=== PATIENT | female | born 1995 | race Hispanic/Latino ===

== ENCOUNTER 2018-11-28 20:13 | Emergency (ER) | payer BC, SELFPAY ==
[2018-11-28] MEDS ORDERED: NA CHLORIDE 0.9% 1,000 ML ONE (21:11)
[2018-11-28 21:26] LABS: Absolute Lymphocytes (CBC) 2.6 K/uL (0.7-4.9); Absolute Monocytes 0.4 K/uL (0.1-1.3); Absolute Neutrophil 3.4 K/uL (1.8-8.0); Basophils % 0.4 % (0-1.3); Eosinophils % 0.8 % (0-4.4); Hematocrit 42.7 % (36.0-45.0); Lymphocytes % 40.4 % (15.3-44.8); MPV 9.7 fL (7.6-11.3); Monocytes % 6.1 % (3.3-12.3); RBC Red Blood Cell Count 4.74 M/uL (3.86-4.86)
[2018-11-28 21:38] LABS: ALT/SGPT 23 U/L (12-78); AST/SGOT 20 U/L (15-37); Albumin 4.8 g/dL (3.4-5.0); Alkaline Phosphatase 76 U/L (45-117); BUN Blood Urea Nitrogen 11 mg/dL (7-18); Bicarbonate 29 mmol/L (21-32); Bilirubin Direct 0.1 mg/dL (0-0.2); Bilirubin Total 0.4 mg/dL (0.2-1.0); Glucose Level 94 mg/dL (74-106); Lipase 110 U/L (73-393); Potassium 3.7 mmol/L (3.5-5.1); Protein, Total 8.7 g/dL (6.4-8.2); Sodium Level 139 mmol/L (136-145)
[2018-11-28 22:51] LABS: Urine Blood 3+ (NEG); Urine Glucose NEGATIVE (NEG); Urine Protein NEGATIVE (NEG); Urine Specific Gravity 1.015 (1.005-1.030)
--- NOTE | 2018-11-28 23:57 | EDPHYS ---
Physician Documentation [facility] Name: Raghavendra Dominguez Age: 23 yrs Sex: Female : 1995 Arrival Date: 11/28/2018 Time: 20:20 Bed 13 Private MD: ED Physician Yovanny Talley HPI: 11/28 20:58 This 23 yrs old Female presents to ER via Ambulatory with complaints of pkl Abdominal Pain. 20:58 The patient presents with abdominal pain in the left upper quadrant, in the left lower pkl quadrant. Onset: The symptoms/episode began/occurred yesterday. The symptoms do not radiate. Associated signs and symptoms: none. 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 - Social history:: Smoking status: Patient/guardian denies using tobacco. - Ebola Screening: : No symptoms or risks identified at this time. ROS: 20:58 Eyes: Negative for injury, pain, redness, and discharge, ENT: Negative for injury, pkl pain, and discharge, Neck: Negative for injury, pain, and swelling, Cardiovascular: Negative for chest pain, palpitations, and edema, Respiratory: Negative for shortness of breath, cough, wheezing, and pleuritic chest pain. 20:58 Abdomen/GI: Positive for abdominal pain, of the left upper quadrant and left lower quadrant. 20:58 Back: Negative for acute changes. 20:58 : Negative for urinary symptoms. 20:58 MS/extremity: Negative for acute changes. 20:58 Skin: Negative for rash. 20:58 Neuro: Negative for altered mental status. Exam: 20:58 Head/Face: Normocephalic, atraumatic. Eyes: Pupils equal round and reactive to light, pkl extra-ocular motions intact. Lids and lashes normal. Conjunctiva and sclera are non-icteric and not injected. Cornea within normal limits. Periorbital areas with no swelling, redness, or edema. ENT: Nares patent. No nasal discharge, no septal abnormalities noted. Tympanic membranes are normal and external auditory canals are clear. Oropharynx with no redness, swelling, or masses, exudates, or evidence of obstruction, uvula midline. Mucous membranes moist. Neck: Trachea midline, no thyromegaly or masses palpated, and no cervical lymphadenopathy. Supple, full range of motion without nuchal rigidity, or vertebral point tenderness. No Meningismus. Chest/axilla: Normal chest wall appearance and motion. Nontender with no deformity. No lesions are appreciated. Cardiovascular: Regular rate and rhythm with a normal S1 and S2. No gallops, murmurs, or rubs. Normal PMI, no JVD. No pulse deficits. Respiratory: Lungs have equal breath sounds bilaterally, clear to auscultation and percussion. No rales, rhonchi or wheezes noted. No increased work of breathing, no retractions or nasal flaring. 20:58 Abdomen/GI: Bowel sounds: normal, Palpation: soft, mild abdominal tenderness, in the left upper quadrant and left lower quadrant. 20:58 Back: Exam negative for acute changes. 20:58 : Exam negative for acute changes. 20:58 Musculoskeletal/extremity: Exam is negative for acute changes. 20:58 Skin: Exam negative for rash. 20:58 Neuro: Orientation: is normal, Mentation: is normal, Cranial nerves: grossly normal, Motor: Vital Signs: 20:40 BP 119 / 77; Pulse 83; Resp 16; Temp 98.1; Pulse Ox 100% on R/A; Weight 49.9 kg; Height aa1 5 ft. 6 in. (167.64 cm); Pain 5/10; 22:00 BP 115 / 76; Pulse 79; Resp 18; Pulse Ox 99% on R/A; rr5 23:15 BP 114 / 74; Pulse 77; Resp 17 S; Temp 98.4(O); Pulse Ox 100% on R/A; jd3 0507 00:20 BP 105 / 82; Pulse 75; Resp 17; Temp 98.4; Pulse Ox 100% on R/A; rr5 05 20:40 Body Mass Index 17.75 (49.90 kg, 167.64 cm) aa1 MDM: 11/28 20:46 Patient medically screened. pkl 23:56 Data reviewed: vital signs, nurses notes, lab test result(s), radiologic studies, CT pkl scan. 11/28 20:56 Order name: Basic Metabolic Panel; Complete Time: 22:08 pkl 11/28 20:56 Order name: CBC with Diff; Complete Time: 22:08 pkl 11/28 20:56 Order name: Creatinine for Radiology; Complete Time: 22:08 pkl 11/28 20:56 Order name: Hepatic Function; Complete Time: 22:08 pkl 11/28 20:56 Order name: Lipase; Complete Time: 22:08 pkl 11/28 21:48 Order name: Urine Dipstick--Ancillary (enter results); Complete Time: 23:54 ar5 11/28 20:56 Order name: IV Saline Lock; Complete Time: 21:17 pkl 11/28 20:56 Order name: Labs collected and sent; Complete Time: 21:17 pkl 11/28 21:48 Order name: Urine --Ancillary (enter results); Complete Time: 23:54 ar5 11/28 22:09 Order name: CT Abd/Pelvis - W/Contrast pkl Administered Medications: 21:20 Drug: NS 0.9% 1000 ml Route: IV; Rate: 1000 ml; Site: right forearm; rr5 23:00 Follow up: Response: No adverse reaction; IV Status: Completed infusion; IV Intake: rr5 1000ml Disposition: 11/28/18 23:56 Discharged to Home. Impression: Abdominal pain. - Condition is Stable. - Prescriptions for Ultram 50 mg Oral Tablet - take 1 tablet by ORAL route every 8 hours As needed; 20 tablet. - Medication Reconciliation Form, Thank You Letter, Antibiotic Education, Prescription Opioid Use, Work release form form. - Follow up: Private Physician; When: 2 - 3 days; Reason: Re-evaluation by your physician. - Problem is new. - Symptoms have improved. Signatures: Dispatcher [employer] Adrienne Russell RN RN aa1 Yovanny Talley MD MD pkl Jason Urias RN RN rr5 Corrections: (The following items were deleted from the chart) 11/29 00:25 11/28 23:56 11/28/2018 23:56 Discharged to Home. Impression: Abdominal pain. Condition rr5 is Stable. Forms are Medication Reconciliation Form, Thank You Letter, Antibiotic Education, Prescription Opioid Use. Follow up: Private Physician; When: 2 - 3 days; Reason: Re-evaluation by your physician. Problem is new. Symptoms have improved. pkl
--- NOTE | 2018-11-28 23:57 | ER ---
Nurse's Notes [facility] Name: Raghavendra Dominguez Age: 23 yrs Sex: Female : 1995 Arrival Date: 11/28/2018 Time: 20:20 Bed 13 Private MD: Diagnosis: Abdominal pain Presentation: 11/28 20:38 Presenting complaint: Patient states: she started her period yesterday and was having aa1 cramps that were worse than usual but today she began to have a sharp pain in her LUQ. Denies N/V/D. Transition of care: patient was not received from another setting of care. Onset of symptoms was November 27, 2018. Risk Assessment: Do you want to hurt yourself or someone else? Patient reports no desire to harm self or others. Initial Sepsis Screen: Does the patient meet any 2 criteria? No. Patient's initial sepsis screen is negative. Does the patient have a suspected source of infection? No. Patient's initial sepsis screen is negative. Care prior to arrival: None. 20:38 Method Of Arrival: Ambulatory aa1 20:38 Acuity: KIM 3 aa1 Triage Assessment: 20:40 General: Appears in no apparent distress. comfortable, Behavior is calm, cooperative, aa1 appropriate for age. 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 - Social history:: Smoking status: Patient/guardian denies using tobacco. - Ebola Screening: : No symptoms or risks identified at this time. Screenin:30 Abuse screen: Denies threats or abuse. Denies injuries from another. Nutritional rr5 screening: No deficits noted. Tuberculosis screening: No symptoms or risk factors identified. Fall Risk IV access (20 points). Total Barclay Fall Scale indicates No Risk (0-24 pts). Assessment: 20:50 General: Appears in no apparent distress. uncomfortable, Behavior is calm, cooperative, rr5 appropriate for age. 20:50 Pain: Complains of pain in left upper quadrant Pain does not radiate. Pain currently is rr5 5 out of 10 on a pain scale. Quality of pain is described as aching, Pain began gradually, Is intermittent. Neuro: Level of Consciousness is awake, alert, obeys commands, Oriented to person, place, time, situation, Appropriate for age. Cardiovascular: Capillary refill < 3 seconds Patient's skin is warm and dry. Respiratory: Airway is patent Respiratory effort is even, unlabored, Respiratory pattern is regular, symmetrical. GI: Abdomen is round Bowel sounds present X 4 quads. Abd is soft and non tender X 4 quads. Reports upper abdominal pain. : No signs and/or symptoms were reported regarding the genitourinary system. EENT: No signs and/or symptoms were reported regarding the EENT system. Derm: Skin is intact, Skin temperature is warm. Musculoskeletal: Capillary refill < 3 seconds, Range of motion: intact in all extremities. 21:30 Reassessment: Patient appears in no apparent distress at this time. No changes from rr5 previously documented assessment. 22:20 Reassessment: Patient appears in no apparent distress at this time. Patient is alert, rr5 oriented x 3, equal unlabored respirations, skin warm/dry/pink. awaiting for result. no complaints made. 23:30 Reassessment: Patient appears in no apparent distress at this time. Patient is alert, rr5 oriented x 3, equal unlabored respirations, skin warm/dry/pink. reexamined by ED provider, for discharge. 11/29 00:20 Reassessment: Patient appears in no apparent distress at this time. Patient is alert, rr5 oriented x 3, equal unlabored respirations, skin warm/dry/pink. discharge instruction given and explained without complaints made. Vital Signs: 11/28 20:40 BP 119 / 77; Pulse 83; Resp 16; Temp 98.1; Pulse Ox 100% on R/A; Weight 49.9 kg; Height aa1 5 ft. 6 in. (167.64 cm); Pain 5/10; 22:00 BP 115 / 76; Pulse 79; Resp 18; Pulse Ox 99% on R/A; rr5 23:15 BP 114 / 74; Pulse 77; Resp 17 S; Temp 98.4(O); Pulse Ox 100% on R/A; jd3 11/29 00:20 BP 105 / 82; Pulse 75; Resp 17; Temp 98.4; Pulse Ox 100% on R/A; rr5 11/28 20:40 Body Mass Index 17.75 (49.90 kg, 167.64 cm) aa1 ED Course: 11/28 20:20 Patient arrived in ED. mr 20:39 Triage completed. aa1 20:40 Arm band placed on right wrist. Patient placed in an exam room, on a stretcher. aa1 20:46 Yovanny Talley MD is Attending Physician. pkl 20:51 Jason Urias, PHIL is Primary Nurse. rr5 21:00 Patient has correct armband on for positive identification. Bed in low position. Call rr5 light in reach. Side rails up X2. 21:16 Inserted saline lock: 22 gauge in right antecubital area, using aseptic technique. ag4 Blood collected. 22:34 CT completed. Patient tolerated procedure well. Patient moved to CT. Patient moved back ia from CT. 22:45 CT Abd/Pelvis - W/Contrast In Process Unspecified. EDMS 11/29 00:20 No provider procedures requiring assistance completed. IV discontinued, intact, rr5 bleeding controlled, No redness/swelling at site. Pressure dressing applied. Administered Medications: 11/28 21:20 Drug: NS 0.9% 1000 ml Route: IV; Rate: 1000 ml; Site: right forearm; rr5 23:00 Follow up: Response: No adverse reaction; IV Status: Completed infusion; IV Intake: rr5 1000ml Intake: 23:00 IV: 1000ml; Total: 1000ml. rr5 Outcome: 23:56 Discharge ordered by . fatuma 11/29 00:20 Discharged to home ambulatory, with family. rr5 Condition: stable Discharge instructions given to patient, Instructed on discharge instructions, follow up and referral plans. medication usage, Demonstrated understanding of instructions, follow-up care, medications, Prescriptions given X 1. 00:25 Patient left the ED. rr5 Signatures: Dispatcher [employer] EDND Adrienne Redd RN RN aa1 Yovanny Talley MD MD pkl Rivera, Makayla mr Stark, Aldo Martin RN RN jJason Schuster RN RN rr5 Jere Joshua ag4 Corrections: (The following items were deleted from the chart) 11/28 23:22 23:15 BP 114 / 74; Pulse 77bpm; Resp 17bpm; Spontaneous; Pulse Ox 100% RA; jd3 jd3
--- NOTE | 2018-11-29 11:23 | RAD REPORT ---
EXAM DESCRIPTION: CT - Abdomen Pelvis W Contrast - 11/29/2018 2:20 am COMPARISON: None CLINICAL HISTORY: Left upper quadrant pain TECHNIQUE: Multiple helical axial images were obtained through the abdomen and pelvis using intraven ous contrast (90 mL Isovue 300). Coronal and sagittal reformatted images were obtained. All CT scans at this facility use dose modulation, iterative reconstruction, and/or weight-based dosi ng when appropriate to reduce radiation dose to as low as reasonably achievable. FINDINGS: Lung bases: Appear unremarkable. Liver: Homogenous attenuation is noted. Gallbladder/biliary: Appears unremarkable Pancreas: Unremarkable. No evidence of ductal enlargement. Spleen: Appears unremarkable. No splenomegaly. Adrenals: Unremarkable. Kidneys and ureters: No evidence of hydronephrosis. Normal enhancement. Bladder: Unremarkable. Pelvic organs: Unremarkable. Bowel: No evidence of bowel obstruction. No bowel wall thickening. Appendix appears unremarkable. Vasculature: Unremarkable. Peritoneum: No free air. There is a small amount nonspecific free fluid in the pelvis. Lymph nodes: Unremarkable. Soft tissues: Unremarkable. Bones: Unremarkable. IMPRESSION: No evidence for an acute process within the abdomen or pelvis. Electronically signed by: Genaro Ng MD 11/28/2018 11:00 PM CDT Due to temporary technical issues with the PACS/Fluency reporting system, reports are being signed by the in house radiologist as a courtesy to ensure prompt reporting. The interpreting radiologist is f ully responsible for the content of the report.
== END 2018-11-29 00:25 | disposition home or self-care (01) ==
LOC: ER 20:13
DX: R10.9 Unspecified abdominal pain (principal)
CPT/HCPCS: 36415; 74177; 80048; 80076; 81003; 81025; 83690; 85025; 96360; 96361; 99284; J7030; Q9967

== ENCOUNTER 2021-06-21 02:04 | Observation (INO) | payer BC, SELFPAY ==
[2021-06-21] MEDS ORDERED: MORPHINE 2 MG/ML SYR ONE (03:24)
[2021-06-21] MEDS ORDERED: FAMOTIDINE 20 MG/2 ML VIAL IV ONE (03:24)
[2021-06-21] MEDS ORDERED: NA CHLORIDE 0.9% 1,000 ML ONE ×2 (03:24→08:11)
[2021-06-21] MEDS ORDERED: ONDANSETRON 4 MG/2 ML VIAL ONE ×2 (03:24→10:47)
[2021-06-21 03:55] LABS: Absolute Lymphocytes (CBC) 1.1 K/uL (0.7-4.9); Basophils % 0.1 % (0-1.3); Hematocrit 41.9 % (36.0-45.0); Lymphocytes % 6.9 % (15.3-44.8); MPV 8.9 fL (7.6-11.3); RBC Red Blood Cell Count 4.75 M/uL (3.86-4.86)
[2021-06-21 04:10] LABS: ALT/SGPT 24 U/L (12-78); AST/SGOT 14 U/L (15-37); Albumin 4.2 g/dL (3.4-5.0); Alkaline Phosphatase 56 U/L (45-117); BUN Blood Urea Nitrogen 15 mg/dL (7-18); Bicarbonate 26 mmol/L (21-32); Bilirubin Direct < 0.1 mg/dL (0-0.2); Bilirubin Total 0.4 mg/dL (0.2-1.0); Glucose Level 116 mg/dL (74-106); Lipase 71 U/L (73-393); Protein, Total 8.2 g/dL (6.4-8.2); Sodium Level 139 mmol/L (136-145)
[2021-06-21 04:28] LABS: Urine Blood Negative (Negative); Urine Glucose Negative (Negative); Urine Protein Negative (Negative); Urine Specific Gravity >=1.030 (1.005-1.030); Urine pH 5.5 (5.0-7.0)
[2021-06-21 06:13] LABS: Urine Specific Gravity/Preg >1.030 (1.005-1.030)
--- NOTE | 2021-06-21 07:37 | ER ---
Nurse's Notes [facility] Name: Raghavendra Dominguez Age: 26 yrs Sex: Female : 1995 Arrival Date: 06/21/2021 Time: 02:07 Bed 18 Private MD: Diagnosis: Abdominal pain, Generalized;Vomiting;Elevated white blood cell count;Acute appendicitis with localized peritonitis Presentation: 06/21 02:44 Chief complaint: Patient states: she started having abdominal pain with vomiting since bb approx 2100 last night no radiation and intermittent pain. Coronavirus screen: vomiting. Ebola Screen: No symptoms or risks identified at this time. Initial Sepsis Screen: Does the patient meet any 2 criteria? No. Patient's initial sepsis screen is negative. Does the patient have a suspected source of infection? No. Patient's initial sepsis screen is negative. Risk Assessment: Do you want to hurt yourself or someone else? Patient reports no desire to harm self or others. Onset of symptoms was June 20, 2021. 02:44 Method Of Arrival: Ambulatory bb 02:44 Acuity: KIM 3 bb Triage Assessment: 04:25 General: Appears in no apparent distress. comfortable, Reports abdominal pain is cc4 better; denies nausea \T\ present time.. Behavior is calm, cooperative, Up \T\ ambulatory to restroom with urine specimen obtained with urine negative \T\ dipstick done.. GI: Reports decreasing abdominal pain; denies nausea \T\ present time. 04:25 Pain: Pain currently is 3 out of 10 on a pain scale. Quality of pain is described as cc4 crampy, Is intermittent, Alleviated by medications. 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 - Social history:: Smoking status: Patient denies any tobacco usage or history of. Patient/guardian denies using alcohol, street drugs. Screenin:25 Abuse screen: Denies threats or abuse. Nutritional screening: No deficits noted. cc4 Tuberculosis screening: No symptoms or risk factors identified. Fall Risk None identified. Assessment: 04:25 GI: Bowel sounds present X 4 quads. Abd is soft and non tender X 4 quads. cc4 04:40 Reassessment: Patient appears in no apparent distress at this time. To CT via cc4 wheelchair. 04:55 Reassessment: Patient appears in no apparent distress at this time. Returned from CT cc4 via wheelchair;. 07:15 Reassessment: Assumed care of patient, patient currently awake. AAO X 3, sitting up in sl2 bed - shows no signs of acute distress or discomfort - Patient verbalized mild pain, now 2 of 10, denies needing pain medication at this time. Vital signs stable. Family present at bedside. Will continue to re-assess and monitor. 07:15 Pain:. Neuro: No deficits noted. 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 Full function Gait is steady, Speech is normal, Facial symmetry appears normal. Cardiovascular: No deficits noted. Capillary refill < 3 seconds Rhythm is regular. Respiratory: No deficits noted. 07:39 Reassessment: Dr Velásquez present at bedside for patient re-assessment, update on 2 diagnostic findings and disposition. Vital Signs: 02:44 BP 132 / 92; Pulse 100; Resp 16 S; Temp 98.1(O); Pulse Ox 100% on R/A; Weight 56.25 kg bb (R); Height 5 ft. 6 in. (167.64 cm) (R); Pain 6/10; 07:15 BP 128 / 76; Pulse 83; Resp 18; Temp 98.6; Pulse Ox 100% on R/A; sl2 07:45 BP 124 / 74; Pulse 88; Resp 18; Temp 98.8(O); Pulse Ox 100% on R/A; sl2 08:00 BP 113 / 69; Pulse 102; Resp 18; Pulse Ox 100% ; sl2 02:44 Body Mass Index 20.01 (56.25 kg, 167.64 cm) bb ED Course: 02:07 Patient arrived in ED. bp1 02:46 Triage completed. bb 02:46 Arm band placed on. bb 02:54 Tuan Villeda MD is Attending Physician. mh7 03:09 David Sanchez, RN is Primary Nurse. mr2 03:38 Basic Metabolic Panel Sent. cc4 03:38 CBC with Diff Sent. cc4 03:38 Hepatic Function Sent. cc4 03:38 Lipase Sent. cc4 03:39 Inserted saline lock: 20 gauge in right antecubital area, using aseptic technique. oe Blood collected. 04:20 CT Abd/Pelvis - IV Contrast Only Sent. cc4 04:25 Patient has correct armband on for positive identification. Bed in low position. Call cc4 light in reach. Side rails up X 1. Pulse ox on. NIBP on. 04:25 No provider procedures requiring assistance completed. cc4 05:05 CT Abd/Pelvis - IV Contrast Only In Process Unspecified. EDMS 07:10 Attending Physician role handed off by Tuan Villeda MD karan 07:10 Leo Velásquez MD is Attending Physician. karan 07:35 Dao Maradiaga MD is Hospitalizing Provider. karan 09:08 Patient admitted, IV remains in place. sl2 Administered Medications: 03:35 Drug: NS 0.9% 1000 ml Route: IV; Rate: 1000 ml; Site: right antecubital; cc4 07:25 Follow up: Response: No adverse reaction; IV Status: Completed infusion; IV Intake: sl2 1000ml 03:35 Drug: morphine 2 mg Route: IVP; Site: right antecubital; cc4 07:25 Follow up: Response: No adverse reaction 2 03:37 Drug: Zofran (Ondansetron) 4 mg Route: IVP; Site: right antecubital; cc4 07:24 Follow up: Response: No adverse reaction 2 03:39 Drug: Pepcid (famotidine) 20 mg Route: IVP; Site: right antecubital; cc4 07:24 Follow up: Response: No adverse reaction 2 07:50 Drug: NS 0.9% 1000 ml Route: IV; Rate: 125 ml/hr; Site: right forearm; sl2 08:43 Follow up: Response: No adverse reaction; IV Status: Infusion continued 2 07:55 Drug: Zosyn (piperacillin-tazobactam) 3.375 grams Route: IVPB; Infused Over: 60 mins; 2 Site: right forearm; 08:43 Follow up: Response: No adverse reaction; IV Status: Infusion continued sl2 Intake: 07:25 IV: 1000ml; Total: 1000ml. sl2 Outcome: 07:36 Decision to Hospitalize by Provider. karan 09:07 Admitted to OR accompanied by nurse, via wheelchair. sl2 09:07 Condition: stable 09:07 Discharge instructions given to patient, Instructed on the need for admit, Demonstrated understanding of Need for surgery and inpatient admission 11:07 Patient left the ED. em1 Signatures: Dispatcher [employer] EDMS Leo Velásquez MD MD cha Ballard, Brenda, RN RN Kermit Ugalde em1 Joby Montoya Brittany bp1 Holmes, Maurice, MD MD mh7 Nia Glasgow, RN RN cc4 David Sanchez RN RN mr2 Keiko Salinas RN RN sl2 Corrections: (The following items were deleted from the chart) 08:08 07:45 BP 124 / 74; Pulse 67bpm; Resp 18bpm; Pulse Ox 100% RA; Temp 98.8F Oral; sl2 sl2 08:08 07:15 BP 128 / 76; Pulse 79bpm; Resp 18bpm; Pulse Ox 100% RA; Temp 98.6F; sl2 sl2
--- NOTE | 2021-06-21 07:37 | EDPHYS ---
Physician Documentation [facility] Name: Raghavendra Dominguez Age: 26 yrs Sex: Female : 1995 Arrival Date: 06/21/2021 Time: 02:07 Bed 18 Private MD: ED Physician Leo Velásquez HPI: 06/21 03:06 This 26 yrs old Female presents to ER via Ambulatory with complaints of mh7 Abdominal Pain, Vomiting. 03:06 The patient presents with abdominal pain in the lower abdomen. Onset: The mh7 symptoms/episode began/occurred last night, at 21:00. The symptoms do not radiate. Associated signs and symptoms: Pertinent positives: nausea and vomiting, Pertinent negatives: anorexia, blood in stools, chest pain, diarrhea, dysuria, fever, headache, hematuria, palpitations, shortness of breath, vaginal discharge, vomiting blood. The symptoms are described as intermittent, vague, waxing/waning. Modifying factors: The symptoms are alleviated by nothing, the symptoms are aggravated by nothing. Severity of pain: At its worst the pain was moderate last night, in the emergency department the pain has improved moderately. HANGER OFF: 02:46 LMP 05/26/2021 bb Historical: - Allergies: 02:46 No Known Allergies; bb - Home Meds: 02:46 None [Active]; bb - PMHx: 02:46 None; bb - PSHx: 02:46 None; bb - Immunization history:: Adult Immunizations up to date, Client reports receiving the 2nd dose of the Covid vaccine. - Social history:: Smoking status: Patient denies any tobacco usage or history of. Patient/guardian denies using alcohol, street drugs. ROS: 03:06 Constitutional: Negative for fever, chills, and weight loss, Eyes: Negative for injury, mh7 pain, redness, and discharge, ENT: Negative for injury, pain, and discharge, Neck: Negative for injury, pain, and swelling, Cardiovascular: Negative for chest pain, palpitations, and edema, Respiratory: Negative for shortness of breath, cough, wheezing, and pleuritic chest pain, Back: Negative for injury and pain, : Negative for injury, bleeding, discharge, and swelling, MS/Extremity: Negative for injury and deformity, Skin: Negative for injury, rash, and discoloration, Neuro: Negative for headache, weakness, numbness, tingling, and seizure, Psych: Negative for depression, anxiety, suicide ideation, homicidal ideation, and hallucinations, Allergy/Immunology: Negative for hives, rash, and allergies, Endocrine: Negative for neck swelling, polydipsia, polyuria, polyphagia, and marked weight changes, Hematologic/Lymphatic: Negative for swollen nodes, abnormal bleeding, and unusual bruising. Exam: 03:06 Constitutional: This is a well developed, well nourished patient who is awake, alert, mh7 and in no acute distress. Head/Face: Normocephalic, atraumatic. Eyes: Pupils equal round and reactive to light, extra-ocular motions intact. Lids and lashes normal. Conjunctiva and sclera are non-icteric and not injected. Cornea within normal limits. Periorbital areas with no swelling, redness, or edema. Neck: Trachea midline, no thyromegaly or masses palpated, and no cervical lymphadenopathy. Supple, full range of motion without nuchal rigidity, or vertebral point tenderness. No Meningismus. Chest/axilla: Normal chest wall appearance and motion. Nontender with no deformity. No lesions are appreciated. Cardiovascular: Regular rate and rhythm with a normal S1 and S2. No gallops, murmurs, or rubs. Normal PMI, no JVD. No pulse deficits. Respiratory: Lungs have equal breath sounds bilaterally, clear to auscultation and percussion. No rales, rhonchi or wheezes noted. No increased work of breathing, no retractions or nasal flaring. Back: No spinal tenderness. No costovertebral tenderness. Full range of motion. Skin: Warm, dry with normal turgor. Normal color with no rashes, no lesions, and no evidence of cellulitis. MS/ Extremity: Pulses equal, no cyanosis. Neurovascular intact. Full, normal range of motion. Neuro: Awake and alert, GCS 15, oriented to person, place, time, and situation. Cranial nerves II-XII grossly intact. Motor strength 5/5 in all extremities. Sensory grossly intact. Cerebellar exam normal. Normal gait. Psych: Awake, alert, with orientation to person, place and time. Behavior, mood, and affect are within normal limits. Vital Signs: 02:44 BP 132 / 92; Pulse 100; Resp 16 S; Temp 98.1(O); Pulse Ox 100% on R/A; Weight 56.25 kg bb (R); Height 5 ft. 6 in. (167.64 cm) (R); Pain 6/10; 07:15 BP 128 / 76; Pulse 83; Resp 18; Temp 98.6; Pulse Ox 100% on R/A; sl2 07:45 BP 124 / 74; Pulse 88; Resp 18; Temp 98.8(O); Pulse Ox 100% on R/A; sl2 08:00 BP 113 / 69; Pulse 102; Resp 18; Pulse Ox 100% ; sl2 02:44 Body Mass Index 20.01 (56.25 kg, 167.64 cm) MDM: 07:10 Patient medically screened. [facility] 06/21 03:06 Order name: Basic Metabolic Panel; Complete Time: 04:12 [facility] 06/21 03:06 Order name: CBC with Diff; Complete Time: 04:07 [facility] 06/21 03:06 Order name: Hepatic Function; Complete Time: 04:12 [facility] 06/21 03:06 Order name: Lipase; Complete Time: 04:12 [facility] 06/21 04:28 Order name: Urine Dipstick-Ancillary [facility] 06/21 06:08 Order name: Urine --Ancillary (enter results); Complete Time: 06:22 06/21 04:07 Order name: CT Abd/Pelvis - IV Contrast Only; Complete Time: 19:19 ej 06/21 07:40 Order name: SARS-COV-2 RT PCR (Document "Date of Onset" if Symptomatic); Complete Time: iw 19:19 06/21 03:06 Order name: IV Saline Lock; Complete Time: 03:38 06/21 03:06 Order name: Labs collected and sent; Complete Time: 03:38 [facility] 06/21 03:06 Order name: Urine Dipstick-Ancillary (obtain specimen); Complete Time: 04:28 [facility] 06/21 03:06 Order name: Urine Test (obtain specimen); Complete Time: 04:28 Administered Medications: 03:35 Drug: NS 0.9% 1000 ml Route: IV; Rate: 1000 ml; Site: right antecubital; cc4 07:25 Follow up: Response: No adverse reaction; IV Status: Completed infusion; IV Intake: sl2 1000ml 03:35 Drug: morphine 2 mg Route: IVP; Site: right antecubital; cc4 07:25 Follow up: Response: No adverse reaction sl2 03:37 Drug: Zofran (Ondansetron) 4 mg Route: IVP; Site: right antecubital; cc4 07:24 Follow up: Response: No adverse reaction sl2 03:39 Drug: Pepcid (famotidine) 20 mg Route: IVP; Site: right antecubital; cc4 07:24 Follow up: Response: No adverse reaction sl2 07:50 Drug: NS 0.9% 1000 ml Route: IV; Rate: 125 ml/hr; Site: right forearm; sl2 08:43 Follow up: Response: No adverse reaction; IV Status: Infusion continued sl2 07:55 Drug: Zosyn (piperacillin-tazobactam) 3.375 grams Route: IVPB; Infused Over: 60 mins; sl2 Site: right forearm; 08:43 Follow up: Response: No adverse reaction; IV Status: Infusion continued sl2 Disposition Summary: 06/21/21 07:36 Hospitalization Ordered Hospitalization Status: Observation karan Provider: Dao Maradiaga cha Location: Telemetry/MedSur (observation) karan Condition: Stable karan Problem: new karan Symptoms: have improved karan Bed/Room Type: Standard karan Room Assignment: karan Diagnosis - Abdominal pain, Generalized karan - Vomiting karan - Elevated white blood cell count karan - Acute appendicitis with localized peritonitis karan Forms: - Medication Reconciliation Form karan - SBAR form karan Signatures: Dispatcher [employer] Leo Lala MD MD cha Ballard, Brenda, RN RN bb Holmes, Maurice, MD MD mh7 Johnson, Evan, PA PA ej Cooper, Christie, RN RN cc4 Keiko Salinas RN RN sl2
--- NOTE | 2021-06-21 08:05 | RAD REPORT ---
EXAM DESCRIPTION: CTAbdomen Pelvis W Contrast - 06/21/2021 5:04 am CLINICAL HISTORY: Abd pain;Nausea / vomiting COMPARISON: Abdomen Pelvis W Contrast dated 11/28/2018 TECHNIQUE: CT of the abdomen and pelvis was performed. All CT scans are performed using dose optimization technique as appropriate and may include automated exposure control or mA/KV adjustment according to patient size. FINDINGS: Lower chest: No acute abnormality. Liver: No acute abnormality or suspicious lesions. Biliary: No biliary ductal dilatation. Stomach: No significant focal abnormality. Duodenum: No significant focal abnormality. Pancreas: No significant abnormality. Spleen: No significant abnormality. Adrenal: No suspicious lesions. Kidney/ureter: No hydronephrosis. No renal calculi. Retroperitoneum: No retroperitoneal adenopathy. Vascular: No aneurysm. Bowel: Appendix demonstrating mild periappendiceal stranding increased distention. Appendicoliths are present. Peritoneum: No ascites or free air. Bladder: Grossly unremarkable. Reproductive: Corpus luteal cyst in the left adnexa. Free fluid is present. Bones: No acute fracture. Other: n/a IMPRESSION: Findings are suspicious for mild or early acute nonperforated appendicitis. Free fluid in the pelvis may be related to inflammatory changes associated with the appendix or physi ologic. No abscess.
[2021-06-21] MEDS ORDERED: BUPIVACAINE 0.5% PF 10 ML VIAL ONE (08:10)
[2021-06-21] MEDS ORDERED: NA CHLORIDE 0.9% 100 ML ONE (08:11)
[2021-06-21] MEDS ORDERED: PIPERACIL/TAZO 3.375 GM VIAL IV ONE (08:11)
[2021-06-21] MEDS ORDERED: propofoL 200 MG/20 ML VIAL IV ONE (10:19)
[2021-06-21] MEDS ORDERED: FENTANYL CITR 100 MCG/2 ML ONE ×2 (10:20→11:01)
[2021-06-21] MEDS ORDERED: LIDOCAINE 1% MPF 5 ML VIAL ONE (10:20)
[2021-06-21] MEDS ORDERED: ROCURONIUM 50 MG/5 ML VIAL IV ONE (10:21)
[2021-06-21] MEDS ORDERED: KETOROLAC 30 MG/ML INJ ONE (10:46)
[2021-06-21] MEDS ORDERED: dexAMETHasone 10 MG/ML VIAL ONE (10:47)
[2021-06-21] MEDS ORDERED: NEOSTIGMINE 1 MG/ML -5 ML ONE (11:05)
[2021-06-21] MEDS ORDERED: GLYCOPYRROLATE 0.2 MG/ML SYR ONE (11:05)
[2021-06-21] MEDS ORDERED: Mastisol Adhesive Liq ONE (11:27)
[2021-06-21] MEDS ORDERED: HYDROMORPHONE HCL 1 MG/ML INJ IV PRN (11:28)
[2021-06-21] MEDS ORDERED: ONDANSETRON 4 MG/2 ML VIAL IV PRN (11:28)
[2021-06-21] MEDS ORDERED: HYDROCODONE/APAP 7.5/325 MG TAB PO PRN (11:28)
--- NOTE | 2021-06-21 11:28 | P.OP ---
Svp: Simon SULLIVAN Preoperative diagnosis: Acute Appendicitis Postoperative diagnosis: same Primary procedure: Lap Appy Anesthesia: General Estimated blood loss: min Specimen: Appy Findings: as above Complications: None Transferred to: Recovery Room Condition: Good
[2021-06-21] MEDS ORDERED: CEFOXITIN SODIUM 1 GM/VIAL IVPB SCH (12:00)
--- NOTE | 2021-06-21 12:09 | OP ---
Date of Procedure: 06/21/2021 Surgeon: Dao Maradiaga MD Corrosion Control Engineer: Simon Bass, surgical product sales consultant certified. Preoperative Diagnosis: Acute appendicitis. Postoperative Diagnosis: Acute appendicitis. Procedure: Laparoscopic appendectomy. Estimated Blood Loss: Minimal. Specimen: Appendix. Finding: As above. Anesthesia: General. Complications: None. Disposition: The patient tolerated the procedure in stable condition and taken to Recovery in good g eneral condition. Procedure In Detail: The patient was brought to the OR and placed in supine position. General anest hesia begun. The patient was prepped and draped in the usual sterile fashion. Marcaine 0.5% was inf iltrated locally. A 15-blade was used to make a 1 cm supraumbilical midline incision. Subcutaneous tissue divided. Fascia identified and divided. A #1 Vicryl stay suture was placed. Peritoneal cavi ty was entered with blunt dissection. A 12 mm trocar was placed into the peritoneal cavity under dir ect vision. Pneumoperitoneum was established. Then, two 5 mm trocars were placed, 1 in the suprapub ic region and 1 in the left lower quadrant. Laparoscopy revealed acute appendicitis with induration and injection of blood vessel as well as inflammation. Base of the appendix and mesoappendix clearly identified. Endo-SUKUMAR stapling device used to staple both structures and then the appendix retrieved through the umbilicus via an EndoCatch bag. Right lower quadrant and pelvic region irrigated. Effl uent clear. No evidence of bleeding or bile leakage. Bowel injury appreciated. Subsequently, all t rocars were removed under direct vision. Stay sutures were tied to each other across the fascial def ect. Subcutaneous wounds were irrigated. Bleeding controlled with cautery. A 3-0 chromic used to a pproximate the subcutaneous tissue and close the skin. Sterile dressing applied. The patient was aw akened and taken to Recovery in good general condition. /MODL Voice ID: [id number] Report ID: [id number]
--- NOTE | 2021-06-21 12:33 | PREOPHP ---
Date of Admission: 06/21/2021 Reason For Admission: Abdominal pain. History Of Present Illness: The patient is a 26-year-old female with one-day history of diffuse abdo steffany pain localizing to the right lower quadrant associated with nausea, occasional vomiting, and mi nimal anorexia. No diarrhea or constipation. No blood in her stool. No dysuria or hematuria. No s ore throat, runny nose, cough, headaches, or dizziness. No chest pain. No fever or chills. Review of Systems: Otherwise unremarkable. Past Medical History: Negative. Past Surgical History: Negative. Allergies: NONE. Social History: The patient denies smoking or drinking. Family History: Noncontributory. Physical Examination: Vital Signs: Stable. She is afebrile. She is awake, alert, and oriented x3. Head and Neck: Cranial nerves 2 through 12 are grossly within normal limits. No neck masses. No JV D. Throat clear. Neck is supple. Chest: Clear. Heart: S1 and S2. Abdomen: Soft. Positive bowel sounds. Positive right lower quadrant tenderness with minimal reboun d. No rigidity or guarding. Extremities: Adequately perfused. Nontender. Neurologic: Nonfocal. Laboratory Data: White count is 15,000 with a left shift. CT of the abdomen and pelvis reviewed. Assessment: The patient has early acute non-perforated appendicitis. Plan: Admit n.p.o., IV fluid, IV antibiotic, to the OR for lap appy possible open. The patient unde rstands the risks, benefits, and alternatives and agrees to procedure. JOHANN/ERASMO Voice ID: [id number]
[2021-06-21] MEDS: Ringers Lactate 1,000 ML IV SCH (13:23)
[2021-06-21] MEDS: CEFOXITIN 1 GM in NA CHLORIDE 0.9% 50 ML IVPB SCH (16:57)
[2021-06-22] MEDS: CEFOXITIN 1 GM in NA CHLORIDE 0.9% 50 ML IVPB SCH (00:16)
[2021-06-22] MEDS: Ringers Lactate 1,000 ML IV SCH (00:18)
[2021-06-22 05:06] LABS: Absolute Lymphocytes (CBC) 1.3 K/uL (0.7-4.9); Basophils % 0.3 % (0-1.3); Hematocrit 37.1 % (36.0-45.0); MPV 9.4 fL (7.6-11.3); RBC Red Blood Cell Count 4.13 M/uL (3.86-4.86)
[2021-06-22 05:07] VITALS: O2SAT 99
[2021-06-22 08:13] VITALS: BP 108/57; TEMP 97.9
--- NOTE | 2021-06-22 10:10 | DS ---
Date of Discharge: 06/22/2021 Admitting Diagnosis: Acute appendicitis. Discharge Diagnosis: Acute appendicitis. Procedure Performed: Laparoscopic appendectomy. Hospital Course: The patient is a 26-year-old female, who was admitted with leukocytosis and acute a ppendicitis, underwent the aforementioned procedure. Postoperatively, she was tolerating diet, ambul ating, pain controlled on oral pain medicine, afebrile and her leukocytosis was improving, almost nor malized. Therefore, the patient will be discharged to home. Disposition: Home. Condition: Stable. Discharge Instructions: Resume home medications and diet. Activity as tolerated. No heavy lifting. Remove outer dressing in a.m. shower. Keep Steri-Strips on at all times. Follow up in my office i n 1 week. Call for appointment. Tylenol No. 3, one tablet p.o. q.4 p.r.n. pain, Cipro 500 mg p.o. q .12. /MODL Voice ID: [id number] Report ID: [id number]
== END 2021-06-22 10:00 | disposition home or self-care (01) ==
LOC: ER 02:04 → ERHOLD 07:38 → 2ND 12:45
PROVIDERS: ADMIT Surgery; ATTEND Surgery
PROC: 0DTJ4ZZ Resection of Appendix, Percutaneous Endoscopic Approach (ICD-10-PCS; principal; 2021-06-21 10:00)
DX: K35.80 Unspecified acute appendicitis (principal); Z20.822 Contact with and (suspected) exposure to COVID-19
CPT/HCPCS: 96365; 96361; 85025 ×2; 80048; 36415 ×2; 81025; 80076; 88304; 81003; 83690; 74177; 94010; 96375; 99285; 44970; U0003; Q9967; J2704; J2543; J3010 ×2; J1100; J2270; J2710; J7120 ×2; J7030 ×2; J0694 ×3; J2405 ×2; G0378 ×3

== ENCOUNTER 2023-06-17 21:02 | Emergency (ER) | payer BC, OTHER ==
--- OUTSIDE RECORDS SUMMARY | 2023-06-17 21:09 | XMS REPORT | Continuity of Care Document ---
:1995 Author Organization [facility] t Address [address] [facility]. [address] [place] [address] Care Team Providers Name Role Phone Alena Burrows Primary Care Physician [phone] [email or web address] Attending Clinician Unavailable ALENA GIBSON Attending Clinician Unavailable EVELIA POOLE Attending Clinician Unavailable Alena Burrows Attending Clinician [phone] UNKNOWN, ATTENDING Attending Clinician Unavailable FILIPPO AL Attending Clinician Unavailable Filippo Nino Attending Clinician Unknown, Attending Attending Clinician Unavailable VICENTA AMADOR Attending Clinician Unavailable Vicenta Amador MD Attending Clinician [phone] Tanisha Navarro MD Attending Clinician [phone] Usman Shultz MD Attending Clinician Jeannette Granado MD Attending Clinician 1, [facility] Attending Clinician Unavailable Doctor Unassigned, [place] Attending Clinician Unavailable Ultrasound, [facility] Attending Clinician Unavailable Bobo Orr MD Attending Clinician BOBO ORR Attending Clinician Unavailable BOBO ORR Attending Clinician Unavailable NOMAN MARC Attending Clinician Unavailable Lab, [facility] Attending Clinician Unavailable Noman Marc MD Attending Clinician [phone] 1, [facility] Room Attending Clinician Unavailable Donna Lyon Attending Clinician Lab, [facility] Attending Clinician Unavailable [email or web address] Admitting Clinician Unavailable TANISHA NAVARRO Admitting Clinician Unavailable Payers Payer Name Policy Type Policy Number Effective Date Expiration Date Lola PEREZ [id number] FROM [facility] [id number] 2021 00:00:00 Problems Condition Condition Condition Status Onset Resolution Last Treating Co mments Source Name Details Category Date Date Treatment Clinician Date Other Other Disease Active 2021-07 Univers general general -11 [place] of counseling [place] and advice and advice 00 Ne dical for [facility] contracept contracept dominique dominique management management Urinary Urinary Disease Active 2021-07 Univers incontinen incontinen 11 it y of ce ce 00:00: [facility] 39 weeks 39 weeks Disease Active Unive rs gestation gestation 04-23 ity of of of 00:00: [place] [facility] Full-term Full-term Disease Active Uni vers premature premature 04-23 ity of rupture of rupture [place] 00:[place] membranes membranes 00 [facility] with onset with onset Br anch of labor of labor within 24 within 24 hours of hours of rupture rupture Thrombocyt Thrombocyt Disease Active U nivers openia openia 9 it[place] of affecting affecting 00:[place] [facility] Low-lying Low-lying Disease Active Overview: Univers placenta placenta 5-12 Formattin ity of 00:00: g of this 00 note Medical might be Branch different from the original. FU anatomy and placental location at 32 wk.- resolved Vaginal Vaginal Disease Active Univers bleeding bleeding 3-02 ity of in in 00:00: [place] 00 [facility] Routine Routine Disease Active Univers 2-02 [place] of follow[place]up [place] [facility] Supervisio Supervisio Disease Active U nivers n of n of 08-27 ity of high-risk high-risk 00:00[place] [facility] Allergies, Adverse Reactions, Alerts Allergy Allergy Status Severity Reaction(s) Onset Inactive Treating Comm ents Source Name Type Date Date Clinician NO KNOWN Drug Active Univers ALLERGIE Class ity of S [facility] Social History Social Habit Start Date Stop Date Quantity Comments Source ASSERTION 2021-08-07 University of 00:00:00 [facility] Sexual orientation Univer sity [facility] Exposure to 2022-05-26 2022-06-05 Not sure University SARS-CoV-2 (event) 00:00:00 09:03:00 [facility] History of Social 2022-06-05 2022-06-05 Univers ity of function 00:00:00 00:00:00 [facility] Alcohol intake 2021-12-17 2021-12-17 Current University of 00:00:00 00:00:00 non-drinker of [facility] alcohol [place] (finding) Tobacco use and 2021-08-27 2021-08-27 Smokeless Universit y of exposure 00:00:00 00:00:00 tobacco non-user [facility] Tobacco Comment 2013-03-08 2013-03-08 Denies smoking Unive rsity of 00:00:00 00:00:[address] [facility] Sex Assigned At [birth year] Universit y of 00:00:00 00:00:00 [facility] Smoking Status Start Date Stop Date Source Never smoked tobacco [facility] Medications Ordered Filled Start Stop Current Ordering Indication Dosage Frequency Signature Comments Components Source Medication Medication Date Date Medication? Clinician (SIG) Name Name ondansetron 2021-07 Yes [id number] 4mg Take 1 Univers 4 mg 0-28 tablet by ity of disintegrat 00:00: mouth [place] ing tablet 00 every 12 Medic al (twelve) Branch hours as needed for Nausea and Vomiting (N/V). ondansetron 2021-07 Yes [id number] 4mg Take 1 Univers 4 mg 0-28 tablet by ity of disintegrat 00:00: mouth [place] ing tablet 00 every 12 Medic al (twelve) Branch hours as needed for Nausea and Vomiting (N/V). ondansetron 2021-07 Yes [id number] 4mg Take 1 Univers 4 mg 0-28 tablet by ity of disintegrat 00:00: mouth [place] ing tablet 00 every 12 Medic al (twelve) Branch hours as needed for Nausea and Vomiting (N/V). ondansetron 2021-07 Yes [id number] 4mg Take 1 Univers 4 mg 0-28 tablet by ity of disintegrat 00:00: mouth [place] ing tablet 00 every 12 Medic al (twelve) Branch hours as needed for Nausea and Vomiting (N/V). cefdinir 2021-07- No [id number] 300mg Take 1 Univers 300 mg 0-28 - capsule by ity of capsule 00:00: 04:59 mouth [place] 00 :00 every 12 Medical (twelve) Branch hours for 7 days. phenazopyri 2021-07- No [id number] 200mg Take 2 Univers dine 0-28 - tablets by ity of (PYRIDIUM) 00:00: 04:59 mouth in [place] 100 mg 00 :00 the Medical tablet morning Branch and 2 tablets at noon and 2 tablets in the evening. Do all this for 3 days. magnesium 2021-07 Yes 30mL 30 mL, Univer s hydroxide 0-01 Oral, ity of (MILK OF 14:00: DAILY, [place] MAGNESIA) 00 First dose Medi marisa 400 mg/5 mL on Sat Branch suspension 04/25/22 at 30 mL 0900, Until Discontinu ed, Routine docusate Yes 200mg 200 mg, Unive rs (COLACE) 04-24 Oral, ity of capsule 200 14:00: DAILY[place] mg 00 First dose Medical (after Branch last modificati on) on 04/24/22 at 0900, Until Discontinu ed, Routine polyethylen Yes 17g 17 g, Unive rs e glycol 04-24 Oral, ity of 3350 powder 14:00: DAILY, [place] 17 g 00 First dose Medical on Fri Branch 04/24/22 at 0900, Until Discontinu ed, Routine simethicone Yes 160mg 160 mg, Un jessica (GAS RELIEF 04-24 Oral, ity of (SIMETHICON 06:00: PC+HS, [place] E)) 00 First dose Medical chewable (after Branch tablet 160 last mg modificati on) on Wed04/24/22 at 0100, Until Discontinu ed, Routine rho(D) 2021-0 Yes 300ug 300 mcg, Univer s immune 04-24 Intramuscu ity of globulin 04:04: lar, ONCE, [place] as (RHOGAM) 31 For 1 Medical syringe 300 dose, Branch mcg Conditiona l, Routine HYDROcodone 0 Yes 1{tbl} 1 tablet, Univers -acetaminop 04-24 Oral, ity of hen (NORCO 04:04: Q6HPRN, [place] 5) 5-325 mg 27 Starting Medi marisa tablet 1 on [facility] Branch tablet 04/23/22 at 2304, Until Discontinu ed, Routine, Pain (scale 7-10) ibuprofen 0 Yes 600mg 600 mg, Univ ers (IBU) 04-24 Oral, ity of tablet 600 04:04: Q6HPRN, [place] mg 27 Starting Medical on [place] Branch 04/23/22 at 2304, Until Discontinu ed, Routine, Pain (scale 4-6) acetaminoph 0 Yes 650mg 650 mg, Un jessica en 04-24 Oral, ity of (TYLENOL) 04:04: Q6HPRN, [place] tablet 650 27 Starting Medic al mg on [place] Branch 04/23/22 at 2304, Until Discontinu ed, Routine, Pain (scale 1-3) diphenhydrA 0 Yes 25mg 25 mg, Univ ers MINE 04-24 Oral, ity of (BENADRYL) 04:04: Q6HPRN, [place] tablet 25 27 Starting Medica l mg on [place] Branch 04/23/22 at 2304, Until Discontinu ed, Routine, Sleep, Itching ondansetron 0 Yes 4mg 4 mg, Slow Univers (ZOFRAN 04-24 IV Push, ity of (PF)) 04:04: Q8HPRN, [place] injection 4 27 Starting Medi marisa mg on [place] Branch 04/23/22 at 2304, Until Discontinu ed, Routine, Nausea and Vomiting (N/V) benzocaine- Yes Topical, Un jessica menthol 04-24 PRN, ity of (DERMOPLAST 04:04: Starting [place] ) 20-0.5 % 27 on [place]na Medical topical 04/23/22 at Branch spray 2304, Until Discontinu ed, Routine, Perineum discomfort docusate 2021- No 200mg 200 mg, Univ ers (COLACE) 04-24 Oral, ity of capsule 200 04:04: 05:50 QDAILYPRN, [place] mg 27 :18 Starting Medical on [place] Branch 04/23/22 at 2304, Until 04/24/22 at 0050, Routine, Constipati on ePHEDrine 2021- No Slow IV Univ ers 25 mg/5 mL 04-24 Push, ONCE it y of (5 mg/mL) 02:10: 02:13 INTRA [place] syringe 00 :44 PROCEDURE, Medica l Starting Branch on Rhianna 04/23/22 at 2110, Until [place] 04/23/22 at 2112, Routine, Intra-op PHENYLephri 2021- No Slow IV Un jessica ne 1000 04-24 Push, ONCE ity o f mcg/10 mL 02:10: 02:13 INTRA [place] in 0.9% 00 :35 PROCEDURE, Medica l NaCl Starting Branch syringe on Rhianna 04/23/22 at 2110, Until [place] 04/23/22 at 2113, Routine, Intra-op ePHEDrine 2021- No Slow IV Univ ers 25 mg/5 mL 04-24 Push, ONCE it y of (5 mg/mL) 02:10: 02:13 INTRA [place] syringe 00 :44 PROCEDURE, Medica l Starting Branch on [place] 04/23/22 at 2110, Until [place] 04/23/22 at 3, Routine, Intra-op PHENYLephri 2021- No Slow IV Un jessica ne 1000 04-24 Push, ONCE ity o f mcg/10 mL 02:10: 02:13 INTRA [place] in 0.9% 00 :35 PROCEDURE, Medica l NaCl Starting Branch syringe on [place] 04/23/22 at 2110, Until [place] 04/23/22 at 2112, Routine, Intra-op ePHEDrine 2021- No Slow IV Univ ers 25 mg/5 mL 04-24 Push, ONCE it y of (5 mg/mL) 02:10: 02:13 INTRA [place] syringe 00 :44 PROCEDURE, Medica l Starting Branch on Rh[place]na 04/23/22 at 2110, Until [place] 04/23/22 at 2112, Routine, Intra-op PHENYLephri 2021- No Slow IV Un jessica ne 1000 04-24 Push, ONCE ity o f mcg/10 mL 02:10: 02:13 INTRA [place] in 0.9% 00 :35 PROCEDURE, Medica l NaCl Starting Branch syringe on [place] 04/23/22 at 2110, Until [place] 04/23/22 at 2112, Routine, Intra-op cefOXitin 2021- No 2g 2 g, Univers (MEFOXIN) 2 04-24 Intravenou i ty of g in water 02:05: 02:21 s, ONCE, 1 [place] for 00 :00 dose, On Medical injection, [facility] Branch sterile 20 04/23/22 at mL SIVP 2114, syringe GAGAN
Re ason for Anti-Infec tive: Surgical Prophylaxi s
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
Duration of therapy: within 24 hours of surgery Yes [id number] 1{tbl} Take 1 Univers vitamin 9-30 tablet by ity of w/FA tablet 00:00: mouth in [place] 00 the Medical morning. Branch docusate Yes [id number] 200mg Take 2 U nivers 100 mg 9-30 capsules ity of capsule 00:00: by mouth 00 once daily Medical as needed Branch for Constipati on. ferrous Yes [id number] 325mg Take 1 Un jessica sulfate 325 9-30 tablet by ity of mg (65 mg 00:00: [place] iron) 00 the Medical tablet morning Branch and 1 tablet in the evening. ibuprofen Yes [id number] 600mg Take 1 Univers 600 mg 9-30 tablet by ity of tablet 00:00: mouth [place] 00 every 6 Medical (six) Branch hours as needed (Pain). Take with food or milk. 2021-0 Yes [id number] 1{tbl} Take 1 Univers vitamin 9-30 tablet by ity of w/FA tablet 00:00: mouth in [place] 00 the Medical morning. Branch docusate 2021-0 Yes [id number] 200mg Take 2 U nivers 100 mg 9-30 capsules ity of capsule 00:00: by mouth [place] 00 once daily Medical as needed Branch for Constipati on. ferrous 2021-0 Yes [id number] 325mg Take 1 Un jessica sulfate 325 9-30 tablet by ity of mg (65 mg 00:00: [place] iron) 00 the Medical tablet morning Branch and 1 tablet in the evening. ibuprofen 2021-0 Yes [id number] 600mg Take 1 Univers 600 mg 9-30 tablet by ity of tablet 00:00: mouth [place] 00 every 6 Medical (six) Branch hours as needed (Pain). Take with food or milk. 2021-0 Yes [id number] 1{tbl} Take 1 Univers vitamin 9-30 tablet by ity of w/FA tablet 00:00: mouth in [place] 00 the Medical morning. Branch docusate 2021-0 Yes [id number] 200mg Take 2 U nivers 100 mg 9-30 capsules ity of capsule 00:00: by mouth [place] 00 once daily Medical as needed Branch for Constipati on. ferrous 2021-0 Yes [id number] 325mg Take 1 Un jessica sulfate 325 9-30 tablet by ity of mg (65 mg 00:00: mouth [place] iron) 00 the Medical tablet morning Branch and 1 tablet in the evening. ibuprofen 2021-0 Yes [id number] 600mg Take 1 Univers 600 mg 9-30 tablet by ity of tablet 00:00: mouth [place] 00 every 6 Medical (six) Branch hours as needed (Pain). Take with food or milk. 2021-0 Yes [id number] 1{tbl} Take 1 Univers vitamin 9-30 tablet by ity of w/FA tablet 00:00: mouth in [place] 00 the Medical morning. Branch docusate 2021-0 Yes [id number] 200mg Take 2 U nivers 100 mg 9-30 capsules ity of capsule 00:00: by mouth [place] 00 once daily Medical as needed Branch for Constipati on. ferrous 2021-0 Yes [id number] 325mg Take 1 Un jess[place] sulfate 325 9-30 tablet by ity of mg (65 mg 00:00: mouth [place] iron) 00 the Medical tablet morning Branch and 1 tablet in the evening. ibuprofen 2021-0 Yes [id number] 600mg Take 1 Univers 600 mg 9-30 tablet by ity of tablet 00:00: mouth [place] 00 every 6 Medical (six) Branch hours as needed (Pain). Take with food or milk. 2021-0 Yes [id number] 1{tbl} Take 1 Univers vitamin 9-30 tablet by ity of w/FA tablet 00:00: mouth in [place] 00 the Medical morning. Branch docusate 2021-0 Yes [id number] 200mg Take 2 U nivers 100 mg 9-30 capsules ity of capsule 00:00: by mouth [place] 00 once daily Medical as needed Branch for Constipati on. ferrous 2021-0 Yes [id number] 325mg Take 1 Un jess[place] sulfate 325 9-30 tablet by ity of mg (65 mg 00:00: mouth [place] iron) 00 the Medical tablet morning Branch and 1 tablet in the evening. ibuprofen 2021-0 Yes [id number] 600mg Take 1 Univers 600 mg 9-30 tablet by ity of tablet 00:00: mouth [place] 00 every 6 Medical (six) Branch hours as needed (Pain). Take with food or milk. 2021-0 Yes [id number] 1{tbl} Take 1 Univers vitamin 9-30 tablet by ity of w/FA tablet 00:00: mouth in [place] 00 the Medical morning. Branch docusate 2021-0 Yes [id number] 200mg Take 2 U nivers 100 mg 9-30 capsules ity of capsule 00:00: by mouth [place] 00 once daily Medical as needed Branch for Constipati on. ferrous 2021-0 Yes [id number] 325mg Take 1 Un jess[place] sulfate 325 9-30 tablet by ity of mg (65 mg 00:00: mouth [place] iron) 00 the Medical tablet morning Branch and 1 tablet in the evening. ibuprofen 2021-0 Yes [id number] 600mg Take 1 Univers 600 mg 9-30 tablet by ity of tablet 00:00: mouth [place] 00 every 6 Medical (six) Branch hours as needed (Pain). Take with food or milk. 2021-0 Yes [id number] 1{tbl} Take 1 Univers vitamin 9-30 tablet by ity of w/FA tablet 00:00: mouth in [place] 00 the Medical morning. Branch docusate 2021-0 Yes [id number] 200mg Take 2 U nivers 100 mg 9-30 capsules ity of capsule 00:00: by mouth [place] 00 once daily Medical as needed Branch for Constipati on. ferrous 2021-0 Yes [id number] 325mg Take 1 Un jess[place] sulfate 325 9-30 tablet by ity of mg (65 mg 00:00: mouth [place] iron) 00 the Medical tablet morning Branch and 1 tablet in the evening. ibuprofen 2021-0 Yes [id number] 600mg Take 1 Univers 600 mg 9-30 tablet by ity of tablet 00:00: mouth [place] 00 every 6 Medical (six) Branch hours as needed (Pain). Take with food or milk. 2021-0 Yes [id number] 1{tbl} Take 1 Univers vitamin 9-30 tablet by ity of w/FA tablet 00:00: mouth in [place] 00 the Medical morning. Branch docusate 2021-0 Yes [id number] 200mg Take 2 U nivers 100 mg 9-30 capsules ity of capsule 00:00: by mouth [place] 00 once daily Medical as needed Branch for Constipati on. ferrous 2021-0 Yes [id number] 325mg Take 1 Un jess[place] sulfate 325 9-30 tablet by ity of mg (65 mg 00:00: mouth [place] iron) 00 the Medical tablet morning Branch and 1 tablet in the evening. ibuprofen 2021-0 Yes [id number] 600mg Take 1 Univers 600 mg 9-30 tablet by ity of tablet 00:00: mouth [place] 00 every 6 Medical (six) Branch hours as needed (Pain). Take with food or milk. 2021-0 Yes [id number] 1{tbl} Take 1 Univers vitamin 9-30 tablet by ity of w/FA tablet 00:00: mouth in [place] 00 the Medical morning. Branch docusate 2021-0 Yes [id number] 200mg Take 2 U nivers 100 mg 9-30 capsules ity of capsule 00:00: by mouth [place] 00 once daily Medical as needed Branch for Constipati on. ferrous 2021-0 Yes [id number] 325mg Take 1 Un [place]ess[place] sulfate 325 9-30 tablet by ity of mg (65 mg 00:00: mouth [place] iron) 00 the Medical tablet morning Branch and 1 tablet in the evening. ibuprofen 2021-0 Yes [id number] 600mg Take 1 Univers 600 mg 9-30 tablet by ity of tablet 00:00: mouth [place] 00 every 6 Medical (six) Branch hours as needed (Pain). Take with food or milk. 2021-0 Yes [id number] 1{tbl} Take 1 Univers vitamin 9-30 tablet by ity of w/FA tablet 00:00: mouth in [place] 00 the Medical morning. Branch docusate 2021-0 Yes [id number] 200mg Take 2 U nivers 100 mg 9-30 capsules ity of capsule 00:00: by mouth [place] 00 once daily Medical as needed Branch for Constipati on. ferrous 2021-0 Yes [id number] 325mg Take 1 Un [place]ess[place] sulfate 325 9-30 tablet by ity of mg (65 mg 00:00: mouth [place] iron) 00 the Medical tablet morning Branch and 1 tablet in the evening. ibuprofen 2021-0 Yes [id number] 600mg Take 1 Univers 600 mg 9-30 tablet by ity of tablet 00:00: mouth [place] 00 every 6 Medical (six) Branch hours as needed (Pain). Take with food or milk. 2021-0 Yes [id number] 1{tbl} Take 1 Univers vitamin 9-30 tablet by ity of w/FA tablet 00:00: mouth in [place] 00 the Medical morning. Branch docusate 2021-0 Yes [id number] 200mg Take 2 U nivers 100 mg 9-30 capsules ity of capsule 00:00: by mouth [place] 00 once daily Medical as needed Branch for Constipati on. ferrous 2021-0 Yes [id number] 325mg Take 1 Un [place]ess[place] sulfate 325 9-30 tablet by ity of mg (65 mg 00:00: mouth [place] iron) 00 the Medical tablet morning Branch and 1 tablet in the evening. ibuprofen 2021-0 Yes [id number] 600mg Take 1 Univers 600 mg 9-30 tablet by ity of tablet 00:00: mouth [place] 00 every 6 Medical (six) Branch hours as needed (Pain). Take with food or milk. 2021-0 Yes [id number] 1{tbl} Take 1 Univers vitamin 9-30 tablet by ity of w/FA tablet 00:00: mouth in [place] 00 the Medical morning. Branch docusate Yes [id number] 200mg Take 2 U nivers 100 mg 9-30 capsules ity of capsule 00:00: by mouth [place] 00 once daily Medical as needed Branch for Constipati on. ferrous Yes [id number] 325mg Take 1 Un [place]ess[place] sulfate 325 9-30 tablet by ity of mg (65 mg 00:00: mouth [place] iron) 00 the Medical tablet morning Branch and 1 tablet in the evening. ibuprofen Yes [id number] 600mg Take 1 Univers 600 mg 9-30 tablet by ity of tablet 00:00: mouth [place] 00 every 6 Medical (six) Branch hours as needed (Pain). Take with food or milk. lactated 2021- No 500mL at 999 Unive rs ringers IV 04-23 mL/hr, 500 it y of infusion 18:15: 17:25 mL, IV [place] 500 mL 00 :00 Infusion, Medical ONCE, 1 Branch dose, On [place] 04/23/22 at 1315, Routine ropivacaine 2021- No Epidural, Univers 0.2 % 04-23 CONTINUOUS ity of ([place]OPIN 18:01: [place] ([place] 00 :52 Starting Medical epidural on [place] Branch infusion 04/23/22 at 1301, Until Discontinu ed, Routine, Intra-op ropivacaine 2021- No Epidural, Univers 0.2 % 04-23 CONTINUOUS ity of ([place]OPIN 18:01: [place] ([place] 00 :52 Starting Medical epidural on [place] Branch infusion 04/23/22 at 1301, Until Discontinu ed, Routine, Intra-op ropivacaine 2021- No Epidural, Univers 0.2 % 04-23 CONTINUOUS ity of (N[place]OPIN 18:01: [place] ()) 00 :52 Starting Medical epidural on [place] Branch infusion 04/23/22 at 1301, Until Discontinu ed, Routine, Intra-op lidocaine-e 2021- No Intraderma Univers pinephrine 04-23 l, ONCE ity o f (XYLOCAINE 17:59: 02:01 INTRA [place] W/EPINEPHRI 00 :52 PROCEDURE, Me dical NE) 1.5 Starting Branch %-1:200,000 on [place] injection 04/23/22 at 1259, Until Discontinu ed, Routine, Intra-op lidocaine-e 2021- No Intraderma Univers pinephrine 04-23 l, ONCE ity o f (XYLOCAINE 17:59: 02:01 INTRA [place] W/EPINEPHRI 00 :52 PROCEDURE, Me dical NE) 1.5 Starting Branch %-1:200,000 on [place] injection 04/23/22 at 1259, Until Discontinu ed, Routine, Intra-op lidocaine-e 2021- No Intraderma Univers pinephrine 04-23 l, ONCE ity o f (XYLOCAINE 17:59: 02:01 INTRA [place] W/EPINEPHRI 00 :52 PROCEDURE, Ne dical NE) 1.5 Starting Branch %-1:200,000 on [place] injection 04/23/22 at 1259, Until Discontinu ed, Routine, Intra-op sodium 2021- No 30mL 30 mL, Univers citrate-cit 04-23 Oral, ity of jaspal acid 17:23: 17:44 PRE-PROCED [place] (BICITRA) 04 :00 URE ONCE, Medic al 500-334 1 dose, Branch mg/5 mL Starting solution 30 on Rhianna mL 04/23/22 at 1223, Until [place] 04/23/22 at 1244, Routine, Surgery/Pr ocedure oxytocin 2021- No 2mU/min at 2-40 Un jessica (PITOCIN) 04-23 mL/hr, IV ity of 30 units in 15:42: 04:04 Infusion, [place] NS 500 mL 49 :30 TITRATE, Medica l IV infusion Starting Bran ch on Rhianna 04/23/22 at 1042, Until [place] 04/23/22 at 2304, GAGAN proMETHazin 2021- No 25mg 25 mg, IV Univers e 04-23 Piggyback, ity of (PHENERGAN) 15:15: 16:00 at 200 [place] as 25 mg in NS 00 :00 mL/hr Medical 50 mL IV Administer Branc h piggyback over 15 (CNR) Minutes, ONCE, 1 dose, On [place] 04/23/22 at 1030, GAGAN butorphanol 2021- No 1mg 1 mg, Univ ers (STADOL) 04-23 Intravenou ity of injection 1 15:15: 15:46 s, ONCE, 1 [place] mg 00 :00 dose, On Medical [place] Branch 04/23/22 at 1030, GAGAN D5W-LR IV 2021- No 1000mL at 1-125 U nivers infusion 04-23 0930 mL/hr, IV ity o f 1,000 mL 14:15: 04:04 Infusion, [place] as 25 :30 TITRATE, Medical Starting Branch on Rhianna 04/23/22 at 0915, Until [place] 04/23/22 at 2304, Routine Yes [id number] 1{tbl} Take 1 U nivers multivitami 2-02 tablet by ity of n ( 00:00: mouth [place] VITAMIN) 00 daily. Medical tablet Branch Yes [id number] 1{tbl} Take 1 U nivers multivitami 2-02 tablet by ity of n ( 00:00: mouth [place] VITAMIN) 00 daily. Medical tablet Branch Yes [id number] 1{tbl} Take 1 U nivers multivitami 2-02 tablet by ity of n ( 00:00: mouth [place] VITAMIN) 00 daily. Medical tablet Branch Yes [id number] 1{tbl} Take 1 U nivers multivitami 2-02 tablet by ity of n ( 00:00: mouth [place] VITAMIN) 00 daily. Medical tablet Branch Yes [id number] 1{tbl} Take 1 U nivers multivitami 2-02 tablet by ity of n ( 00:00: mouth [place] VITAMIN) 00 daily. Medical tablet Branch Yes [id number] 1{tbl} Take 1 U nivers multivitami 2-02 tablet by ity of n ( 00:00: mouth [place] VITAMIN) 00 daily. Medical tablet Branch Yes [id number] 1{tbl} Take 1 U nivers multivitami 2-02 tablet by ity of n ( 00:00: mouth [place] VITAMIN) 00 daily. Medical tablet Branch 2021- No [id number] 1{tbl} Take 1 Univers multivitami 2-02 10- tablet by it y of n ( 00:00: 00:00 [place] VITAM[place]) 00 :00 daily. Medical tablet Branch 2021- No [id number] 1{tbl} Take 1 Univers multivitami 2-02 10- tablet by it y of n ( 00:00: 00:00 [place] VITAMIN) 00 :00 daily. Medical tablet Branch Immunizations Ordered Filled Date Status Comments Source Immunization Name Immunization Name [facility] 2022-02-05 Completed University of 00:00:00 [facility] TDAP 2022-02-05 Completed University of 00:00:00 [facility] TDAP 2022-02-05 Completed University of 00:00:00 [facility] TDAP 2022-02-05 Completed University of 00:00:00 [facility] TDAP 2022-02-05 Completed University of 00:00:00 [facility] TDAP 2022-02-05 Completed University of 00:00:00 [facility] TDAP 2022-02-05 Completed University of 00:00:00 [facility] TDAP 2022-02-05 Completed University of 00:00:00 [facility] TDAP 2022-02-05 Completed [facility] [facility] 2022-02-05 Completed [facility] 00[facility]00 [facility] TDAP 2022-02-05 Completed [facility] 00:[facility]00 [facility] TDAP 2022-02-05 Completed [facility] 00[facility]:00 [facility] TDAP 2022-02-05 Completed [facility] 00[facility]00:00 [facility] TDAP 2022-02-05 Completed [facility] 00:00:00 [facility] TDAP 2022-02-05 Completed [facility] 00[facility]00:00 [facility] TDAP 2022-02-05 Completed [facility] 00[facility]00:00 [facility] TDAP 2022-02-05 Completed [facility] 00[facility]00:00 [facility] TDAP 2022-02-05 Completed [facility] 00:00:00 [facility] TDAP 2022-02-05 Completed [facility] 00:00:00 [facility] SARS-COV-2 COVID-19 2021-02-19 Completed [facility] PFIZER VACCINE 00:00:00 [facility] SARS-COV-2 COVID-19 2021-02-19 Completed [facility] PFIZER VACCINE 00:00:00 [facility] SARS-COV-2 COVID-19 2021-02-19 Completed [facility] PFIZER VACCINE 00:00:00 [facility] SARS-COV-2 COVID-19 2021-02-19 Completed [facility] PFIZER VACCINE 00:00:00 [facility] SARS-COV-2 COVID-19 2021-02-19 Completed [facility] PFIZER VACCINE 00:00:00 [facility] SARS-COV-2 COVID-19 2021-02-19 Completed [facility] PFIZER VACCINE 00:00:00 [facility] SARS-COV-2 COVID-19 2021-02-19 Completed [facility] PFIZER VACCINE 00:00:00 [facility] SARS-COV-2 COVID-19 2021-02-19 Completed [facility] PFIZER VACCINE 00:00:00 [facility] SARS-COV-2 COVID-19 2021-02-19 Completed [facility] PFIZER VACCINE 00:00:00 [facility] SARS-COV-2 COVID-19 2021-02-19 Completed [facility] PFIZER VACCINE 00:00:00 [facility] SARS-COV-2 COVID-19 2021-02-19 Completed [facility] PFIZER VACCINE 00:00:00 [facility] SARS-COV-2 COVID-19 2021-02-19 Completed [facility] PFIZER VACCINE 00:00:00 [facility] SARS-COV-2 COVID-19 2021-02-19 Completed [facility] PFIZER VACCINE 00:00:00 [facility] SARS-COV-2 COVID-19 2021-02-19 Completed [facility] PFIZER VACCINE 00:00:00 [facility] SARS-COV-2 COVID-19 2021-02-19 Completed [facility] PFIZER VACCINE 00:00:00 [facility] SARS-COV-2 COVID-19 2021-02-19 Completed [facility] PFIZER VACCINE 00:00:00 [facility] SARS-COV-2 COVID-19 2021-02-19 Completed [facility] PFIZER VACCINE 00:00:00 [facility] SARS-COV-2 COVID-19 2021-02-19 Completed [facility] PFIZER VACCINE 00:00:00 [facility] SARS-COV-2 COVID-19 2021-02-19 Completed [facility] PFIZER VACCINE 00:00:00 [facility] SARS-COV-2 COVID-19 2021-01-29 Completed [facility] PFIZER VACCINE 00:00:00 [facility] SARS-COV-2 COVID-19 2021-01-29 Completed [facility] PFIZER VACCINE 00:00:00 [facility] SARS-COV-2 COVID-19 2021-01-29 Completed [facility] PFIZER VACCINE 00:00:00 [facility] SARS-COV-2 COVID-19 2021-01-29 Completed [facility] PFIZER VACCINE 00:00:00 [facility] SARS-COV-2 COVID-19 2021-01-29 Completed [facility] PFIZER VACCINE 00:00:00 [facility] SARS-COV-2 COVID-19 2021-01-29 Completed [facility] PFIZER VACCINE 00:00:00 [facility] SARS-COV-2 COVID-19 2021-01-29 Completed [facility] PFIZER VACCINE 00:00:00 [facility] SARS-COV-2 COVID-19 2021-01-29 Completed [facility] PFIZER VACCINE 00:00:00 [facility] SARS-COV-2 COVID-19 2021-01-29 Completed [facility] PFIZER VACCINE 00:00:00 [facility] SARS-COV-2 COVID-19 2021-01-29 Completed [facility] PFIZER VACCINE 00:00:00 [facility] SARS-COV-2 COVID-19 2021-01-29 Completed [facility] PFIZER VACCINE 00:00:00 [facility] SARS-COV-2 COVID-19 2021-01-29 Completed [facility] PFIZER VACCINE 00:00:00 [facility] SARS-COV-2 COVID-19 2021-01-29 Completed [facility] PFIZER VACCINE 00:00:00 [facility] SARS-COV-2 COVID-19 2021-01-29 Completed [facility] PFIZER VACCINE 00:00:00 [facility] SARS-COV-2 COVID-19 2021-01-29 Completed [facility] PFIZER VACCINE 00:00:00 [facility] SARS-COV-2 COVID-19 2021-01-29 Completed [facility] PFIZER VACCINE 00:00:00 [facility] SARS-COV-2 COVID-19 2021-01-29 Completed [facility] PFIZER VACCINE 00:00:00 [facility] SARS-COV-2 COVID-19 2021-01-29 Completed [facility] PFIZER VACCINE 00:00:00 [facility] SARS-COV-2 COVID-19 2021-01-29 Completed [facility] PFIZER VACCINE 00:00:00 [facility] Influenza Virus 2010-08-22 Completed [facility] Vaccine - Whole 00:00:00 [facility] Influenza Virus 2010-08-22 Completed [facility] of Vaccine - Whole 00:00:00 [facility] Influenza Virus 2010-08-22 Completed [facility] of Vaccine - Whole 00:00:00 [facility] Influenza Virus 2010-08-22 Completed [facility] of Vaccine - Whole 00:00:00 [facility] Influenza Virus 2010-08-22 Completed [facility] of Vaccine - Whole 00:00:00 [facility] H1n1 Vaccine 2009-06-25 Completed [facility] f 00:00:00 [facility] H1n1 Vaccine 2009-06-25 Completed [facility] f 00:00:00 [facility] H1n1 Vaccine 2009-06-25 Completed [facility] f 00:00:00 [facility] H1n1 Vaccine 2009-06-25 Completed [facility] f 00:00:00 [facility] H1n1 Vaccine 2009-06-25 Completed [facility] 00:00:00 [facility] H1n1 Vaccine 2009-06-25 Completed [facility] f 00:00:00 [facility] H1n1 Vaccine 2009-06-25 Completed [facility] 00:00:00 [facility] H1n1 Vaccine 2009-06-25 Completed [facility] 00:00:00 [facility] H1n1 Vaccine 2009-06-25 Completed [facility] 00:00:00 [facility] H1n1 Vaccine 2009-06-25 Completed [facility] 00:00:00 [facility] H1n1 Vaccine 2009-06-25 Completed [facility] 00:00:00 [facility] H1n1 Vaccine 2009-06-25 Completed [facility] 00:00:00 [facility] H1n1 Vaccine 2009-06-25 Completed [facility] 00:00:00 [facility] H1n1 Vaccine 2009-06-25 Completed [facility] 00:00:00 [facility] H1n1 Vaccine 2009-06-25 Completed [facility] 00:00:00 [facility] H1n1 Vaccine 2009-06-25 Completed [facility] f 00:00:00 [facility] H1n1 Vaccine 2009-06-25 Completed [facility] 00:00:00 [facility] H1n1 Vaccine 2009-06-25 Completed [facility] 00:00:00 [facility] H1n1 Vaccine 2009-06-25 Completed [facility] 00:00:00 [facility] Meningococcal 2009-01-31 Completed [facility] of Vaccine 00:00:00 [facility] TDAP 2009-01-31 Completed [facility] 00:00:00 [facility] Meningococcal 2009-01-31 Completed [facility] Vaccine 00:00:00 [facility] TDAP 2009-01-31 Completed [facility] 00:00:00 [facility] Meningococcal 2009-01-31 Completed [facility] of Vaccine 00:00:00 [facility] TDAP 2009-01-31 Completed [facility] 00:00:00 [facility] Meningococcal 2009-01-31 Completed [facility] Vaccine 00:00:00 [facility] TDAP 2009-01-31 Completed [facility] 00:00:00 [facility] Meningococcal 2009-01-31 Completed [facility] Vaccine 00:00:00 [facility] TDAP 2009-01-31 Completed [facility] 00:00:00 [facility] Meningococcal 2009-01-31 Completed [facility] Vaccine 00:00:00 [facility] TDAP 2009-01-31 Completed [facility] 00:00:00 [facility] Meningococcal 2009-01-31 Completed [facility] Vaccine 00:00:00 [facility] TDAP 2009-01-31 Completed [facility] 00:00:00 [facility] Meningococcal 2009-01-31 Completed [facility] Vaccine 00:00:00 [facility] TDAP 2009-01-31 Completed [facility] 00:00:00 [facility] Meningococcal 2009-01-31 Completed [facility] Vaccine 00:00:00 [facility] TDAP 2009-01-31 Completed [facility] 00:00:00 [facility] Meningococcal 2009-01-31 Completed [facility] Vaccine 00:00:00 [facility] TDAP 2009-01-31 Completed [facility] 00:00:00 [facility] Meningococcal 2009-01-31 Completed [facility] Vaccine 00:00:00 [facility] TDAP 2009-01-31 Completed [facility] 00:00:00 [facility] Meningococcal 2009-01-31 Completed [facility] Vaccine 00:00:00 [facility] TDAP 2009-01-31 Completed [facility] 00:00:00 [facility] Meningococcal 2009-01-31 Completed [facility] Vaccine 00:00:00 [facility] TDAP 2009-01-31 Completed [facility] 00:00:00 [facility] Meningococcal 2009-01-31 Completed [facility] of Vaccine 00:00:00 [facility] TDAP 2009-01-31 Completed [facility] 00:00:00 [facility] Meningococcal 2009-01-31 Completed [facility] Vaccine 00:00:00 [facility] TDAP 2009-01-31 Completed [facility] 00:00:00 [facility] Meningococcal 2009-01-31 Completed [facility] of Vaccine 00:00:00 [facility] TDAP 2009-01-31 Completed [facility] 00:00:00 [facility] Meningococcal 2009-01-31 Completed [facility] Vaccine 00:00:00 [facility] TDAP 2009-01-31 Completed [facility] 00:00:00 [facility] Meningococcal 2009-01-31 Completed [facility] Vaccine 00:00:00 [facility] TDAP 2009-01-31 Completed [facility] 00:00:00 [facility] Meningococcal 2009-01-31 Completed [facility] Vaccine 00:00:00 [facility] TDAP 2009-01-31 Completed [facility] 00:00:00 [facility] HPV 2008-08-07 Completed [facility] 00:00:00 [facility] HPV 2008-08-07 Completed [facility] 00:00:00 [facility] HPV 2008-08-07 Completed [facility] 00:00:00 [facility] HPV 2008-08-07 Completed [facility] 00:00:00 [facility] HPV 2008-08-07 Completed [facility] 00:00:00 [facility] HPV 2008-08-07 Completed [facility] 00:00:00 [facility] HPV 2008-08-07 Completed [facility] 00:00:00 [facility] HPV 2008-08-07 Completed [facility] 00:00:00 [facility] HPV 2008-08-07 Completed [facility] 00:00:00 [facility] HPV 2008-08-07 Completed [facility] 00:00:00 [facility] HPV 2008-08-07 Completed [facility] 00:00:00 [facility] HPV 2008-08-07 Completed [facility] 00:00:00 [facility] HPV 2008-08-07 Completed [facility] 00:00:00 [facility] HPV 2008-08-07 Completed [facility] 00:00:00 [facility] HPV 2008-08-07 Completed [facility] 00:00:00 [facility] HPV 2008-08-07 Completed [facility] 00:00:00 [facility] HPV 2008-08-07 Completed [facility] 00:00:00 [facility] HPV 2008-08-07 Completed [facility] 00:00:00 [facility] HPV 2008-08-07 Completed [facility] 00:00:00 [facility] HPV 2008-04-03 Completed [facility] 00:00:00 [facility] HPV 2008-04-03 Completed [facility] 00:00:00 [facility] HPV 2008-04-03 Completed [facility] 00:00:00 [facility] HPV 2008-04-03 Completed [facility] 00:00:00 [facility] HPV 2008-04-03 Completed [facility] 00:00:00 [facility] HPV 2008-04-03 Completed [facility] 00:00:00 [facility] HPV 2008-04-03 Completed [facility] 00:00:00 [facility] HPV 2008-04-03 Completed [facility] 00:00:00 [facility] HPV 2008-04-03 Completed [facility] 00:00:00 [facility] HPV 2008-04-03 Completed [facility] 00:00:00 [facility] HPV 2008-04-03 Completed [facility] 00:00:00 [facility] HPV 2008-04-03 Completed [facility] 00:00:00 [facility] HPV 2008-04-03 Completed [facility] 00:00:00 [facility] HPV 2008-04-03 Completed [facility] 00:00:00 [facility] HPV 2008-04-03 Completed [facility] 00:00:00 [facility] HPV 2008-04-03 Completed [facility] 00:00:00 [facility] HPV 2008-04-03 Completed [facility] 00:00:00 [facility] HPV 2008-04-03 Completed [facility] 00:00:00 [facility] HPV 2008-04-03 Completed [facility] 00:00:00 [facility] HPV 2008-01-31 Completed [facility] 00:00:00 [facility] HPV 2008-01-31 Completed [facility] 00:00:00 [facility] HPV 2008-01-31 Completed [facility] 00:00:00 [facility] HPV 2008-01-31 Completed [facility] 00:00:00 [facility] HPV 2008-01-31 Completed [facility] 00:00:00 [facility] HPV 2008-01-31 Completed [facility] 00:00:00 [facility] HPV 2008-01-31 Completed [facility] 00:00:00 [facility] HPV 2008-01-31 Completed [facility] 00:00:00 [facility] HPV 2008-01-31 Completed [facility] 00:00:00 [facility] HPV 2008-01-31 Completed [facility] 00:00:00 [facility] HPV 2008-01-31 Completed [facility] 00:00:00 [facility] HPV 2008-01-31 Completed [facility] 00:00:00 [facility] HPV 2008-01-31 Completed [facility] 00:00:00 [facility] HPV 2008-01-31 Completed [facility] 00:00:00 [facility] HPV 2008-01-31 Completed [facility] 00:00:00 [facility] HPV 2008-01-31 Completed [facility] 00:00:00 [facility] HPV 2008-01-31 Completed [facility] 00:00:00 [facility] HPV 2008-01-31 Completed [facility] 00:00:00 [facility] HPV 2008-01-31 Completed [facility] 00:00:00 [facility] HEPATITIS A 2006-08-30 Completed [facility] 00:00:00 [facility] Varicella 2006-08-30 Completed [facility] (varivax)(chicken 00:00:00 [facility] HEPATITIS A 2006-08-30 Completed [facility] 00:00:00 [facility] Varicella 2006-08-30 Completed [facility] (varivax)(chicken 00:00:00 [facility] HEPATITIS A 2006-08-30 Completed [facility] 00:00:00 [facility] Varicella 2006-08-30 Completed [facility] (varivax)(chicken 00:00:00 [facility] HEPATITIS A 2006-08-30 Completed [facility] 00:00:00 [facility] Varicella 2006-08-30 Completed [facility] (varivax)(chicken 00:00:00 [facility] HEPATITIS A 2006-08-30 Completed [facility] 00:00:00 [facility] Varicella 2006-08-30 Completed [facility] (varivax)(chicken 00:00:00 [facility] HEPATITIS A 2006-08-30 Completed [facility] 00:00:00 [facility] Varicella 2006-08-30 Completed [facility] (varivax)(chicken 00:00:00 [facility] HEPATITIS A 2006-08-30 Completed [facility] 00:00:00 [facility] Varicella 2006-08-30 Completed [facility] (varivax)(chicken 00:00:00 [facility] HEPATITIS A 2006-08-30 Completed [facility] 00:00:00 [facility] Varicella 2006-08-30 Completed [facility] (varivax)(chicken 00:00:00 [facility] HEPATITIS A 2006-08-30 Completed [facility] 00:00:00 [facility] Varicella 2006-08-30 Completed [facility] (varivax)(chicken 00:00:00 [facility] HEPATITIS A 2006-08-30 Completed [facility] 00:00:00 [facility] Varicella 2006-08-30 Completed [facility] (varivax)(chicken 00:00:00 [facility] HEPATITIS A 2006-08-30 Completed [facility] 00:00:00 [facility] Varicella 2006-08-30 Completed [facility] (varivax)(chicken 00:00:00 [facility] HEPATITIS A 2006-08-30 Completed [facility] 00:00:00 [facility] Varicella 2006-08-30 Completed [facility] (varivax)(chicken 00:00:00 [facility] HEPATITIS A 2006-08-30 Completed [facility] 00:00:00 [facility] Varicella 2006-08-30 Completed [facility] (varivax)(chicken 00:00:00 [facility] HEPATITIS A 2006-08-30 Completed [facility] 00:00:00 [facility] Varicella 2006-08-30 Completed [facility] (varivax)(chicken 00:00:00 [facility] HEPATITIS A 2006-08-30 Completed [facility] 00:00:00 [facility] Varicella 2006-08-30 Completed [facility] (varivax)(chicken 00:00:00 [facility] HEPATITIS A 2006-08-30 Completed [facility] 00:00:00 [facility] Varicella 2006-08-30 Completed [facility] (varivax)(chicken 00:00:00 [facility] HEPATITIS A 2006-08-30 Completed [facility] 00:00:00 [facility] Varicella 2006-08-30 Completed [facility] (varivax)(chicken 00:00:00 [facility] HEPATITIS A 2006-08-30 Completed [facility] 00:00:00 [facility] Varicella 2006-08-30 Completed [facility] (varivax)(chicken 00:00:00 [facility] HEPATITIS A 2006-08-30 Completed [facility] 00:00:00 [facility] Varicella 2006-08-30 Completed [facility] (varivax)(chicken 00:00:00 [facility] HEPATITIS A 2006-02-24 Completed [facility] 00:00:00 [facility] HEPATITIS A 2006-02-24 Completed [facility] 00:00:00 [facility] HEPATITIS A 2006-02-24 Completed [facility] 00:00:00 [facility] HEPATITIS A 2006-02-24 Completed [facility] 00:00:00 [facility] HEPATITIS A 2006-02-24 Completed [facility] 00:00:00 [facility] HEPATITIS A 2006-02-24 Completed [facility] 00:00:00 [facility] HEPATITIS A 2006-02-24 Completed [facility] 00:00:00 [facility] HEPATITIS A 2006-02-24 Completed [facility] 00:00:00 [facility] HEPATITIS A 2006-02-24 Completed [facility] 00:00:00 [facility] HEPATITIS A 2006-02-24 Completed [facility] 00:00:00 [facility] HEPATITIS A 2006-02-24 Completed [facility] 00:00:00 [facility] HEPATITIS A 2006-02-24 Completed [facility] 00:00:00 [facility] HEPATITIS A 2006-02-24 Completed [facility] 00:00:00 [facility] HEPATITIS A 2006-02-24 Completed [facility] 00:00:00 [facility] HEPATITIS A 2006-02-24 Completed [facility] 00:00:00 [facility] HEPATITIS A 2006-02-24 Completed [facility] 00:00:00 [facility] HEPATITIS A 2006-02-24 Completed [facility] 00:00:00 [facility] HEPATITIS A 2006-02-24 Completed [facility] 00:00:00 [facility] HEPATITIS A 2006-02-24 Completed [facility] 00:00:00 [facility] DTAP 2001-06-20 Completed [facility] 00:00:00 [facility] MMR 2001-06-20 Completed [facility] 00:00:00 [facility] Polio (IPV/OPV) 2001-06-20 Completed [facility] 00:00:00 [facility] DTAP 2001-06-20 Completed [facility] 00:00:00 [facility] MMR 2001-06-20 Completed [facility] 00:00:00 [facility] Polio (IPV/OPV) 2001-06-20 Completed [facility] 00:00:00 [facility] DTAP 2001-06-20 Completed [facility] 00:00:00 [facility] MMR 2001-06-20 Completed [facility] 00:00:00 [facility] Polio (IPV/OPV) 2001-06-20 Completed [facility] 00:00:00 [facility] DTAP 2001-06-20 Completed [facility] 00:00:00 [facility] MMR 2001-06-20 Completed [facility] 00:00:00 [facility] Polio (IPV/OPV) 2001-06-20 Completed [facility] 00:00:00 [facility] DTAP 2001-06-20 Completed [facility] 00:00:00 [facility] MMR 2001-06-20 Completed [facility] 00:00:00 [facility] Polio (IPV/OPV) 2001-06-20 Completed [facility] 00:00:00 [facility] DTAP 2001-06-20 Completed [facility] 00:00:00 [facility] MMR 2001-06-20 Completed [facility] 00:00:00 [facility] Polio (IPV/OPV) 2001-06-20 Completed [facility] 00:00:00 [facility] DTAP 2001-06-20 Completed [facility] 00:00:00 [facility] MMR 2001-06-20 Completed [facility] 00:00:00 [facility] Polio (IPV/OPV) 2001-06-20 Completed [facility] 00:00:00 [facility] DTAP 2001-06-20 Completed [facility] 00:00:00 [facility] MMR 2001-06-20 Completed [facility] 00:00:00 [facility] Polio (IPV/OPV) 2001-06-20 Completed [facility] 00:00:00 [facility] DTAP 2001-06-20 Completed [facility] 00:00:00 [facility] MMR 2001-06-20 Completed [facility] 00:00:00 [facility] Polio (IPV/OPV) 2001-06-20 Completed [facility] 00:00:00 [facility] DTAP 2001-06-20 Completed [facility] 00:00:00 [facility] MMR 2001-06-20 Completed [facility] 00:00:00 [facility] Polio (IPV/OPV) 2001-06-20 Completed [facility] 00:00:00 [facility] DTAP 2001-06-20 Completed [facility] 00:00:00 [facility] MMR 2001-06-20 Completed [facility] 00:00:00 [facility] Polio (IPV/OPV) 2001-06-20 Completed [facility] 00:00:00 [facility] DTAP 2001-06-20 Completed [facility] 00:00:00 [facility] MMR 2001-06-20 Completed [facility] 00:00:00 [facility] Polio (IPV/OPV) 2001-06-20 Completed [facility] 00:00:00 [facility] DTAP 2001-06-20 Completed [facility] 00:00:00 [facility] MMR 2001-06-20 Completed [facility] 00:00:00 [facility] Polio (IPV/OPV) 2001-06-20 Completed [facility]00 [facility] DTAP 2001-06-20 Completed [facility] 00:[facility]:00 [facility] MMR 2001-06-20 Completed [facility] 00:[facility]00 [facility] Polio (IPV/OPV) 2001-06-20 Completed [facility]00 [facility] DTAP 2001-06-20 Completed [facility] 00:00:00 [facility] MMR 2001-06-20 Completed [facility] 00:00:00 [facility] Polio (IPV/OPV) 2001-06-20 Completed [facility]00 [facility] DTAP 2001-06-20 Completed [facility] 00:00:00 [facility] MMR 2001-06-20 Completed [facility] 00:00:00 [facility] Polio (IPV/OPV) 2001-06-20 Completed [facility] 00:[facility]:00 [facility] DTAP 2001-06-20 Completed [facility] 00:00:00 [facility] MMR 2001-06-20 Completed [facility] 00:00:00 [facility] Polio (IPV/OPV) 2001-06-20 Completed [facility] 00:[facility]:00 [facility] DTAP 2001-06-20 Completed [facility] 00[facility]00:00 [facility] MMR 2001-06-20 Completed [facility] 00:00:00 [facility] Polio (IPV/OPV) 2001-06-20 Completed [facility] 00:[facility]:00 [facility] DTAP 2001-06-20 Completed [facility] 00[facility]00:00 [facility] MMR 2001-06-20 Completed [facility] 00:00:00 [facility] Polio (IPV/OPV) 2001-06-20 Completed [facility] 00:[facility]:00 [facility] DTAP 1999-01-01 Completed [facility] 00:00:00 [facility] Varicella 1999-01-01 Completed [facility] of (varivax)(chicken 00:00:00 [facility] pox) [facility] DTAP 1999-01-01 Completed [facility] 00:00:00 [facility] Varicella 1999-01-01 Completed [facility] (varivax)(chicken 00:00:00 [place] [facility] DTAP 1999-01-01 Completed [facility] 00:00:00 [facility] Varicella 1999-01-01 Completed [facility] (varivax)(chicken 00:00:00 [facility] edical pox) [facility] DTAP 1999-01-01 Completed [facility] 00:00:00 [facility] Varicella 1999-01-01 Completed [facility] (varivax)(chicken 00:00:00 [place] [facility] DTAP 1999-01-01 Completed [facility] 00:00:00 [facility] Varicella 1999-01-01 Completed [facility] (varivax)(chicken 00:00:00 [place] [facility] DTAP 1999-01-01 Completed [facility] 00:00:00 [facility] Varicella 1999-01-01 Completed [facility] (varivax)(chicken 00:00:00 [place] [facility] DTAP 1999-01-01 Completed [facility] 00:00:00 [facility] Varicella 1999-01-01 Completed [facility] (varivax)(chicken 00:00:00 [place] [facility] DTAP 1999-01-01 Completed [facility] 00:00:00 [facility] Varicella 1999-01-01 Completed [facility] (varivax)(chicken 00:00:00 [place] [facility]ox[facility] DTAP 1999-01-01 Completed [facility] 00:00:00 [facility] Varicella 1999-01-01 Completed [facility] (varivax)(chicken 00:00:00 [place] [facility] DTAP 1999-01-01 Completed [facility] 00:00:00 [facility] Varicella 1999-01-01 Completed [facility] (varivax)(chicken 00:00:00 [place] [facility] DTAP 1999-01-01 Completed [facility] 00:00:00 [facility] Varicella 1999-01-01 Completed [facility] (varivax)(chicken 00:00:00 [place] [facility] DTAP 1999-01-01 Completed [facility] 00:00:00 [facility] Varicella 1999-01-01 Completed [facility] (varivax)(chicken 00:00:00 [place] [facility] DTAP 1999-01-01 Completed [facility] 00:00:00 [facility] Varicella 1999-01-01 Completed [facility] (varivax)(chicken 00:00:00 [place] [facility] DTAP 1999-01-01 Completed [facility] 00:00:00 [facility] Varicella 1999-01-01 Completed [facility] (varivax)(chicken 00:00:00 [place] [facility] DTAP 1999-01-01 Completed [facility] 00:00:00 [facility] Varicella 1999-01-01 Completed [facility] (varivax)(chicken 00:00:00 [place] [facility] DTAP 1999-01-01 Completed [facility] 00:00:00 [facility] Varicella 1999-01-01 Completed [facility] (varivax)(chicken 00:00:00 [place] [facility] p[facility] DTAP 1999-01-01 Completed [facility] 00:00:00 [facility] Varicella 1999-01-01 Completed [facility] (varivax)(chicken 00:00:00 [place] [facility] pox[facility] DTAP 1999-01-01 Completed [facility] 00:00:00 [facility] Varicella 1999-01-01 Completed [facility] (varivax)(chicken 00:00:00 [place] [facility] p[facility] DTAP 1999-01-01 Completed [facility] 00:00:00 [facility] Varicella 1999-01-01 Completed [facility] (varivax)(chicken 00:00:00 [place] [facility] p[facility] MMR 1998 Completed [facility] 00:00:00 [facility] Polio (IPV/OPV) 1998 Completed [facility] 00:[facility]:00 [facility] HIB 4 Dose Schedule 1998 Completed [facility] 00:00:00 [facility] MMR 1998 Completed [facility] 00:00:00 [facility] Polio (IPV/OPV) 1998 Completed [facility] 00:00:00 [facility] HIB 4 Dose Schedule 1998 Completed [facility] 00:00:00 [facility] MMR 1998 Completed [facility] 00:00:00 [facility] Polio (IPV/OPV) 1998 Completed [facility] 00:00:00 [facility] HIB 4 Dose Schedule 1998 Completed [facility] 00:00:00 [facility] MMR 1998 Completed [facility] 00:00:00 [facility] Polio (IPV/OPV) 1998 Completed [facility] 00:00:00 [facility] HIB 4 Dose Schedule 1998 Completed [facility] 00:00:00 [facility] MMR 1998 Completed [facility] 00:00:00 [facility] Polio (IPV/OPV) 1998 Completed [facility] 00:00:00 [facility] HIB 4 Dose Schedule 1998 Completed [facility] 00:00:00 [facility] MMR 1998 Completed [facility] 00:00:00 [facility] Polio (IPV/OPV) 1998 Completed [facility] 00:00:00 [facility] HIB 4 Dose Schedule 1998 Completed [facility] 00:00:00 [facility] MMR 1998 Completed [facility] 00:00:00 [facility] Polio (IPV/OPV) 1998 Completed [facility] 00:00:00 [facility] HIB 4 Dose Schedule 1998 Completed [facility] 00:00:00 [facility] MMR 1998 Completed [facility] 00:00:00 [facility] Polio (IPV/OPV) 1998 Completed [facility] 00:00:00 [facility] HIB 4 Dose Schedule 1998 Completed [facility] 00:00:00 [facility] MMR 1998 Completed [facility] 00:00:00 [facility] Polio (IPV/OPV) 1998 Completed [facility] 00:00:00 [facility] HIB 4 Dose Schedule 1998 Completed [facility] 00:00:00 [facility] MMR 1998 Completed [facility] 00:00:00 [facility] Polio (IPV/OPV) 1998 Completed [facility] 00:00:00 [facility] HIB 4 Dose Schedule 1998 Completed [facility] 00:00:00 [facility] MMR 1998 Completed [facility] 00:00:00 [facility] Polio (IPV/OPV) 1998 Completed [facility] 00:00:00 [facility] HIB 4 Dose Schedule 1998 Completed [facility] 00:00:00 [facility] MMR 1998 Completed [facility] 00:00:00 [facility] Polio (IPV/OPV) 1998 Completed [facility] 00:00:00 [facility] HIB 4 Dose Schedule 1998 Completed [facility] 00:00:00 [facility] MMR 1998 Completed [facility] 00:00:00 [facility] Polio (IPV/OPV) 1998 Completed [facility] 00:00:00 [facility] HIB 4 Dose Schedule 1998 Completed [facility] 00:00:00 [facility] MMR 1998 Completed [facility] 00:00:00 [facility] Polio (IPV/OPV) 1998 Completed [facility] 00:00:00 [facility] HIB 4 Dose Schedule 1998 Completed [facility] 00:00:00 [facility] MMR 1998 Completed [facility] 00:00:00 [facility] Polio (IPV/OPV) 1998 Completed [facility] 00:00:00 [facility] HIB 4 Dose Schedule 1998 Completed [facility] 00:00:00 [facility] MMR 1998 Completed [facility] 00:00:00 [facility] Polio (IPV/OPV) 1998 Completed [facility] 00:00:00 [facility] HIB 4 Dose Schedule 1998 Completed [facility] 00:00:00 [facility] MMR 1998 Completed [facility] 00:00:00 [facility] Polio (IPV/OPV) 1998 Completed [facility] 00:00:00 [facility] HIB 4 Dose Schedule 1998 Completed [facility] 00:00:00 [facility] MMR 1998 Completed [facility] 00:00:00 [facility] Polio (IPV/OPV) 1998 Completed [facility] 00:00:00 [facility] HIB 4 Dose Schedule 1998 Completed [facility] 00:00:00 [facility] MMR 1998 Completed [facility] 00:00:00 [facility] Polio (IPV/OPV) 1998 Completed [facility] 00:00:00 [facility] HIB 4 Dose Schedule 1998 Completed [facility] 00:00:00 [facility] DTAP 1997 Completed [facility] 00:00:00 [facility] Hep B, Adol or Pedi 1997 Completed [facility]ive rsity of Dosage 00:00:00 [facility] HIB 4 Dose Schedule 1997 Completed [facility] 00:00:00 [facility] DTAP 1997 Completed [facility] 00:00:00 [facility] Hep B, Adol or Pedi 1997 Completed [facility]ive [facility]ity of Dosage 00:00:00 [facility] HIB 4 Dose Schedule 1997 Completed [facility] 00:00:00 [facility] DTAP 1997 Completed [facility] 00:00:00 [facility] Hep B, Adol or Pedi 1997 Completed [facility] of Dosage 00:00:00 [facility] HIB 4 Dose Schedule 1997 Completed [facility] 00:00:00 [facility] DTAP 1997 Completed [facility] 00:00:00 [facility] Hep B, Adol or Pedi 1997 Completed [facility] of Dosage 00:00:00 [facility] HIB 4 Dose Schedule 1997 Completed [facility] 00:00:00 [facility] DTAP 1997 Completed [facility] 00:00:00 [facility] Hep B, Adol or Pedi 1997 Completed [facility] of Dosage 00:00:00 [facility] HIB 4 Dose Schedule 1997 Completed [facility] 00:00:00 [facility] DTAP 1997 Completed [facility] 00:00:00 [facility] Hep B, Adol or Pedi 1997 Completed [facility] of Dosage 00:00:00 [facility] HIB 4 Dose Schedule 1997 Completed [facility] 00:00:00 [facility] DTAP 1997 Completed [facility] 00:00:00 [facility] Hep B, Adol or Pedi 1997 Completed [facility] of Dosage 00:00:00 [facility] HIB 4 Dose Schedule 1997 Completed [facility] 00:00:00 [facility] DTAP 1997 Completed [facility] 00:00:00 [facility] Hep B, Adol or Pedi 1997 Completed [facility] of Dosage 00:00:00 [facility] HIB 4 Dose Schedule 1997 Completed [facility] 00:00:00 [facility] DTAP 1997 Completed [facility] 00:00:00 [facility] Hep B, Adol or Pedi 1997 Completed [facility] of Dosage 00:00:00 [facility] HIB 4 Dose Schedule 1997 Completed [facility] 00:00:00 [facility] DTAP 1997 Completed [facility] 00:00:00 [facility] Hep B, Adol or Pedi 1997 Completed [facility] of Dosage 00:00:00 [facility] HIB 4 Dose Schedule 1997 Completed [facility] 00:00:00 [facility] DTAP 1997 Completed [facility] 00:00:00 [facility] Hep B, Adol or Pedi 1997 Completed [facility] of Dosage 00:00:00 [facility] HIB 4 Dose Schedule 1997 Completed [facility] 00:00:00 [facility] DTAP 1997 Completed [facility] 00:00:00 [facility] Hep B, Adol or Pedi 1997 Completed [facility] Dosage 00:00:00 [facility] HIB 4 Dose Schedule 1997 Completed [facility] 00:00:00 [facility] DTAP 1997 Completed [facility] 00:00:00 [facility] Hep B, Adol or Pedi 1997 Completed [facility] of Dosage 00:00:00 [facility] HIB 4 Dose Schedule 1997 Completed [facility] 00:00:00 [facility] DTAP 1997 Completed [facility] 00:00:00 [facility] Hep B, Adol or Pedi 1997 Completed [facility] of Dosage 00:00:00 [facility] HIB 4 Dose Schedule 1997 Completed [facility] 00:00:00 [facility] DTAP 1997 Completed [facility] 00:00:00 [facility] Hep B, Adol or Pedi 1997 Completed [facility] Dosage 00:00:00 [facility] HIB 4 Dose Schedule 1997 Completed [facility] 00:00:00 [facility] DTAP 1997 Completed [facility] 00:00:00 [facility] Hep B, Adol or Pedi 1997 Completed [facility] Dosage 00:00:00 [facility] HIB 4 Dose Schedule 1997 Completed [facility] 00:00:00 [facility] DTAP 1997 Completed [facility] 00:00:00 [facility] Hep B, Adol or Pedi 1997 Completed [facility] Dosage 00:00:00 [facility] HIB 4 Dose Schedule 1997 Completed [facility] 00:00:00 [facility] DTAP 1997 Completed [facility] 00:00:00 [facility] Hep B, Adol or Pedi 1997 Completed [facility] Dosage 00:00:00 [facility] HIB 4 Dose Schedule 1997 Completed [facility] 00:00:00 [facility] DTAP 1997 Completed [facility] 00:00:00 [facility] Hep B, Adol or Pedi 1997 Completed [facility] Dosage 00:00:00 [facility] HIB 4 Dose Schedule 1997 Completed [facility] 00:00:00 [facility] DTAP 1997 Completed [facility] 00:00:00 [facility] Polio (IPV/OPV) 1997 Completed [facility] 00:00:00 [facility] HIB 4 Dose Schedule 1997 Completed [facility] 00:00:00 [facility] DTAP 1997 Completed [facility] 00:00:00 [facility] Polio (IPV/OPV) 1997 Completed [facility] 00:00:00 [facility] HIB 4 Dose Schedule 1997 Completed [facility] 00:00:00 [facility] DTAP 1997 Completed [facility] 00:00:00 [facility] Polio (IPV/OPV) 1997 Completed [facility] 00:00:00 [facility] HIB 4 Dose Schedule 1997 Completed [facility] 00:00:00 [facility] DTAP 1997 Completed [facility] 00:00:00 [facility] Polio (IPV/OPV) 1997 Completed [facility] 00:00:00 [facility] HIB 4 Dose Schedule 1997 Completed [facility] 00:00:00 [facility] DTAP 1997 Completed [facility] 00:00:00 [facility] Polio (IPV/OPV) 1997 Completed [facility] 00:00:00 [facility] HIB 4 Dose Schedule 1997 Completed [facility] 00:00:00 [facility] DTAP 1997 Completed [facility] 00:00:00 [facility] Polio (IPV/OPV) 1997 Completed [facility] 00:00:00 [facility] HIB 4 Dose Schedule 1997 Completed [facility] 00:00:00 [facility] DTAP 1997 Completed [facility] 00:00:00 [facility] Polio (IPV/OPV) 1997 Completed [facility] 00:00:00 [facility] HIB 4 Dose Schedule 1997 Completed [facility] 00:00:00 [facility] DTAP 1997 Completed [facility] 00:00:00 [facility] Polio (IPV/OPV) 1997 Completed [facility] 00:00:00 [facility] HIB 4 Dose Schedule 1997 Completed [facility] 00:00:00 [facility] DTAP 1997 Completed [facility] 00:00:00 [facility] Polio (IPV/OPV) 1997 Completed [facility] 00:00:00 [facility] HIB 4 Dose Schedule 1997 Completed [facility] 00:00:00 [facility] DTAP 1997 Completed [facility] 00:00:00 [facility] Polio (IPV/OPV) 1997 Completed [facility] 00:00:00 [facility] HIB 4 Dose Schedule 1997 Completed [facility] 00:00:00 [facility] DTAP 1997 Completed [facility] 00:00:00 [facility] Polio (IPV/OPV) 1997 Completed [facility] 00:00:00 [facility] HIB 4 Dose Schedule 1997 Completed [facility] 00:00:00 [facility] DTAP 1997 Completed [facility] 00:00:00 [facility] Polio (IPV/OPV) 1997 Completed [facility] 00:00:00 [facility] HIB 4 Dose Schedule 1997 Completed [facility] 00:00:00 [facility] DTAP 1997 Completed [facility] 00:00:00 [facility] Polio (IPV/OPV) 1997 Completed [facility] 00:00:00 [facility] HIB 4 Dose Schedule 1997 Completed [facility] 00:00:00 [facility] DTAP 1997 Completed [facility] 00:00:00 [facility] Polio (IPV/OPV) 1997 Completed [facility] 00:00:00 [facility] HIB 4 Dose Schedule 1997 Completed [facility] 00:00:00 [facility] DTAP 1997 Completed [facility] 00:00:00 [facility] Polio (IPV/OPV) 1997 Completed [facility] 00:00:00 [facility] HIB 4 Dose Schedule 1997 Completed [facility] 00:00:00 [facility] DTAP 1997 Completed [facility] 00:00:00 [facility] Polio (IPV/OPV) 1997 Completed [facility] 00:00:00 [facility] HIB 4 Dose Schedule 1997 Completed [facility] 00:00:00 [facility] DTAP 1997 Completed [facility] 00:00:00 [facility] Polio (IPV/OPV) 1997 Completed [facility] 00:00:00 [facility] HIB 4 Dose Schedule 1997 Completed [facility] 00:00:00 [facility] DTAP 1997 Completed [facility] 00:00:00 [facility] Polio (IPV/OPV) 1997 Completed [facility] 00[facility]00:00 [facility] HIB 4 Dose Schedule 1997 Completed [facility] 00:00:00 [facility] DTAP 1997 Completed [facility] 00:00:00 [facility] Polio (IPV/OPV) 1997 Completed [facility] 00:00:00 [facility] HIB 4 Dose Schedule 1997 Completed [facility] 00:00:00 [facility] DTAP 1997 Completed [facility] 00:00:00 [facility] Hep B, Adol or Pedi 1997 Completed [facility] Dosage 00:00:00 [facility] Polio (IPV/OPV) 1997 Completed [facility] 00:00:00 [facility] HIB 4 Dose Schedule 1997 Completed [facility] 00:00:00 [facility] DTAP 1997 Completed [facility] 00:00:00 [facility] Hep B, Adol or Pedi 1997 Completed [facility] Dosage 00:00:00 [facility] Polio (IPV/OPV) 1997 Completed [facility] 00:00:00 [facility] HIB 4 Dose Schedule 1997 Completed [facility] 00:00:00 [facility] DTAP 1997 Completed [facility] 00:00:00 [facility] Hep B, Adol or Pedi 1997 Completed [facility] Dosage 00:00:00 [facility] Polio (IPV/OPV) 1997 Completed [facility] 00:00:00 [facility] HIB 4 Dose Schedule 1997 Completed [facility] 00:00:00 [facility] DTAP 1997 Completed [facility] 00:00:00 [facility] Hep B, Adol or Pedi 1997 Completed [facility] Dosage 00:00:00 [facility] Polio (IPV/OPV) 1997 Completed [facility] 00:00:00 [facility] HIB 4 Dose Schedule 1997 Completed [facility] 00:00:00 [facility] DTAP 1997 Completed [facility] 00:00:00 [facility] Hep B, Adol or Pedi 1997 Completed [facility] Dosage 00:00:00 [facility] Polio (IPV/OPV) 1997 Completed [facility] 00:00:00 [facility] HIB 4 Dose Schedule 1997 Completed [facility] 00:00:00 [facility] DTAP 1997 Completed [facility] 00:00:00 [facility] Hep B, Adol or Pedi 1997 Completed [facility] Dosage 00:00:00 [facility] Polio (IPV/OPV) 1997 Completed [facility] 00:00:00 [facility] HIB 4 Dose Schedule 1997 Completed [facility] 00:00:00 [facility] DTAP 1997 Completed [facility] 00:00:00 [facility] Hep B, Adol or Pedi 1997 Completed [facility] Dosage 00:00:00 [facility] Polio (IPV/OPV) 1997 Completed [facility] 00:00:00 [facility] HIB 4 Dose Schedule 1997 Completed [facility] 00:00:00 [facility] DTAP 1997 Completed [facility] 00:00:00 [facility] Hep B, Adol or Pedi 1997 Completed [facility] Dosage 00:00:00 [facility] Polio (IPV/OPV) 1997 Completed [facility] 00:00:00 [facility] HIB 4 Dose Schedule 1997 Completed [facility] 00:00:00 [facility] DTAP 1997 Completed [facility] 00:00:00 [facility] Hep B, Adol or Pedi 1997 Completed [facility] Dosage 00:00:00 [facility] Polio (IPV/OPV) 1997 Completed [facility] 00:00:00 [facility] HIB 4 Dose Schedule 1997 Completed [facility] 00:00:00 [facility] DTAP 1997 Completed [facility] 00:00:00 [facility] Hep B, Adol or Pedi 1997 Completed [facility] Dosage 00:00:00 [facility] Polio (IPV/OPV) 1997 Completed [facility] 00:00:00 [facility] HIB 4 Dose Schedule 1997 Completed [facility] 00:00:00 [facility] DTAP 1997 Completed [facility] 00:00:00 [facility] Hep B, Adol or Pedi 1997 Completed [facility] Dosage 00:00:00 [facility] Polio (IPV/OPV) 1997 Completed [facility] 00:00:00 [facility] HIB 4 Dose Schedule 1997 Completed [facility] 00:00:00 [facility] DTAP 1997 Completed [facility] 00:00:00 [facility] Hep B, Adol or Pedi 1997 Completed [facility] Dosage 00:00:00 [facility] Polio (IPV/OPV) 1997 Completed [facility] 00:00:00 [facility] HIB 4 Dose Schedule 1997 Completed [facility] 00:00:00 [facility] DTAP 1997 Completed [facility] 00:00:00 [facility] Hep B, Adol or Pedi 1997 Completed [facility] Dosage 00:00:00 [facility] Polio (IPV/OPV) 1997 Completed [facility] 00:00:00 [facility] HIB 4 Dose Schedule 1997 Completed [facility] 00:00:00 [facility] DTAP 1997 Completed [facility] 00:00:00 [facility] Hep B, Adol or Pedi 1997 Completed [facility] Dosage 00:00:00 [facility] Polio (IPV/OPV) 1997 Completed [facility] 00:00:00 [facility] HIB 4 Dose Schedule 1997 Completed Unive rsity of 00:00:00 [facility] DTAP 1997 Completed University of 00:00:00 [facility] Hep B, Adol or Pedi 1997 Completed Unive rsity of Dosage 00:00:00 [facility] Polio (IPV/OPV) 1997 Completed [facility]it [facility] of 00:00:00 [facility] HIB 4 Dose Schedule 1997 Completed Unive rsity of 00:00:00 [facility] DTAP 1997 Completed University of 00:00:00 [facility] Hep B, Adol or Pedi 1997 Completed Unive rsity of Dosage 00:00:00 [facility] Polio (IPV/OPV) 1997 Completed [facility]it [facility] 00:00:00 [facility] HIB 4 Dose Schedule 1997 Completed Unive rsity of 00:00:00 [facility] DTAP 1997 Completed University of 00:00:00 [facility] Hep B, Adol or Pedi 1997 Completed Unive rsity of Dosage 00:00:00 [facility] Polio (IPV/OPV) 1997 Completed [facility]it [facility] 00:00:00 [facility] HIB 4 Dose Schedule 1997 Completed Unive rsity of 00:00:00 [facility] DTAP 1997 Completed University of 00:00:00 [facility] Hep B, Adol or Pedi 1997 Completed Unive rsity of Dosage 00:00:00 [facility] Polio (IPV/OPV) 1997 Completed [facility]it [facility] 00:00:00 [facility] HIB 4 Dose Schedule 1997 Completed Unive rsity of 00:00:00 [facility] DTAP 1997 Completed University of 00:00:00 [facility] Hep B, Adol or Pedi 1997 Completed Unive rsity of Dosage 00:00:00 [facility] Polio (IPV/OPV) 1997 Completed [facility]it [facility] 00:00:00 [facility] HIB 4 Dose Schedule 1997 Completed Unive rsity of 00:00:00 [facility] Hep B, Adol or Pedi 1997 Completed Unive rsity of Dosage 00:00:00 [facility] Hep B, Adol or Pedi 1997 Completed Unive rsity of Dosage 00:00:00 [facility] Hep B, Adol or Pedi 1997 Completed Unive rsity of Dosage 00:00:00 [facility] Hep B, Adol or Pedi 1997 Completed Unive rsity of Dosage 00:00:00 [facility] Hep B, Adol or Pedi 1997 Completed Unive rsity of Dosage 00:00:00 [facility] Hep B, Adol or Pedi 1997 Completed Unive rsity of Dosage 00:00:00 [facility] Hep B, Adol or Pedi 1997 Completed Unive rsity of Dosage 00:00:00 [facility] Hep B, Adol or Pedi 1997 Completed Unive rsity of Dosage 00:00:00 [facility] Hep B, Adol or Pedi 1997 Completed Unive rsity of Dosage 00:00:00 [facility] Hep B, Adol or Pedi 1997 Completed Unive rsity of Dosage 00:00:00 [facility] Hep B, Adol or Pedi 1997 Completed Unive rsity of Dosage 00:00:00 [facility] Hep B, Adol or Pedi 1997 Completed Unive rsity of Dosage 00:00:00 [facility] Hep B, Adol or Pedi 1997 Completed Unive rsity of Dosage 00:00:00 [facility] Hep B, Adol or Pedi 1997 Completed Unive rsity of Dosage 00:00:00 [facility] Hep B, Adol or Pedi 1997 Completed Unive rsity of Dosage 00:00:00 [facility] Hep B, Adol or Pedi 1997 Completed Unive rsity of Dosage 00:00:00 [facility] Hep B, Adol or Pedi 1997 Completed Unive rsity of Dosage 00:00:00 [facility] Hep B, Adol or Pedi 1997 Completed Unive rsity of Dosage 00:00:00 [facility] Hep B, Adol or Pedi 1997 Completed Unive rsity of Dosage 00:00:00 [facility] HPV Unknown Completed [facility] HPV Unknown Completed [facility] H1n1 Vaccine Unknown Completed [place] [facility] Meningococcal Unknown Completed [facility] MMR Unknown Completed [facility] MMR Unknown Completed [facility] Polio (IPV/OPV) Unknown Completed [facility] Polio (IPV/OPV) Unknown Completed [facility] Polio (IPV/OPV) Unknown Completed [facility] Polio (IPV/OPV) Unknown Completed [facility] TDAP Unknown Completed [facility] Varicella Unknown Completed [facility] (varivax[facility] [place] [facility] HIB 4 Dose Schedule Unknown Completed Unive rsity [facility] HIB 4 Dose Schedule Unknown [facility] D[facility] Unknown [facility] 4 Dose Schedule Unknown Completed [facility] Varicella Unknown Completed [facility] (varivax[facility] [place] [facility] [place] SARS-COV-2 COVID-19 Unknown Completed Unive rsity of PFIZER VACCINE [facility] SARS-COV-2 COVID-19 Unknown Completed Unive rsity of PFIZER VACCINE [facility] DTAP Unknown Completed [facility] DTAP Unknown Completed [facility] DTAP Unknown Completed [facility] DTAP Unknown Completed [facility] DTAP Unknown Completed [facility] HEPATITIS A Unknown Completed [facility] HEPATITIS A Unknown Completed [facility] Hep B, Adol or Pedi Unknown Completed Unive rsity of Dosage [facility] Hep B, Adol or Pedi Unknown Completed Unive rsity [facility] Dosage [facility] Hep B, Adol or Pedi Unknown Completed Unive rsity of Dosage [facility] HPV Unknown Completed [facility] Vital Signs Vital Name Observation Time Observation Value Comments Source Systolic blood 2022-06-05 15:36:00 108 mm[Hg] Univer sity of [facility] Diastolic blood 2022-06-05 15:36:00 72 mm[Hg] Unive rsity of [facility] Heart rate 2022-06-05 15:36:00 85 /min [facility] Body temperature 2022-06-05 15:36:[address] [facility] Respiratory rate 2022-06-05 15:36:00 18 /min [facility] Body height 2022-06-05 15:36:00 167.6 cm [facility] Body weight 2022-06-05 15:36:00 59.96 kg [facility] BMI 2022-06-05 15:36:00 21.34 kg/m2 [facility] Systolic blood 2022-05-22 22:36:00 130 mm[Hg] Univer sity of [facility] Diastolic blood 2022-05-22 22:36:00 79 mm[Hg] Unive rsity of [facility] Heart rate 2022-05-22 22:36:00 101 /min [facility] Body temperature 2022-05-22 22:36:00 37.11 Shoshana Univ ersity of [facility] Respiratory rate 2022-05-22 22:36:00 16 /min Univ ersity of [facility] Body height 2022-05-22 22:36:00 167.6 cm [facility] Body weight 2022-05-22 22:36:00 61.326 kg [facility] BMI 2022-05-22 22:36:00 21.82 kg/m2 [facility] Oxygen saturation in 2022-05-22 22:36:00 98 /min University of Arterial blood by [facility] Pulse oximetry Branch Systolic blood 2022-05-15 14:07:00 114 mm[Hg] Univer sity of pressure [facility] Diastolic blood 2022-05-15 14:07:00 68 mm[Hg] Unive rsity of pressure [facility] Heart rate 2022-05-15 14:07:00 72 /min [facility] Body temperature 2022-05-15 14:07:00 36.39 Shoshana Univ [facility] Respiratory rate 2022-05-15 14:07:00 20 /min Univ ersity of [facility] Body height 2022-05-15 14:07:00 167.6 cm [facility] Body weight 2022-05-15 14:07:00 62.687 kg [facility] BMI 2022-05-15 14:07:00 22.31 kg/m2 [facility] Systolic blood 2022-04-25 21:46:00 107 mm[Hg] Univer sity of pressure [facility] Diastolic blood 2022-04-25 21:46:00 77 mm[Hg] Unive rsity of pressure [facility] Heart rate 2022-04-25 21:46:00 103 /min [facility] Body temperature 2022-04-25 21:46:00 36.67 Shoshana Univ [facility] Respiratory rate 2022-04-25 21:46:00 18 /min Univ ers[facility] of [facility] Oxygen saturation in 2022-04-25 21:46:00 98 /min University of Arterial blood by [facility] Pulse oxim[facility] Branch Body weight 2022-04-23 13:00:00 73 kg [facility] BMI 2022-04-23 13:00:00 25.98 kg/m2 [facility] Body height 2022-04-23 12:50:00 167.6 cm [facility] Systolic blood 2022-04-20 13:58:00 135 mm[Hg] Univer sity of pressure [facility] Diastolic blood 2022-04-20 13:58:00 88 mm[Hg] Unive rsity of pressure [facility] Heart rate 2022-04-20 13:58:00 103 /min [facility] Body temperature 2022-04-20 13:58:00 36.67 Shoshana Univ [facility] Respiratory rate 2022-04-20 13:58:00 18 /min Univ ers[facility] Body height 2022-04-20 13:58:00 167.6 cm [facility] Body weight 2022-04-20 13:58:00 73.029 kg [facility] BMI 2022-04-20 13:58:00 25.99 kg/m2 [facility] Systolic blood 2022-04-15 14:45:00 135 mm[Hg] Univer sity of pressure [facility] Diastolic blood 2022-04-15 14:45:00 81 mm[Hg] Unive rsity of pressure [facility] Heart rate 2022-04-15 14:45:00 99 /min [facility] Body temperature 2022-04-15 14:45:00 37 Shoshana [facility] Respiratory rate 2022-04-15 14:45:00 18 /min Univ [facility] Body height 2022-04-15 14:45:00 167.6 cm [facility] Body weight 2022-04-15 14:45:00 73.573 kg [facility] BMI 2022-04-15 14:45:00 26.18 kg/m2 [facility] Oxygen saturation in 2022-04-15 14:45:00 99 /min University of Arterial blood by [facility] Pulse oximetry Branch Systolic blood 2022-04-09 13:33:00 113 mm[Hg] [facility] of pressure [facility] Diastolic blood 2022-04-09 13:33:00 73 mm[Hg] [facility] Heart rate 2022-04-09 13:33:00 89 /min [facility] Body temperature 2022-04-09 13:33:[address] [facility] Respiratory rate 2022-04-09 13:33:00 18 /min [facility] Body height 2022-04-09 13:33:00 165.1 cm [facility] Body weight 2022-04-09 13:33:00 71.867 kg [facility] BMI 2022-04-09 13:33:00 26.37 kg/m2 [facility] Procedures Procedure Date / Time Performing Clinician Source Performed POCT URINALYSIS W/O 2022-06-05 15:57:00 Alena Gibson [facility] SPECIFIC GRAVITY [facility] POCT SARS-COV-2 2022-05-22 23:00:[address] [facility] ANTIGEN (BINAX NOW) Medical Bran ch POCT MOLECULAR FLU 2022-05-22 22:56:00 Unknown, Attending [facility] POCT MOLECULAR STREP 2022-05-22 22:53:00 Unknown, Attending [facility] POCT URINALYSIS 2022-05-22 22:49:00 Kenna Cobb [facility] CBC WITH DIFF 2022-04-24 09:55:00 Solange Harris [facility] CBC WITH DIFF 2022-04-24 02:12:00 Maral Loomis [facility] VENOUS CORD GAS 2022-04-24 00:26:00 Tanisha Navarro [facility] CENTRAL NEURAXIAL 2022-04-23 18:02:48 Usman Shultz [facility] CBC WITH DIFF 2022-04-23 14:36:00 Hedy Orantes [place] [facility] HEPATITIS B SURFACE 2022-04-23 14:24:[address] [facility] ANTIGEN [facility] HIV 1/2 AG-AB WITH 2022-04-23 14:24:00 Hedy Orantes [facility] REFLEX [facility] GALV ONLY - SYPHILIS 2022-04-23 14:24:[address] [facility] IGG/IGM [facility] HB ABO GROUPING 2022-04-23 14:23:00 Tanisha Navarro [facility] RHO (D) IMMUNE 2022-04-23 14:23:[address] [facility] POCT URINALYSIS 2022-04-20 14:00:00 Alena Gibson [facility] POCT URINALYSIS 2022-04-15 14:54:00 Alena Gibson [facility] POCT URINALYSIS 2022-04-09 13:35:00 Alena Gibson [facility] Encounters Start End Encounter Admission Attending Care Care Encounter Source Date/Time Date/Time Type Type Clinicians Facility Department ID 2023-06-13 2023-06-13 Outpatient GC_GCBZW_Ka PRIV PRIV [id number] [facility] 00:00:00 00:00:00 diyala_S [id number] Medic al 2023-06-07 2023-06-07 Outpatient R ARTHUR [facility] [id number] Univers 09:15:00 09:15:00 ALENA john o f [facility] 2023-05-27 2023-05-27 Outpatient GC_GCBZW_Ka PRIV PRIV [id number] [facility] 00:00:00 00:00:00 diyala_S [id number] Medic al 2023-05-13 2023-05-13 Outpatient GC_GCBZW_Ka PRIV PRIV [id number] [facility] 00:00:00 00:00:00 diyala_S [id number] Medic al 2023-05-12 2023-05-12 Outpatient GC_GCBZW_Ka PRIV PRIV [id number] [facility] 00:00:00 00:00:00 diyala_S [id number] Medic al 2023-05-11 2023-05-11 Outpatient GC_GCBZW_Ka PRIV PRIV [id number] [facility] 00:00:00 00:00:00 diyala_S [id number] Medic al 2023-04-14 2023-04-14 Outpatient GC_GCBZW_Ka PRIV PRIV [id number] [facility] 00:00:00 00:00:00 diyala_S [id number] Medic al 2023-03-30 2023-03-30 Outpatient GC_GCBZW_Ka PRIV PRIV [id number] [facility] 00:00:00 00:00:00 diyala_S [id number] Medic al 2023-03-17 2023-03-17 Outpatient GC_GCBZW_Ka PRIV PRIV [id number] [facility] 00:00:00 00:00:00 diyala_S [id number] Medic al 2023-03-08 2023-03-08 Outpatient GC_GCBZW_Ka PRIV PRIV [id number] [facility] 00:00:00 00:00:00 diyala_S [id number] Medic al 2023-03-01 2023-03-01 Outpatient GC_GCBZW_Ka PRIV PRIV [id number] [facility] 00:00:00 00:00:00 diyala_S [id number] Medic al 2023-02-15 2023-02-15 Outpatient GC_GCBZW_Ka PRIV PRIV [id number] [facility] 00:00:00 00:00:00 diyala_S [id number] Medic al 2022 2022 Outpatient R ZULEMA, [facility] [id number] Univers 08:30:00 08:30:[address] [facility] 2022-06-05 2022-06-05 Outpatient R ARTHUR, [facility] [id number] Univers 09:15:00 10:24:[address] [facility] 2022-06-05 2022-06-05 Office Akinmichael, [facility] [[email or web address]] [id number] Univers 09:15:00 10:24:47 Visit Alena C JUNIOR ACCOUNTANT 350.1.13.10 ity of REGIONAL 4.2.7.2.686 [place] MATERNAL [phone] [facility] & CHILD [address] [place] [address] 2022-05-22 2022-05-22 Outpatient R UNKNOWN, [facility] [id number] Univers 19:00:00 19:00:00 ATTENDING ity [facility] 2022-05-22 2022-05-22 Outpatient R SERVANDO [facility] [id number] Univers 17:20:00 18:40:47 FILIPPO ity [facility] 2022-05-22 2022-05-22 Urgent Filippo Al [facility] 1.2.840.1 [id number] Univers 17:20:00 17:40:00 Care Unknown, Attending HEALTH 350.1.13.10 ity [facility] 4.2.7.2.686 [place] JOSE E?BLEA [phone] [address] MEDICAL OFFICE BUILDING 2022-05-22 2022-05-22 Telephone [facility] [id number] [id number] Univers 00:00:00 00:00:00 Alena C JUNIOR ACCOUNTANT 350.1.13.10 ity of [facility] 4.2.7.2.686 [place] MATERNAL [id number] [facility] & CHILD [address] [place] [address] 2022-05-15 2022-05-15 [facility] [id number] Univers 09:00:00 09:29:29 ALENA ity o f [facility] 2022-05-15 2022-05-15 Routine [facility] [id number] Univers 09:00:00 09:29:29 Alena C JUNIOR ACCOUNTANT 350.1.13.10 ity of Visit [facility] 4.2.7.2.686 [place] MATERNAL [phone] [facility] & CHILD [address] [place] [address] 2022-04-29 2022-04-29 Telephone [facility] [id number] [id number] Univers 00:00:00 00:00:00 Alena C JUNIOR ACCOUNTANT 350.1.13.10 ity of REGIONAL 4.2.7.2.686 [place] MATERNAL [phone] [facility] ical & CHILD [address] [place] [address] 2022-04-23 2022-04-25 Inpatient P YORDAN [facility] [[email or web address] TRIPP [id number] Univers 07:34:00 19:33:00 SOBIA it y of VICENTA Davila [facility] 2022-04-23 2022-04-25 [facility] Vicenta Amador PETER 1 .2.840.114 [id number] Univers 07:34:00 19:33:00 Encounter Cuca Navarrokeireuben KAI 350.1 .13.10 ity of [facility] 4.2.7.2.686 [place] [phone] [facility] 134 Branch 2022-04-23 2022-04-23 Anesthesia Usman Shultz 1.2.840.114 [id number] Univers 12:46:00 21:12:00 Event Jeannette Granado KAI 350.1.13.10 ity of [facility] 4.2.7.2.686 [place] [id number] [facility] 132 Branch 2022-04-20 2022-04-20 Outpatient R AKINSIPE, [facility] [id number] Univers 08:45:00 09:28:43 ALE[address]ohn o f [facility] 2022-04-20 2022-04-20 Routine [facility], [facility] [[email or web address]] 1.2.013.028 [id number] Univers 08:45:00 09:28:43 Alena C JUNIOR ACCOUNTANT 350.1.13.10 ity of Visit REGIONAL 4.2.7.2.686 [place] MATERNAL [phone] [facility] ical & CHILD [address] [place] [address] 2022-04-15 2022-04-15 Outpatient R AKINSIPE, [facility] [id number] Univers 09:45:00 10:21:34 [address] o f [facility] 2022-04-15 2022-04-15 Routine Akinsipe, [facility] [[email or web address]] [id number] [id number] Univers 09:45:00 10:21:34 Alena C JUNIOR ACCOUNTANT 350.1.13.10 ity of Visit REGIONAL 4.2.7.2.686 [place] MATERNAL [id number] [facility] & CHILD [address] [place] [address] 2022-04-09 2022-04-09 Routine Akinsipe, [facility] [[email or web address]] [id number] [id number] Univers 08:30:00 08:45:00 Alena C JUNIOR ACCOUNTANT 350.1.13.10 ity of Visit REGIONAL 4.2.7.2.686 [place] MATERNAL [id number] [facility] & [address] 2022-04-09 2022-04-09 Outpatient R AKINSIPE, [facility] [id number] Univers 08:30:00 08:30:00 ALENA ity o [facility] 2022-04-09 2022-04-09 Outpatient R AKINSIPE, [facility] [id number] Univers 08:30:00 08:30:00 ALENA ity o [facility] 2022-04-03 2022-04-03 Telephone Akinsipe, [facility] [[email or web address]] 1.2.840.114 [id number] Univers 00:00:00 00:00:00 Alena C JUNIOR ACCOUNTANT 350.1.13.10 ity of REGIONAL 4.2.7.2.686 [place] MATERNAL [phone] [facility] & [address] 2022-04-02 2022-04-02 Outpatient P [facility] [id number] Univers 09:15:00 09:15:[address] [facility] 2022-04-02 2022-04-02 Outpatient R AKINSIPE, [facility] [id number] Univers 08:15:00 08:57:41 ALENA ity o [facility] 2022-04-02 2022-04-02 Routine Akinsipe, [facility] [[email or web address]] [id number] [id number] Univers 08:15:00 08:57:41 Alena C JUNIOR ACCOUNTANT 350.1.13.10 ity of Visit REGIONAL 4.2.7.2.686 [place] MATERNAL [phone] Med ical & [address] 2022-04-02 2022-04-02 Outpatient R AKINSIPE, [facility] [id number] Univers 08:15:00 08:57:41 [address] ity o f [facility] 2022-04-02 2022-04-02 Outpatient R AKINSIPE, [facility] [id number] Univers 08:15:00 08:15:00 ALENA ity o f [facility] 2022-03-24 2022-03-24 Abstract Akinsipe, [facility] [[email or web address]] 1.2.840.114 [id number] Univers 00:00:00 00:00:00 Alena C JUNIOR ACCOUNTANT 350.1.13.10 ity of REGIONAL 4.2.7.2.686 [place] MATERNAL [phone] [facility] & [address] 2022-03-23 2022-03-23 Merchandising Director [facility] [[email or web address]] 1.2. [id number] [id number] Univers 11:15:00 12:02:08 Visit Vicenta Amador JUNIOR ACCOUNTANT 350.1. 13.10 ity of REGIONAL 4.2.7.2.686 [place] MATERNAL [id number] [facility] & [address] 2022-03-23 2022-03-23 Outpatient P [facility] [id number] Univers 11:15:00 11:15:[address] [facility] 2022-03-23 2022-03-23 Outpatient P FARR [facility] [id number] Univers 11:15:00 11:15:00 SOBIA it y of S, YADAV [facility] 2022-03-19 2022-03-19 Outpatient R AKINSIPE, [facility] [id number] Univers 10:45:00 11:43:06 ALENA ity o f [facility] 2022-03-19 2022-03-19 Routine Akinsipe, [facility] [[email or web address]] [id number] [id number] Univers 10:45:00 11:43:06 Alena C JUNIOR ACCOUNTANT 350.1.13.10 ity of Visit REGIONAL 4.2.7.2.686 [place] MATERNAL [phone] [facility] & CHILD [address] [place] [address] 2022-03-05 2022-03-05 Routine Akinsipe, [facility] [[email or web address]] 1.2.223.518 [id number] Univers 10:45:00 11:00:00 Alena C JUNIOR ACCOUNTANT 350.1.13.10 ity of Visit [facility] 4.2.7.2.686 [place] MATERNAL [id number] [address] 2022-03-05 2022-03-05 Outpatient R AKINSIPE, [facility] [id number] Univers 10:45:00 10:45:00 ALENA ity o [facility] 2022-03-05 2022-03-05 Outpatient R AKINSIPE, [facility] [id number] Univers 10:45:00 10:45:00 ALENA ity o [facility] 2022-03-05 2022-03-05 Outpatient P [facility] [id number] Univers 09:00:00 09:00:[address] [facility] 2022-02-27 2022-02-27 Orders Doctor PETER 1.2.840.114 [id number] Univers 00:00:00 00:00:00 Only Unassigned, KAI 350.1.13.10 ity of [place] [facility] 4.2.7.2.686 [place] [id number] [address] 2022-02-19 2022-02-19 Outpatient R AKINSIPE, [facility] [id number] Univers 09:45:00 10:53:59 ALENA ity o [facility] 2022-02-19 2022-02-19 Routine Akinsipe, [facility] [[email or web address]] 1.2.170.252 [id number] Univers 09:45:00 10:53:59 Alena C JUNIOR ACCOUNTANT 350.1.13.10 ity of Visit [facility] 4.2.7.2.686 [place] MATERNAL [id number] [facility] & CHILD [address] [place] [address] 2022-02-19 2022-02-19 Outpatient R AKINSIPE, [facility] [id number] Univers 09:45:00 09:45:00 ALENA ity o f [facility] 2022-02-05 2022-02-05 Outpatient R AKINSIPE, [facility] [id number] Univers 10:30:00 11:51:33 [address]y o f [facility] 2022-02-05 2022-02-05 Outpatient R AKINSIPE, [facility] [id number] Univers 10:30:00 11:51:33 ALENA ity o [facility] 2022-02-05 2022-02-05 Routine Akinsipe, [facility] [[email or web address]] 1.2.479.664 [id number] Univers 10:30:00 11:51:33 Alena C JUNIOR ACCOUNTANT 350.1.13.10 ity of Visit REGIONAL 4.2.7.2.686 [place] as MATERNAL [phone] [facility] & CHILD [address] [place] [address] 2022-02-05 2022-02-05 Outpatient R AKINSIPE, [facility] [id number] Univers 10:30:00 10:30:00 ALENA ity o [facility] 2022-01-16 2022-01-16 [facility] 1.2.840.114 [id number] Univers 00:00:00 00:00:00 Alena C JUNIOR ACCOUNTANT 350.1.13.10 ity of REGIONAL 4.2.7.2.686 [place] as MATERNAL [phone] [facility] & [address] 2022-01-15 2022-01-15 Patient Akinsipe, [facility] [[email or web address]] 1.2.349.101 [id number] Univers 00:00:00 00:00:00 Secure Msg Alena C JUNIOR ACCOUNTANT 350.1.13.10 ity of REGIONAL 4.2.7.2.686 [place] as MATERNAL [id number] [facility] & CHILD [address] [place] [address] 2022-01-14 2022-01-14 Outpatient R AKINSIPE, [facility] [id number] Univers 09:30:00 10:21:42 ALENA ity o [facility] 2022-01-14 2022-01-14 Routine Akinsipe, [facility] [[email or web address]] 1.2.435.464 [id number] Univers 09:30:00 10:21:42 Alena C JUNIOR ACCOUNTANT 350.1.13.10 ity of Visit REGIONAL 4.2.7.2.686 [place] as MATERNAL [id number] [facility] ical & CHILD [address] [place] [address] 2021-12-19 2021-12-19 Telephone [facility] 1.2.840.114 [id number] Univers 00:00:00 00:00:00 Alena C JUNIOR ACCOUNTANT 350.1.13.10 ity of REGIONAL 4.2.7.2.686 [place] as MATERNAL [id number] [facility] & CHILD [address] [place] [address] 2021-12-17 2021-12-17 [facility] [id number] Univers 09:15:00 09:52:06 ALENA ity o f [facility] 2021-12-17 2021-12-17 Routine [facility] 1.2.635.999 [id number] Univers 09:15:00 09:52:06 Alena C JUNIOR ACCOUNTANT 350.1.13.10 ity of Visit REGIONAL 4.2.7.2.686 [place] as MATERNAL [id number] [facility] & CHILD [address] [place] [address] 2021-12-04 2021-12-04 Merchandising Director Ultrasound, [facility] 1.2 .840.114 [id number] Univers 10:00:00 11:00:00 Visit Bobo Orr JUNIOR ACCOUNTANT 350.1.13.10 ity of REGIONAL 4.2.7.2.686 [place] as MATERNAL [id number] [facility] ical & CHILD [address] [place] [address] 2021-12-04 2021-12-04 Outpatient P BOBO ORR [facility] [id number] Univers 10:00:00 10:00:00 BOBO ORR itterrell [facility] 2021-12-04 2021-12-04 Abstract [facility] 1.2.840.114 [id number] Univers 00:00:00 00:00:00 Alena C JUNIOR ACCOUNTANT 350.1.13.10 ity of REGIONAL 4.2.7.2.686 [place] MATERNAL [phone] [facility] ical & CHILD [address] [place] [address] 2021-11-19 2021-11-19 Outpatient R ARTHUR, [facility] [id number] Univers 09:30:00 10:05:47 ALENA ity o f [facility] 2021-11-19 2021-11-19 Routine Akinpe, [facility] [[email or web address]] [id number] Univers 09:30:00 10:05:47 Alena C JUNIOR ACCOUNTANT 350.1.13.10 ity of Visit REGIONAL 4.2.7.2.686 [place] MATERNAL [phone] [facility] & CHILD [address] [place] [address] 2021-10-22 2021-10-22 Outpatient R ARTHUR, [facility] [id number] Univers 10:45:00 11:09:58 ALENAKEVIN john o f [facility] 2021-10-22 2021-10-22 [facility]ine [facility] [[email or web address]] 1.2.550.564 [id number] Univers 10:45:00 11:09:58 Alena C JUNIOR ACCOUNTANT 350.1.13.10 ity of Visit REGIONAL 4.2.7.2.686 [place] MATERNAL [phone] [facility] & CHILD [address] [place] [address] 2021-10-20 2021-10-20 Outpatient R MONICO, [facility] [id number] Univers 14:45:00 15:21:13 NOMAN ity [facility] 2021-10-20 2021-10-20 Merchandising Director Lab, [facility] UNIVERSIT 1.2.84 0.114 [id number] Univers 14:45:00 15:21:13 Visit Noman Marc Infolinksmelody [facility] HEALTH 350.1 .13.10 it[place] of [place] [id number] [address] 2021-10-20 2021-10-20 Merchandising Director 1, [facility] M[facility] Usg Room UNIVERSIT 1 .2.840.114 [id number] Univers 14:00:00 15:05:36 Visit RajeshNoman diazuvbogie Y HEALTH 350.1 .13.10 it[place] [id number] [facility] [address] 2021-10-20 2021-10-20 Outpatient P [facility] [id number] Univers 14:00:00 14:00:[address] [facility] 2021-10-20 2021-10-20 Case CALLIE JamaIT 1.2.946.886 [id number] Univers 00:00:00 00:00:00 Management Donna Y HEALTH 350.1.13.10 ity of CL[place] [id number] [facility] [address] 2021-10-20 2021-10-20 Abstract Arthur [facility] [[email or web address]] 1.2.840.114 [id number] Univers 00:00:00 00:00:00 Alena Jorge JUNIOR ACCOUNTANT 350.1.13.10 ity of REGIONAL 4.2.7.2.686 [place] as MATERNAL [phone] Med ical & CHILD [address] [place] [address] 2021-09-26 2021-09-26 Merchandising Director Lab, [facility] 1.2.840. 114 [id number] Univers 10:30:00 14:28:20 Visit Alena Gibson JUNIOR ACCOUNTANT 350.1.13. 10 ity of REGIONAL 4.2.7.2.686 [place] as MATERNAL [phone] Med ical & CHILD [address] [place] [address] 2021-09-26 2021-09-26 Outpatient R ARTHUR [facility] [id number] Univers 10:30:00 10:30:00 ALENA [address] o [address] [facility] 2021-09-25 2021-09-25 Outpatient R [facility] [id number] Univers 15:00:00 15:00:[address] [facility] 2021-09-25 2021-09-25 Outpatient R ARTHUR [facility] [id number] Univers 13:00:00 13:00:00 ALENA john o f [facility] 2021-09-24 2021-09-24 Routine Arthur [facility] [[email or web address]] 1.2.252.511 [id number] Univers 10:30:00 11:27:19 Alena C JUNIOR ACCOUNTANT 350.1.13.10 ity of Visit REGIONAL 4.2.7.2.686 [place] as MATERNAL [id number] [facility] & [address] 2021-09-24 2021-09-24 Outpatient R AKINSIPE, [facility] [id number] Univers 10:30:00 11:27:19 ALENA dolany o [facility] 2021-09-24 2021-09-24 Outpatient R AKINSIPE, [facility] [id number] Univers 10:30:00 10:30:00 ALENA dolany o [facility] 2021-09-24 2021-09-24 Outpatient R AKINSIPE, [facility] [id number] Univers 10:30:00 10:30:00 ALENA john o [facility] 2021-09-17 2021-09-17 [facility] 1.2.840.114 [id number] Univers 00:00:00 00:00:00 Alena C JUNIOR ACCOUNTANT 350.1.13.10 ity of REGIONAL 4.2.7.2.686 [place] as MATERNAL [id number] [address] 2021-09-01 2021-09-01 [facility] 1.2.840.114 [id number] Univers 00:00:00 00:00:00 Alena C JUNIOR ACCOUNTANT 350.1.13.10 ity of REGIONAL 4.2.7.2.686 [place] as MATERNAL [id number] [facility] & [address] 2021-08-27 2021-08-27 Outpatient R AKINSIPE, [facility] [id number] Univers 13:30:00 14:40:54 ALENA john o [facility] 2021-08-27 2021-08-27 Outpatient R AKINSIPE, [facility] [id number] Univers 13:30:00 14:40:54 ALENA dolany o [facility] 2021-08-27 2021-08-27 Initial [facility] 1.2.801.454 [id number] [facility] 13:30:00 14:40:54 Alena Jorge JUNIOR ACCOUNTANT 350.1.13.10 ity of Visit [facility] 4.2.7.2.686 [place] as MATERNAL [phone] Med ical & CHILD [address] [place] [address] 2021-08-27 2021-08-27 Outpatient R ARTHUR, [facility] [id number] Univers 13:00:00 13:00:00 ALENA ity o f [facility] 2021-08-27 2021-08-27 Orders Doctor PETER 1.2.840.114 [id number] Univers 00:00:00 00:00:00 Only Unassigned, KAI 350.1.13.10 ity of [place] [facility] 4.2.7.2.686 [place] as [id number] [address] Results Test Description Test Time Test Comments Results Result Comments Source POCT URINALYSIS W/O SPECIFIC GRAVITY 2022-06-05 15:57:00 Test Item Value Reference Range Interpretation Comme nts POCT PH U (test code = 3254) 6 mg/dl 5-8 POCT U LEUK EST (test code = 3263) 1+ Negative - Negative POCT U NIT (test code = 3262) Neg Negative - Negative POCT U PROT (test code = 3259) Trace Negative - Negative POCT U GLU (test code = 3256) Neg Negative - Negative POCT U KETONE (test code = 3258) None Negative - Negative POCT U BLD (test code = 3257) Trace Negative - Negative [facility] SPECIFIC [id number] 15:57:00 Test Item Value Reference Range Interpretation Comments POCT PH U (test code = 3254) 6 mg/dl 5-8 POCT U LEUK EST (test code = 1+ Negative - Negative 3263) POCT U NIT (test code = 3262) Neg Negative - Negative POCT U PROT (test code = 3259) Trace Negative - Negative POCT U GLU (test code = 3256) Neg Negative - Negative POCT U KETONE (test code = 3258) None Negative - Negative POCT U BLD (test code = 3257) Trace Negative - Negative [facility] SPECIFIC [id number] 15:57:00 Test Item Value Reference Range Interpretation Comments POCT PH U (test code = 3254) 6 mg/dl 5-8 POCT U LEUK EST (test code = 1+ Negative - Negative 3263) POCT U NIT (test code = 3262) Neg Negative - Negative POCT U PROT (test code = 3259) Trace Negative - Negative POCT U GLU (test code = 3256) Neg Negative - Negative POCT U KETONE (test code = 3258) None Negative - Negative POCT U BLD (test code = 3257) Trace Negative - Negative [facility] SARS-COV-2 ANTIGEN (BINAX NOW)2022-05-22 23:15:00 Test Item Value Reference Range Interpretation Comments POCT SARS-COV-2 ANTIGEN (test Not Detected Not Detected code = 26198-8) On board controls acceptable Yes with C Line (test code = 3574) Lab Interpretation (test code = Normal 45928-8) [facility] MOLECULAR [id number] 23:07:40 Test Item Value Reference Range Interpretation Comments POCT Molecular FluA (test code = Negative Negative 15159-3) POCT Molecular FluB (test code = Negative Negative 74474-3) Lab Interpretation (test code = Normal 04557-0) [facility] MOLECULAR [id number] 23:00:43 Test Item Value Reference Range Interpretation Comments POCT Molecular Strep (test code = Negative Negative 92701-2) Lab Interpretation (test code = Normal 12727-3) [facility] URINALYSIS W SPECIFIC [id number] 22:55:00 Test Item Value Reference Range Interpretation Comments POCT U SP GRAV azo stained 1.005-1.025 (test code = 3255) POCT PH U (test azo stained 5-8 code = 3254) POCT U LEUK EST azo stained Negative - Negative (test code = 3263) POCT U NIT (test azo stained Negative - Negative code = 3262) POCT U PROT (test azo stained Negative - Negative code = 3259) POCT U GLU (test azo stained Negative - Negative code = 3256) POCT U KETONE azo stained Negative - Negative (test code = 3258) POCT U UROBILI azo stained 0.2-1 (test code = 3260) POCT U BILI (test azo stained Negative - Negative code = 3261) POCT U BLD (test azo stained Negative - Negative code = 3257) POCT U COLOR (test azo stained code = 3266) POCT U APPEAR azo stained (test code = 3267) GERRY (test code = accurate development and GERRY) interpretation of all internal controls [facility] (D) IMMUNE [id number] 04:05:46 Test Item Value Reference Range Interpretation Comments RHIG CANDIDATE? No- see comment Patient i s not a (test code = candidate for R hIg- 5055) Patient is Rh Positive.Perfor med at [facility] [[email or web address]] Laboratory Services - [facility] Blood [address] [place] [address]Lkph Free: [phone] A No. [id number] [facility] WITH [id number] 02:21:31 Test Item Value Reference Range Interpretation Comments WBC (test code = See_Comment H [Automated 7690-2) message] The system which generated this result transmit baldemar reference range : 4.30 - 11.10 10*3/?L. The reference range was not used to interpret this result as normal/abnormal . RBC (test code = See_Comment L [Automated 079-8) message] The system which generated this result transmit baldemar reference range : 3.93 - 5.25 10*6/?L. The reference range was not used to interpret this result as normal/abnormal . HGB (test code = 9.5 g/dL 11.6-15 L 718-7) HCT (test code = 29.3 % 35.7-45.2 L 4544-3) MCV (test code = 88.0 fL 80.6-95.5 787-2) MCH (test code = 28.5 pg 25.9-32.8 785-6) MCHC (test code = 32.4 g/dL 31.6-35.1 786-4) RDW-SD (test code = 44.4 fL 39-49.9 51329-1) RDW-CV (test code = 13.8 % 12-15.5 788-0) PLT (test code = See_Comment L [Automated 777-3) message] The system which generated this result transmit baldemar reference range : 166 - 358 10*3/ ?L. The reference range was not u sed to interpret th is result as normal/abnormal . MPV (test code = 11.2 fL 9.5-12.9 88998-2) NRBC/100 WBC (test See_Comment [Automat ed code = 1737149011) message] The system which generated this result transmit baldemar reference range : 0.0 - 10.0 /100 WBCs. The reference range was not used to interpret this result as normal/abnormal . NRBC x10^3 (test code See_Comment [Auto mated = 6017005552) message] The system which generated this result transmit baldemar reference range : 10*3/?L. The reference range was not used to interpret this result as normal/abnormal . GRAN MAT (NEUT) % 82.7 % (test code = 770-8) IMM GRAN % (test code 0.40 % = 5016351550) LYMPH % (test code = 8.8 % 736-9) MONO % (test code = 7.9 % 5905-5) EOS % (test code = 0.0 % 713-8) BASO % (test code = 0.2 % 706-2) GRAN MAT x10^3(ANC) 14.02 10*3/uL 1.88-7.09 H (test code = 6390654210) IMM GRAN x10^3 (test 0.07 10*3/uL 0-0.06 H code = 5914275863) LYMPH x10^3 (test code 1.49 10*3/uL 1.32-3.29 = 731-0) MONO x10^3 (test code 1.33 10*3/uL 0.33-0.92 H = 742-7) EOS x10^3 (test code = 0.03-0.39 L 711-2) BASO x10^3 (test code 0.03 10*3/uL 0.01-0.07 = 704-7) Lab Interpretation Abnormal (test code = 73008-9) [facility] BranchARTERIAL CORD [id number] 00:35:34 Test Item Value Reference Range Interpretation Comments BASE EXCESS, CORD mEq/L (test code = 2713635065) AC PH, CORD (BEAKER) 7.18-7.38 (test code = 7319386754) PC02, CORD (test code See_Comment [Auto mated message] The = 8727247025) system which g enerated this result transmit baldemar reference range : 32 - 66 mmHg. The refer ence range was not used to interpret this result as normal/abnormal . PO2, CORD (test code See_Comment [Autom ated message] The = 2362420959) system which g enerated this result transmit baldemar reference range : 10 - 30 mmHg. The refer ence range was not used to interpret this result as normal/abnormal . BICARBONATE, CORD See_Comment [Automate d message] The (test code = system which ge nerated this 5145169050) result transmit baldemar reference range : 17 - 27 mEq/L. The refe rence range was not used to interpret this result as normal/abnormal . [facility]ball[facility] CORD [id number] 00:34:53 Test Item Value Reference Range Interpretation Comments VENOUS BASE EXCESS, CORD mEq/L (test code = 6317479766) VENOUS PH, CORD (test 7.25-7.45 code = 9723755765) VENOUS PC02, CORD (test See_Comment H [Au tomated message] code = 1873665331) The syste m which generated this result transmitted ref erence range: 27 - 49 mmHg. The reference r blessing was not used to interpret this result as normal/abnor mal. VENOUS PO2, CORD (test See_Comment [Aut omated message] code = 5671809074) The syste m which generated this result transmitted ref erence range: 17 - 41 mmHg. The reference r blessing was not used to interpret this result as normal/abnor mal. VENOUS BICARBONATE, CORD See_Comment [A utomated message] (test code = 9579267890) The system which generated this result transmitted ref erence range: 12 - 29 mEq/L. The reference r blessing was not used to interpret this result as normal/abnor mal. Lab Interpretation (test Abnormal code = 96480-1) [facility]ballType and Screen - ONCE [id number] 15:06:12 Test Item Value Reference Range Interpretation Comments ABO & RH (test code B POSITIVE Performe d at [facility] [[email or web address]] = 20) Laboratory Serv [facility] Blood Bank3 [address] [facility] s [address]Kcjv Free: [phone] A No. [id number] IAT (test code = Negative Performed a t [facility] [[email or web address]] 1185) Laboratory [facility] Blood [facility] [address] [facility] [address]Ahoe Free: [phone] A No. [id number] [facility] URINALYSIS W SPECIFIC [id number] 14:00:00 Test Item Value Reference Range Interpretation Comments POCT U SP GRAV (test code = 3255) . 1.005-1.025 POCT PH U (test code = 3254) . 5-8 POCT U LEUK EST (test code = 3263) . Negative - Negative POCT U NIT (test code = 3262) . Negative - Negative POCT U PROT (test code = 3259) Trace Negative - Negative POCT U GLU (test code = 3256) Neg Negative - Negative POCT U KETONE (test code = 3258) . Negative - Negative POCT U UROBILI (test code = 3260) . 0.2-1 POCT U BILI (test code = 3261) . Negative - Negative POCT U BLD (test code = 3257) . Negative - Negative POCT U COLOR (test code = 3266) . POCT U APPEAR (test code = 3267) . [facility] URINALYSIS W SPECIFIC [id number] 14:55:00 Test Item Value Reference Range Interpretation Comments POCT U SP GRAV (test code = * 1.005-1.025 3255) POCT PH U (test code = 3254) * 5-8 POCT U LEUK EST (test code = * Negative - Negative 3263) POCT U NIT (test code = 3262) * Negative - Negative POCT U PROT (test code = 3259) negative Negative - Negative POCT U GLU (test code = 3256) negative Negative - Negative POCT U KETONE (test code = 3258) * Negative - Negative POCT U UROBILI (test code = * 0.2-1 3260) POCT U BILI (test code = 3261) * Negative - Negative POCT U BLD (test code = 3257) * Negative - Negative POCT U COLOR (test code = 3266) * POCT U APPEAR (test code = 3267) * Lab Interpretation (test code = Normal 25414-5) [facility] W SPECIFIC [id number] 13:35:00 Test Item Value Reference Range Interpretation Comments POCT U SP GRAV (test code = 3255) . 1.005-1.025 POCT PH U (test code = 3254) . 5-8 POCT U LEUK EST (test code = 3263) . Negative - Negative POCT U NIT (test code = 3262) . Negative - Negative POCT U PROT (test code = 3259) Trace Negative - Negative POCT U GLU (test code = 3256) Neg Negative - Negative POCT U KETONE (test code = 3258) . Negative - Negative POCT U UROBILI (test code = 3260) . 0.2-1 POCT U BILI (test code = 3261) . Negative - Negative POCT U BLD (test code = 3257) . Negative - Negative POCT U COLOR (test code = 3266) . POCT U APPEAR (test code = 3267) . [facility]
--- NOTE | 2023-06-17 23:00 | ER ---
Nurse's Notes [facility] Name: Raghavendra Torres Age: 28 yrs Sex: Female : 1995 Arrival Date: 06/17/2023 Time: 21:02 Bed 12 Private MD: Diagnosis: Acute sinusitis, unspecified Presentation: 06/17 21:17 Chief complaint: Patient states: cough,congestion with headache and left ear pain of pf1 5,onset 5 days. Patient stated has been exposed Flu B from her daughter. Patient stated took Tylenol 650 mg at 1700 and TheraFlu at 1500. Coronavirus screen: Vaccine status: Patient reports receiving the 2nd dose of the covid vaccine. Client denies travel out of the [place] in the last 14 days. Client presents with at least one sign or symptom that may indicate coronavirus-19. Ebola Screen: Patient negative for fever greater than or equal to 101.5 degrees Fahrenheit, and additional compatible Ebola Virus Disease symptoms. Initial Sepsis Screen: Does the patient meet any 2 criteria? No. Patient's initial sepsis screen is negative. Does the patient have a suspected source of infection? No. Patient's initial sepsis screen is negative. Risk Assessment: Do you want to hurt yourself or someone else? Patient reports no desire to harm self or others. 21:17 Method Of Arrival: Ambulatory pf1 21:17 Acuity: KIM 4 pf1 Triage Assessment: 21:30 General: see nurse assessment. pf1 Historical: - Allergies: 21:21 No Known Allergies; pf1 - PMHx: 21:21 None; pf1 - PSHx: 21:21 Appendectomy; pf1 - Immunization history:: Adult Immunizations up to date, Client reports receiving the 2nd dose of the Covid vaccine, Last tetanus immunization: < 5 years ago Flu vaccine is not up to date. - Social history:: Smoking status: Patient denies any tobacco usage or history of. Patient/guardian denies using alcohol, street drugs. Screenin:15 [facility] ED Fall Risk Assessment (Adult) History of falling in the last 3 months, pf1 including since admission No falls in past 3 months (0 pts) Confusion or Disorientation No (0 pts) Intoxicated or Sedated No (0 pts) Impaired Gait No (0 pts) Mobility Assist Device Used No (0 pt) Altered Elimination No (0 pt) Score/Fall Risk Level 0 - 2 = Low Risk Oriented to surroundings, Maintained a safe environment, Educated pt \T\ family on fall prevention, incl call for assistance when getting out of bed, Assessed \T\ reinforced patient's understanding of fall precautions, Provided non-skid footwear, Hourly rounding (assess needs \T\ fall precautionary measures) done, Used ambulatory aids as needed (educated on \T\ assisted with), Used gait belt as appropriate. Abuse screen: Denies threats or abuse. Nutritional screening: No deficits noted. Tuberculosis screening: No symptoms or risk factors identified. Assessment: 21:25 General: Appears in no apparent distress. comfortable, well groomed, well developed, pf1 Behavior is calm, cooperative, appropriate for age, quiet. 21:25 Pain: Complains of pain in headache, left ear pain and body aches Pain currently is 5 pf1 out of 10 on a pain scale. Neuro: Level of Consciousness is awake, alert, obeys commands, Oriented to person, place, time, situation, Reports headache. Cardiovascular: No deficits noted. Capillary refill < 3 seconds Patient's skin is warm and dry. Respiratory: Airway is patent Respiratory effort is even, unlabored, Respiratory pattern is regular, symmetrical, Parent/caregiver reports the patient having cough that is. GI: No deficits noted. No signs and/or symptoms were reported involving the gastrointestinal system. : No deficits noted. No signs and/or symptoms were reported regarding the genitourinary system. EENT: Reports nasal discharge pain in left ear. Derm: No deficits noted. No signs and/or symptoms reported regarding the dermatologic system. 22:30 Reassessment: Patient appears in no apparent distress at this time. Patient and/or pf1 family updated on plan of care and expected duration. Pain level reassessed. Patient is alert, oriented x 3, equal unlabored respirations, skin warm/dry/pink. Vital Signs: 21:17 BP 126 / 95; Pulse 90; Resp 18; Temp 97.9; Pulse Ox 100% on R/A; Weight 61.23 kg; pf1 Height 5 ft. 6 in. ; Pain 5/10; 22:23 BP 120 / 94; Pulse 86; Resp 16; Pulse Ox 100% on R/A; pf1 21:17 Body Mass Index 21.79 (61.23 kg, 167.64 cm) pf1 21:17 Pain Scale: Adult pf1 ED Course: 21:09 Patient arrived in ED. gm2 21:10 [facility] Orte[facility]C [facility]. kb 21:10 Lew Villa MD is Attending Physician. kb 21:21 Triage completed. pf1 21:30 Patient has correct armband on for positive identification. Bed in low position. Call pf1 light in reach. 21:30 Arm band placed on right wrist. pf1 22:01 COVID-19 SARS RT PCR Sent. pf1 22:01 Flu Sent. pf1 23:11 No provider procedures requiring assistance completed. Patient did not have IV access pf1 during this emergency room visit. 23:12 Provided Education on: OTC medication . pf1 Administered Medications: No medications were administered Medication: 23:12 VIS not applicable for this client. pf1 Outcome: 22:59 Discharge ordered by . kb 23:11 Discharged to home ambulatory, pf1 23:11 Condition: unchanged 23:11 Discharge instructions given to patient, Instructed on discharge instructions, follow up and referral plans. Demonstrated understanding of instructions, follow-up care, 23:12 Patient left the ED. pf1 Signatures: Rosanna Ortega FNP-C FNP-Nya Sharif RN RN pf1 Kandy Potter gm2
--- NOTE | 2023-06-17 23:00 | EDPHYS ---
Physician Documentation [facility] Name: Raghavendra Torres Age: 28 yrs Sex: Female : 1995 Arrival Date: 06/17/2023 Time: 21:02 Bed 12 Private MD: ED Physician Lew Villa HPI: 06/17 21:22 This 28 yrs old Female presents to ER via Ambulatory with complaints of Ear kb Pain, Flu Symptoms. 21:15 Patient is a 28-year-old female with no medical history who presents for headache, kb cough, congestion, ear pain for 2 days. Denies fever. States daughter had the flu last week.. Historical: - Allergies: 21:21 No Known Allergies; pf1 - PMHx: 21:21 None; pf1 - PSHx: 21:21 Appendectomy; pf1 - Immunization history:: Adult Immunizations up to date, Client reports receiving the 2nd dose of the Covid vaccine, Last tetanus immunization: < 5 years ago Flu vaccine is not up to date. - Social history:: Smoking status: Patient denies any tobacco usage or history of. Patient/guardian denies using alcohol, street drugs. ROS: 21:23 Constitutional: Negative for fever, chills, and weight loss, kb 21:23 ENT: Positive for ear pain, sinus congestion, 21:23 Respiratory: Positive for cough, 21:23 Neuro: Positive for headache, 21:23 All other systems are negative, Exam: 21:23 Constitutional: This is a well developed, well nourished patient who is awake, alert, kb and in no acute distress. Head/Face: Normocephalic, atraumatic. ENT: Moist Mucous membranes Cardiovascular: Regular rate Respiratory: Respirations even and unlabored. No increased work of breathing. Talking in full sentences Skin: Warm, dry with normal turgor. Normal color. MS/ Extremity: Pulses equal, no cyanosis. Neurovascular intact. Full, normal range of motion. Neuro: Awake and alert, GCS 15, oriented to person, place, time, and situation. Moves all extremities. Normal gait. 21:23 ENT: External ear(s): are unremarkable, Ear canal(s): are normal, TM's: are normal, Vital Signs: 21:17 BP 126 / 95; Pulse 90; Resp 18; Temp 97.9; Pulse Ox 100% on R/A; Weight 61.23 kg; pf1 Height 5 ft. 6 in. ; Pain 5/10; 22:23 BP 120 / 94; Pulse 86; Resp 16; Pulse Ox 100% on R/A; pf1 21:17 Body Mass Index 21.79 (61.23 kg, 167.64 cm) pf1 21:17 Pain Scale: Adult pf1 MDM: 21:10 Patient medically screened. kb 21:22 Differential diagnosis: Flu, COVID, sinusitis, allergic rhinitis. Data reviewed: vital kb signs, nurses notes. 22:58 I considered the following discharge prescriptions or medication management in the emergency department I discussed and recommended Over The Counter medications, Antibiotics: At this time antibiotics are not recommended. Counseling: I had a detailed discussion with the patient and/or guardian regarding the historical points, exam findings, and any diagnostic results supporting the discharge/admit diagnosis, lab results, the need for outpatient follow up, a family practitioner, to return to the emergency department if symptoms worsen or persist or if there are any questions or concerns that arise at home. 06/17 21:16 Order name: Flu; Complete Time: 22:59 kb 06/17 21:16 Order name: COVID-19 SARS RT PCR; Complete Time: 22:20 kb Administered Medications: No medications were administered Disposition: 06/18 02:28 Co-signature as Attending Physician, Lew Villa MD I reviewed the patient's care rn provided by the Advanced Practice Provider and agree with the diagnosis and treatment plan. Disposition Summary: 06/17/23 22:59 Discharge Ordered Notes: Location: Home Condition: Stable Diagnosis - Acute sinusitis, unspecified kb Followup: kb - With: Emergency Department - When: As needed - Reason: Worsening of condition Followup: kb - With: Private Physician - When: 2 - 3 days - Reason: Recheck today's complaints, Continuance of care, Re-evaluation by your physician Discharge Instructions: - Discharge Summary Sheet kb - Sinusitis, Adult, [id number] kb Forms: - Medication Reconciliation Form kb - Thank You Letter kb - Antibiotic Education kb - Prescription Opioid Use kb - Patient Portal Instructions kb - Leadership Thank You Letter kb Signatures: Dispatcher [employer] EDRosanna Lim, HEAT TREATER-C HEAT TREATER-Ckb VillaLew stoddard MD MD rn Finley, Pamala, RN RN pf1 Corrections: (The following items were deleted from the chart) 06/17 21:22 21:15 headache, cough, congestion, ear pain for 2 days. Denies fever. . kb kb
[2023-06-17 23:17] VITALS: TEMP 97.9; O2SAT 100
[2023-06-17 23:18] VITALS: BP 120/94
== END 2023-06-17 23:12 | disposition home or self-care (01) ==
LOC: ER 21:02
DX: J01.90 Acute sinusitis, unspecified (principal); R51.9 Headache, unspecified
CPT/HCPCS: 87635; 87804; 99283

== ENCOUNTER 2024-12-18 18:03 | Emergency (ER) | payer OTHER, SELFPAY ==
--- OUTSIDE RECORDS SUMMARY | 2024-12-18 18:09 | XMS REPORT | Continuity of Care Document ---
Author Name Unknown Address [address] [place] [address] [facility] [place] Address [address] [place] [address] Care Team Providers Care Instructional Design Technologist Name Role Phone Olivia Burrows Primary Care Physicia n [id number] Attending Clinician Unavailable AFSHIN BERRY Attending Clinician Unavailable [email or web address] Attending Clinician Unavaila OLIVIA Landers Attending Clinician Unavail able EVELIA POOLE Attending Clinician Unavailabl Olivia Ross Attending Clinician + UNKNOWN, ATTENDING Attending Clinician Unavailab FILIPPO Cooper Attending Clinician Unavailable Filippo Nino Attending Clinician [phone] Unknown, Attending Attending Clinician Unavailab VICENTA Doyle Attending Clinician Kandy Huang MD, Vicenta Attending Clinician + Ana Navarro MD Attending Clinician [phone] Carrington LARA, Usman Attending Clinician [phone] Jeannette Granado MD Attending Clinician [phone] 1, [facility] Us Room Attending Clinician Unavailab le Doctor Unassigned, [place] Attending Clinician U navailable Ultrasound, [facility] Attending Clinician UnavailBobo Shah MD Attending Clinician BOBO ORR Attending Clinician Unavailable BOBO ORR Attending Clinician Unavailable MAXINE MARC Attending Clinician Unav ailable Lab, [facility] Attending Clinician Unavailable Maxine Marc MD Attending Clinician + 1, [facility] Room Attending Clinician Unavailarben Jama 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 COPAY FOCUS 9 [id number] 2023 00:00:00 ESTHER PEREZ FROM [facility] [id number] [facility] [id number] 2021 00:00:00 Problems Condition Name Condition Details Condition Category Status Onset Date Resolution Date Last Treatment Date Treating Clinician Comments Source Other general counseling and advice for contracept dominique management Other general counseling and advice for contracept dominique management Disease Active 2021-07 00:00: 00 [facility] Urinary incontinen ce Urinary incontinen ce Disease Active 2021-07 00:00: 00 [facility] 39 weeks gestation of 39 weeks gestation of Disease Active 04-23 00:00: 00 [facility] Full-term premature rupture of membranes with onset of labor within 24 hours of rupture Full-term premature rupture of membranes with onset of labor within 24 hours of rupture Disease Active 04-23 00:00: 00 [facility] Thrombocyt openia affecting Thrombocyt openia affecting Disease Active 04-23 00:00: 00 [facility] Low-lying placenta Low-lying placenta Disease Active 12-04 00:00: 00 Overview: Formattin g of this note might be different from the original. FU anatomy and placental location at 32 wk.- resolved [facility] Vaginal bleeding in Vaginal bleeding in Disease Active 3- 00:00: 00 [facility] Routine follow-up Routine follow-up Disease Active 2- 00:00: 00 [facility] Supervisio n of high-risk Supervisio n of high-risk Disease Active 2- 00:00: 00 [facility] Allergies, Adverse Reactions, Alerts Allergy Name Allergy Type Status Severity Reaction(s) Onset Date Inactive Date Treating Clinician Comments Source NO KNOWN ALLERGIE S Drug Class Active [facility] Social History Social Habit Start Date Stop Date Quantity Comments Source Sexual orientation José scar Durham - External ASSERTION Not Tiff Durham - External Tobacco use and exposure 2024-06-01 00:00:00 2024-06-01 00:00:00 Smokeless tobacco non-user Tiff Durham - External Alcoholic beverage intake 2024-06-01 00:00:00 2024-06-01 00:00:00 Ex-drinker (finding) Tiff Durham - External History of Social function 2024-06-01 00:00:00 2024-06-01 00:00:00 Tiff Durham - External Sex 2023-06-15 18:32:47 2023-06-15 18:32:47 Female (finding) Tiff Durham - External Exposure to SARS-CoV-2 (event) 2022-05-26 00:00:00 2022-06-05 09:03:00 Not sure [facility] Alcohol intake 2021-12-17 00:00:00 2021-12-17 00:00:00 Current non-drinker of alcohol (finding) [facility] Tobacco Comment 2013-03-08 00:00:00 2013-03-08 00:00:00 Denies smoking exposure [facility] Sex assigned at 1995 00:00:00 1995 00:00:00 Tiff Seybold - External Smoking Status Start Date Stop Date Source Never smoked tobacco Tiff Durham - External Medications Ordered Medication Name Filled Medication Name Start Date Stop Date Current Medication? Ordering Clinician Indication Dosage Frequency Signature (SIG) Comments Components Source ondansetron 4 mg disintegrat ing tablet 2021-07 00:00: 00 Yes [id number] 4mg Take 1 tablet by mouth every 12 (twelve) hours as needed for Nausea and Vomiting (N/V). [facility] cefdinir 300 mg capsule 2021-07 00:00: 00 05-30 04:59 :00 No [id number] 300mg Take 1 capsule by mouth every 12 (twelve) hours for 7 days. [facility] phenazopyri dine (PYRIDIUM) 100 mg tablet 2021-07 00:00: 00 05-26 04:59 :00 No [id number] 200mg Take 2 tablets by mouth in the morning and 2 tablets at noon and 2 tablets in the evening. Do all this for 3 days. [facility] magnesium hydroxide (MILK OF MAGNESIA) 400 mg/5 mL suspension 30 mL 2021-07 14:00: 00 Yes 30mL 30 mL, Oral, DAILY, First dose on Wed04/25/22 at 0900, Until Discontinu ed, Routine [facility] docusate (COLACE) capsule 200 mg 04-24 14:00: 00 Yes 200mg 200 mg, Oral, DAILY, First dose (after last modificati on) on Wed04/24/22 at 0900, Until Discontinu ed, Routine [facility] polyethylen e glycol 3350 powder 17 g 04-24 14:00: 00 Yes 17g 17 g, Oral, DAILY, First dose on Wed04/24/22 at 0900, Until Discontinu ed, Routine [facility] simethicone (GAS RELIEF (SIMETHICON E)) chewable tablet 160 mg 04-24 06:00: 00 Yes 160mg 160 mg, Oral, PC+HS, First dose (after last modificati on) on Wed04/24/22 at 0100, Until Discontinu ed, Routine [facility] rho(D) immune globulin (RHOGAM) syringe 300 mcg 04-24 04:04: 31 Yes 300ug 300 mcg, Intramuscu lar, ONCE, For 1 dose, Conditiona l, Routine [facility] HYDROcodone -acetaminop hen (NORCO 5) 5-325 mg tablet 1 tablet 04-24 04:04: 27 Yes 1{tbl} 1 tablet, Oral, Q6HPRN, Starting on Wed04/23/22 at 2304, Until Discontinu ed, Routine, Pain (scale 7-10) [facility] ibuprofen (IBU) tablet 600 mg 04-24 04:04: 27 Yes 600mg 600 mg, Oral, Q6HPRN, Starting on Wed04/23/22 at 2304, Until Discontinu ed, Routine, Pain (scale 4-6) [facility] acetaminoph en (TYLENOL) tablet 650 mg 04-24 04:04: 27 Yes 650mg 650 mg, Oral, Q6HPRN, Starting on Wed04/23/22 at 2304, Until Discontinu ed, Routine, Pain (scale 1-3) [facility] diphenhydrA MINE (BENADRYL) tablet 25 mg 04-24 04:04: 27 Yes 25mg 25 mg, Oral, Q6HPRN, Starting on Wed04/23/22 at 2304, Until Discontinu ed, Routine, Sleep, Itching [facility] ondansetron (ZOFRAN (PF)) injection 4 mg 04-24 04:04: 27 Yes 4mg 4 mg, Slow IV Push, Q8HPRN, Starting on Wed04/23/22 at 2304, Until Discontinu ed, Routine, Nausea and Vomiting (N/V) [facility] benzocaine- menthol (DERMOPLAST ) 20-0.5 % topical spray 04-24 04:04: 27 Yes Topical, PRN, Starting on Wed04/23/22 at 2304, Until Discontinu ed, Routine, Perineum discomfort [facility] docusate (COLACE) capsule 200 mg 04-24 04:04: 27 04-24 05:50 :18 No 200mg 200 mg, Oral, QDAILYPRN, Starting on Wed04/23/22 at 2304, Until Wed04/24/22 at 0050, Routine, Constipati on [facility] ePHEDrine 25 mg/5 mL (5 mg/mL) syringe 04-24 02:10: 00 04-24 02:13 :44 No Slow IV Push, ONCE INTRA PROCEDURE, Starting on Wed04/23/22 at 2110, Until Wed04/23/22 at 2112, Routine, Intra-op [facility] PHENYLephri ne 1000 mcg/10 mL in 0.9% NaCl syringe 04-24 02:10: 00 04-24 02:13 :35 No Slow IV Push, ONCE INTRA PROCEDURE, Starting on Wed04/23/22 at 2110, Until Wed04/23/22 at 2112, Routine, Intra-op [facility] cefOXitin (MEFOXIN) 2 g in water for injection, sterile 20 mL SIVP syringe 04-24 02:05: 00 04-24 02:21 :00 No 2g 2 g, Intravenou s, ONCE, 1 dose, On Wed04/23/22 at 5, GAGAN
Re ason for Anti-Infec tive: Surgical Prophylaxi s
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
Duration of therapy: within 24 hours of surgery [facility] vitamin w/FA tablet 04-24 00:00: 00 Yes [id number] 1{tbl} Take 1 tablet by mouth in the morning. [facility] docusate 100 mg capsule 04-24 00:00: 00 Yes [id number] 200mg Take 2 capsules by mouth once daily as needed for Constipati on. [facility] ferrous sulfate 325 mg (65 mg iron) tablet 04-24 00:00: 00 Yes [id number] 325mg Take 1 tablet by mouth in the morning and 1 tablet in the evening. [facility] ibuprofen 600 mg tablet 04-24 00:00: 00 Yes [id number] 600mg Take 1 tablet by mouth every 6 (six) hours as needed (Pain). Take with food or milk. [facility] lactated ringers IV infusion 500 mL 04-23 18:15: 00 04-23 17:25 :00 No 500mL at 999 mL/hr, 500 mL, IV Infusion, ONCE, 1 dose, On Rhianna 04/23/22 at 1315, Routine [facility] ropivacaine 0.2 % (NAROPIN (PF)) epidural infusion 04-23 18:01: 00 04-24 02:01 :52 No Epidural, CONTINUOUS PRN, Starting on Rhianna 04/23/22 at 1301, Until Discontinu ed, Routine, Intra-op [facility] lidocaine-e pinephrine (XYLOCAINE W/EPINEPHRI NE) 1.5 %-1:200,000 injection 04-23 17:59: 00 04-24 02:01 :52 No Intraderma l, ONCE INTRA PROCEDURE, Starting on Rhianna 04/23/22 at 1259, Until Discontinu ed, Routine, Intra-op [facility] sodium citrate-cit jaspal acid (BICITRA) 500-334 mg/5 mL solution 30 mL 04-23 17:23: 04 04-23 17:44 :00 No 30mL 30 mL, Oral, PRE-PROCED URE ONCE, 1 dose, Starting on Rhianna 04/23/22 at 1223, Until Rhianna 04/23/22 at 1244, Routine, Surgery/Pr ocedure [facility] oxytocin (PITOCIN) 30 units in NS 500 mL IV infusion 04-23 15:42: 49 04-24 04:04 :30 No 2mU/min at 2-40 mL/hr, IV Infusion, TITRATE, Starting on Rhianna 04/23/22 at 1042, Until Rhianna 04/23/22 at 2304, GAGAN [facility] proMETHazin e (PHENERGAN) 25 mg in NS 50 mL IV piggyback (CNR) 04-23 15:15: 00 04-23 16:00 :00 No 25mg 25 mg, IV Piggyback, at 200 mL/hr Administer over 15 Minutes, ONCE, 1 dose, On Rhianna 04/23/22 at 1030, [facility] butorphanol (STADOL) injection 1 mg 04-23 15:15: 00 04-23 15:46 :00 No 1mg 1 mg, Intravenou s, ONCE, 1 dose, On Rhianna 04/23/22 at 1030, [facility] D5W-LR IV infusion 1,000 mL 04-23 14:15: 25 04-24 04:04 :30 No 1000mL at 1-125 mL/hr, IV Infusion, TITRATE, Starting on Rhianna 04/23/22 at 0915, Until Rhianna 04/23/22 at 2304, Routine [facility] multivitami n ( VITAMIN) tablet 08-27 00:00: 00 04-25 00:00 :00 No [id number] 1{tbl} Take 1 tablet by mouth daily. [facility] multivitami n ( VITAMIN) tablet 08-27 00:00: 00 04-25 00:00 :00 No [id number] 1{tbl} Take 1 tablet by mouth daily. [facility] Immunizations Ordered Immunization Name Filled Immunization Name Date Status Comments Source TDAP 2022-02-05 00:00:00 Completed [facility] TDAP 2022-02-05 00:00:00 Completed [facility] TDAP 2022-02-05 00:00:00 Completed [facility] TDAP 2022-02-05 00:00:00 Completed [facility] TDAP 2022-02-05 00:00:00 Completed [facility] TDAP 2022-02-05 00:00:00 Completed [facility] TDAP 2022-02-05 00:00:00 Completed [facility] TDAP 2022-02-05 00:00:00 Completed [facility] TDAP 2022-02-05 00:00:00 Completed [facility] TDAP 2022-02-05 00:00:00 Completed [facility] TDAP 2022-02-05 00:00:00 Completed [facility] SARS-COV-2 COVID-19 PFIZER VACCINE 2021-02-19 00:00:00 Completed [facility] SARS-COV-2 COVID-19 PFIZER VACCINE 2021-02-19 00:00:00 Completed [facility] SARS-COV-2 COVID-19 PFIZER VACCINE 2021-02-19 00:00:00 Completed [facility] SARS-COV-2 COVID-19 PFIZER VACCINE 2021-02-19 00:00:00 Completed [facility] SARS-COV-2 COVID-19 PFIZER VACCINE 2021-02-19 00:00:00 Completed [facility] SARS-COV-2 COVID-19 PFIZER VACCINE 2021-02-19 00:00:00 Completed [facility] SARS-COV-2 COVID-19 PFIZER VACCINE 2021-02-19 00:00:00 Completed [facility] SARS-COV-2 COVID-19 PFIZER VACCINE 2021-02-19 00:00:00 Completed [facility] SARS-COV-2 COVID-19 PFIZER VACCINE 2021-02-19 00:00:00 Completed [facility] SARS-COV-2 COVID-19 PFIZER VACCINE 2021-02-19 00:00:00 Completed [facility] SARS-COV-2 COVID-19 PFIZER VACCINE 2021-02-19 00:00:00 Completed [facility] SARS-COV-2 COVID-19 PFIZER VACCINE 2021-01-29 00:00:00 Completed [facility] SARS-COV-2 COVID-19 PFIZER VACCINE 2021-01-29 00:00:00 Completed [facility] SARS-COV-2 COVID-19 PFIZER VACCINE 2021-01-29 00:00:00 Completed [facility] SARS-COV-2 COVID-19 PFIZER VACCINE 2021-01-29 00:00:00 Completed [facility] SARS-COV-2 COVID-19 PFIZER VACCINE 2021-01-29 00:00:00 Completed [facility] SARS-COV-2 COVID-19 PFIZER VACCINE 2021-01-29 00:00:00 Completed [facility] SARS-COV-2 COVID-19 PFIZER VACCINE 2021-01-29 00:00:00 Completed [facility] SARS-COV-2 COVID-19 PFIZER VACCINE 2021-01-29 00:00:00 Completed [facility] SARS-COV-2 COVID-19 PFIZER VACCINE 2021-01-29 00:00:00 Completed [facility] SARS-COV-2 COVID-19 PFIZER VACCINE 2021-01-29 00:00:00 Completed [facility] SARS-COV-2 COVID-19 PFIZER VACCINE 2021-01-29 00:00:00 Completed [facility] Influenza Virus Vaccine - Whole 2010-08-22 00:00:00 Completed [facility] Influenza Virus Vaccine - Whole 2010-08-22 00:00:00 Completed [facility] H1n1 Vaccine 2009-06-25 00:00:00 Completed [facility] H1n1 Vaccine 2009-06-25 00:00:00 Completed [facility] H1n1 Vaccine 2009-06-25 00:00:00 Completed [facility] H1n1 Vaccine 2009-06-25 00:00:00 Completed [facility] H1n1 Vaccine 2009-06-25 00:00:00 Completed [facility] H1n1 Vaccine 2009-06-25 00:00:00 Completed [facility] H1n1 Vaccine 2009-06-25 00:00:00 Completed [facility] H1n1 Vaccine 2009-06-25 00:00:00 Completed [facility] H1n1 Vaccine 2009-06-25 00:00:00 Completed [facility] H1n1 Vaccine 2009-06-25 00:00:00 Completed [facility] H1n1 Vaccine 2009-06-25 00:00:00 Completed [facility] Meningococcal Vaccine 2009-01-31 00:00:00 Completed [facility] TDAP 2009-01-31 00:00:00 Completed [facility] Meningococcal Vaccine 2009-01-31 00:00:00 Completed [facility] TDAP 2009-01-31 00:00:00 Completed [facility] Meningococcal Vaccine 2009-01-31 00:00:00 Completed [facility] TDAP 2009-01-31 00:00:00 Completed [facility] Meningococcal Vaccine 2009-01-31 00:00:00 Completed [facility] TDAP 2009-01-31 00:00:00 Completed [facility] Meningococcal Vaccine 2009-01-31 00:00:00 Completed [facility] TDAP 2009-01-31 00:00:00 Completed [facility] Meningococcal Vaccine 2009-01-31 00:00:00 Completed [facility] TDAP 2009-01-31 00:00:00 Completed [facility] Meningococcal Vaccine 2009-01-31 00:00:00 Completed [facility] TDAP 2009-01-31 00:00:00 Completed [facility] Meningococcal Vaccine 2009-01-31 00:00:00 Completed [facility] TDAP 2009-01-31 00:00:00 Completed [facility] Meningococcal Vaccine 2009-01-31 00:00:00 Completed [facility] TDAP 2009-01-31 00:00:00 Completed [facility] Meningococcal Vaccine 2009-01-31 00:00:00 Completed [facility] TDAP 2009-01-31 00:00:00 Completed [facility] Meningococcal Vaccine 2009-01-31 00:00:00 Completed [facility] TDAP 2009-01-31 00:00:00 Completed [facility] HPV 2008-08-07 00:00:00 Completed [facility] HPV 2008-08-07 00:00:00 Completed [facility] HPV 2008-08-07 00:00:00 Completed [facility] HPV 2008-08-07 00:00:00 Completed [facility] HPV 2008-08-07 00:00:00 Completed [facility] HPV 2008-08-07 00:00:00 Completed [facility] HPV 2008-08-07 00:00:00 Completed [facility] HPV 2008-08-07 00:00:00 Completed [facility] HPV 2008-08-07 00:00:00 Completed [facility] HPV 2008-08-07 00:00:00 Completed [facility] HPV 2008-08-07 00:00:00 Completed [facility] HPV 2008-04-03 00:00:00 Completed [facility] HPV 2008-04-03 00:00:00 Completed [facility] HPV 2008-04-03 00:00:00 Completed [facility] HPV 2008-04-03 00:00:00 Completed [facility] HPV 2008-04-03 00:00:00 Completed [facility] HPV 2008-04-03 00:00:00 Completed [facility] HPV 2008-04-03 00:00:00 Completed [facility] HPV 2008-04-03 00:00:00 Completed [facility] HPV 2008-04-03 00:00:00 Completed [facility] HPV 2008-04-03 00:00:00 Completed [facility] HPV 2008-04-03 00:00:00 Completed [facility] HPV 2008-01-31 00:00:00 Completed [facility] HPV 2008-01-31 00:00:00 Completed [facility] HPV 2008-01-31 00:00:00 Completed [facility] HPV 2008-01-31 00:00:00 Completed [facility] HPV 2008-01-31 00:00:00 Completed [facility] HPV 2008-01-31 00:00:00 Completed [facility] HPV 2008-01-31 00:00:00 Completed [facility] HPV 2008-01-31 00:00:00 Completed [facility] HPV 2008-01-31 00:00:00 Completed [facility] HPV 2008-01-31 00:00:00 Completed [facility] HPV 2008-01-31 00:00:00 Completed [facility] HEPATITIS A 2006-08-30 00:00:00 Completed [facility] Varicella (varivax)(chicken pox) 2006-08-30 00:00:00 Completed [facility] HEPATITIS A 2006-08-30 00:00:00 Completed [facility] Varicella (varivax)(chicken pox) 2006-08-30 00:00:00 Completed [facility] HEPATITIS A 2006-08-30 00:00:00 Completed [facility] Varicella (varivax)(chicken pox) 2006-08-30 00:00:00 Completed [facility] HEPATITIS A 2006-08-30 00:00:00 Completed [facility] Varicella (varivax)(chicken pox) 2006-08-30 00:00:00 Completed [facility] HEPATITIS A 2006-08-30 00:00:00 Completed [facility] Varicella (varivax)(chicken pox) 2006-08-30 00:00:00 Completed [facility] HEPATITIS A 2006-08-30 00:00:00 Completed [facility] Varicella (varivax)(chicken pox) 2006-08-30 00:00:00 Completed [facility] HEPATITIS A 2006-08-30 00:00:00 Completed [facility] Varicella (varivax)(chicken pox) 2006-08-30 00:00:00 Completed [facility] HEPATITIS A 2006-08-30 00:00:00 Completed [facility] Varicella (varivax)(chicken pox) 2006-08-30 00:00:00 Completed [facility] HEPATITIS A 2006-08-30 00:00:00 Completed [facility] Varicella (varivax)(chicken pox) 2006-08-30 00:00:00 Completed [facility] HEPATITIS A 2006-08-30 00:00:00 Completed [facility] Varicella (varivax)(chicken pox) 2006-08-30 00:00:00 Completed [facility] HEPATITIS A 2006-08-30 00:00:00 Completed [facility] Varicella (varivax)(chicken pox) 2006-08-30 00:00:00 Completed [facility] HEPATITIS A 2006-02-24 00:00:00 Completed [facility] HEPATITIS A 2006-02-24 00:00:00 Completed [facility] HEPATITIS A 2006-02-24 00:00:00 Completed [facility] HEPATITIS A 2006-02-24 00:00:00 Completed [facility] HEPATITIS A 2006-02-24 00:00:00 Completed [facility] HEPATITIS A 2006-02-24 00:00:00 Completed [facility] HEPATITIS A 2006-02-24 00:00:00 Completed [facility] HEPATITIS A 2006-02-24 00:00:00 Completed [facility] HEPATITIS A 2006-02-24 00:00:00 Completed [facility] HEPATITIS A 2006-02-24 00:00:00 Completed [facility] HEPATITIS A 2006-02-24 00:00:00 Completed [facility] DTAP 2001-06-20 00:00:00 Completed [facility] MMR 2001-06-20 00:00:00 Completed [facility] Polio (IPV/OPV) 2001-06-20 00:00:00 Completed [facility] DTAP 2001-06-20 00:00:00 Completed [facility] MMR 2001-06-20 00:00:00 Completed [facility] Polio (IPV/OPV) 2001-06-20 00:00:00 Completed [facility] DTAP 2001-06-20 00:00:00 Completed [facility] MMR 2001-06-20 00:00:00 Completed [facility] Polio (IPV/OPV) 2001-06-20 00:00:00 Completed [facility] DTAP 2001-06-20 00:00:00 Completed [facility] MMR 2001-06-20 00:00:00 Completed [facility] Polio (IPV/OPV) 2001-06-20 00:00:00 Completed [facility] DTAP 2001-06-20 00:00:00 Completed [facility] MMR 2001-06-20 00:00:00 Completed [facility] Polio (IPV/OPV) 2001-06-20 00:00:00 Completed [facility] DTAP 2001-06-20 00:00:00 Completed [facility] MMR 2001-06-20 00:00:00 Completed [facility] Polio (IPV/OPV) 2001-06-20 00:00:00 Completed [facility] DTAP 2001-06-20 00:00:00 Completed [facility] MMR 2001-06-20 00:00:00 Completed [facility] [facility] Polio (IPV/OPV) 2001-06-20 00:00:00 Completed [facility] DTAP 2001-06-20 00:00:00 Completed [facility] MMR 2001-06-20 00:00:00 Completed [facility] Polio (IPV/OPV) 2001-06-20 00:00:00 Completed [facility] DTAP 2001-06-20 00:00:00 Completed [facility] MMR 2001-06-20 00:00:00 Completed [facility] Polio (IPV/OPV) 2001-06-20 00:00:00 Completed [facility] DTAP 2001-06-20 00:00:00 Completed [facility] MMR 2001-06-20 00:00:00 Completed [facility] Polio (IPV/OPV) 2001-06-20 00:00:00 Completed [facility] DTAP 2001-06-20 00:00:00 Completed [facility] MMR 2001-06-20 00:00:00 Completed [facility] Polio (IPV/OPV) 2001-06-20 00:00:00 Completed [facility] DTAP 1999-01-01 00:00:00 Completed [facility] Varicella (varivax)(chicken pox) 1999-01-01 00:00:00 Completed [facility] DTAP 1999-01-01 00:00:00 Completed [facility] Varicella (varivax)(chicken pox) 1999-01-01 00:00:00 Completed [facility] DTAP 1999-01-01 00:00:00 Completed [facility] Varicella (varivax)(chicken pox) 1999-01-01 00:00:00 Completed [facility] DTAP 1999-01-01 00:00:00 Completed [facility] Varicella (varivax)(chicken pox) 1999-01-01 00:00:00 Completed [facility] DTAP 1999-01-01 00:00:00 Completed [facility] Varicella (varivax)(chicken pox) 1999-01-01 00:00:00 Completed [facility] DTAP 1999-01-01 00:00:00 Completed [facility] Varicella (varivax)(chicken pox) 1999-01-01 00:00:00 Completed [facility] DTAP 1999-01-01 00:00:00 Completed [facility] Varicella (varivax)(chicken pox) 1999-01-01 00:00:00 Completed [facility] DTAP 1999-01-01 00:00:00 Completed [facility] Varicella (varivax)(chicken pox) 1999-01-01 00:00:00 Completed [facility] DTAP 1999-01-01 00:00:00 Completed [facility] Varicella (varivax)(chicken pox) 1999-01-01 00:00:00 Completed [facility] DTAP 1999-01-01 00:00:00 Completed [facility] Varicella (varivax)(chicken pox) 1999-01-01 00:00:00 Completed [facility] DTAP 1999-01-01 00:00:00 Completed [facility] Varicella (varivax)(chicken pox) 1999-01-01 00:00:00 Completed [facility] MMR 1998 00:00:00 Completed [facility] Polio (IPV/OPV) 1998 00:00:00 Completed [facility] HIB 4 Dose Schedule 1998 00:00:00 Completed [facility] MMR 1998 00:00:00 Completed [facility] Polio (IPV/OPV) 1998 00:00:00 Completed [facility] HIB 4 Dose Schedule 1998 00:00:00 Completed [facility] MMR 1998 00:00:00 Completed [facility] Polio (IPV/OPV) 1998 00:00:00 Completed [facility] HIB 4 Dose Schedule 1998 00:00:00 Completed [facility] MMR 1998 00:00:00 Completed [facility] Polio (IPV/OPV) 1998 00:00:00 Completed [facility] HIB 4 Dose Schedule 1998 00:00:00 Completed [facility] MMR 1998 00:00:00 Completed [facility] Polio (IPV/OPV) 1998 00:00:00 Completed [facility] HIB 4 Dose Schedule 1998 00:00:00 Completed [facility] MMR 1998 00:00:00 Completed [facility] Polio (IPV/OPV) 1998 00:00:00 Completed [facility] HIB 4 Dose Schedule 1998 00:00:00 Completed [facility] MMR 1998 00:00:00 Completed [facility] Polio (IPV/OPV) 1998 00:00:00 Completed [facility] HIB 4 Dose Schedule 1998 00:00:00 Completed [facility] MMR 1998 00:00:00 Completed [facility] Polio (IPV/OPV) 1998 00:00:00 Completed [facility] HIB 4 Dose Schedule 1998 00:00:00 Completed [facility] MMR 1998 00:00:00 Completed [facility] Polio (IPV/OPV) 1998 00:00:00 Completed [facility] HIB 4 Dose Schedule 1998 00:00:00 Completed [facility] MMR 1998 00:00:00 Completed [facility] Polio (IPV/OPV) 1998 00:00:00 Completed [facility] HIB 4 Dose Schedule 1998 00:00:00 Completed [facility] MMR 1998 00:00:00 Completed [facility] Polio (IPV/OPV) 1998 00:00:00 Completed [facility] HIB 4 Dose Schedule 1998 00:00:00 Completed [facility] DTAP 1997 00:00:00 Completed [facility] Hep B, Adol or Pedi Dosage 1997 00:00:00 Completed [facility] HIB 4 Dose Schedule 1997 00:00:00 Completed [facility] DTAP 1997 00:00:00 Completed [facility] Hep B, Adol or Pedi Dosage 1997 00:00:00 Completed [facility] HIB 4 Dose Schedule 1997 00:00:00 Completed [facility] DTAP 1997 00:00:00 Completed [facility] Hep B, Adol or Pedi Dosage 1997 00:00:00 Completed [facility] HIB 4 Dose Schedule 1997 00:00:00 Completed [facility] DTAP 1997 00:00:00 Completed [facility] Hep B, Adol or Pedi Dosage 1997 00:00:00 Completed [facility] HIB 4 Dose Schedule 1997 00:00:00 Completed [facility] DTAP 1997 00:00:00 Completed [facility] Hep B, Adol or Pedi Dosage 1997 00:00:00 Completed [facility] HIB 4 Dose Schedule 1997 00:00:00 Completed [facility] DTAP 1997 00:00:00 Completed [facility] Hep B, Adol or Pedi Dosage 1997 00:00:00 Completed [facility] HIB 4 Dose Schedule 1997 00:00:00 Completed [facility] DTAP 1997 00:00:00 Completed [facility] Hep B, Adol or Pedi Dosage 1997 00:00:00 Completed [facility] HIB 4 Dose Schedule 1997 00:00:00 Completed [facility] DTAP 1997 00:00:00 Completed [facility] Hep B, Adol or Pedi Dosage 1997 00:00:00 Completed [facility] HIB 4 Dose Schedule 1997 00:00:00 Completed [facility] DTAP 1997 00:00:00 Completed [facility] Hep B, Adol or Pedi Dosage 1997 00:00:00 Completed [facility] HIB 4 Dose Schedule 1997 00:00:00 Completed [facility] DTAP 1997 00:00:00 Completed [facility] Hep B, Adol or Pedi Dosage 1997 00:00:00 Completed [facility] HIB 4 Dose Schedule 1997 00:00:00 Completed [facility] DTAP 1997 00:00:00 Completed [facility] Hep B, Adol or Pedi Dosage 1997 00:00:00 Completed [facility] HIB 4 Dose Schedule 1997 00:00:00 Completed [facility] DTAP 1997 00:00:00 Completed [facility] Polio (IPV/OPV) 1997 00:00:00 Completed [facility] HIB 4 Dose Schedule 1997 00:00:00 Completed [facility] DTAP 1997 00:00:00 Completed [facility] Polio (IPV/OPV) 1997 00:00:00 Completed [facility] HIB 4 Dose Schedule 1997 00:00:00 Completed [facility] DTAP 1997 00:00:00 Completed [facility] Polio (IPV/OPV) 1997 00:00:00 Completed [facility] HIB 4 Dose Schedule 1997 00:00:00 Completed [facility] DTAP 1997 00:00:00 Completed [facility] Polio (IPV/OPV) 1997 00:00:00 Completed [facility] HIB 4 Dose Schedule 1997 00:00:00 Completed [facility] DTAP 1997 00:00:00 Completed [facility] Polio (IPV/OPV) 1997 00:00:00 Completed [facility] HIB 4 Dose Schedule 1997 00:00:00 Completed [facility] DTAP 1997 00:00:00 Completed [facility] Polio (IPV/OPV) 1997 00:00:00 Completed [facility] HIB 4 Dose Schedule 1997 00:00:00 Completed [facility] DTAP 1997 00:00:00 Completed [facility] Polio (IPV/OPV) 1997 00:00:00 Completed [facility] HIB 4 Dose Schedule 1997 00:00:00 Completed [facility] DTAP 1997 00:00:00 Completed [facility] Polio (IPV/OPV) 1997 00:00:00 Completed [facility] HIB 4 Dose Schedule 1997 00:00:00 Completed [facility] DTAP 1997 00:00:00 Completed [facility] Polio (IPV/OPV) 1997 00:00:00 Completed [facility] HIB 4 Dose Schedule 1997 00:00:00 Completed [facility] DTAP 1997 00:00:00 Completed [facility] Polio (IPV/OPV) 1997 00:00:00 Completed [facility] HIB 4 Dose Schedule 1997 00:00:00 Completed [facility] DTAP 1997 00:00:00 Completed [facility] Polio (IPV/OPV) 1997 00:00:00 Completed [facility] HIB 4 Dose Schedule 1997 00:00:00 Completed [facility] DTAP 1997 00:00:00 Completed [facility] Hep B, Adol or Pedi Dosage 1997 00:00:00 Completed [facility] Polio (IPV/OPV) 1997 00:00:00 Completed [facility] HIB 4 Dose Schedule 1997 00:00:00 Completed [facility] DTAP 1997 00:00:00 Completed [facility] Hep B, Adol or Pedi Dosage 1997 00:00:00 Completed [facility] Polio (IPV/OPV) 1997 00:00:00 Completed [facility] HIB 4 Dose Schedule 1997 00:00:00 Completed [facility] DTAP 1997 00:00:00 Completed [facility] Hep B, Adol or Pedi Dosage 1997 00:00:00 Completed [facility] Polio (IPV/OPV) 1997 00:00:00 Completed [facility] HIB 4 Dose Schedule 1997 00:00:00 Completed [facility] DTAP 1997 00:00:00 Completed [facility] Hep B, Adol or Pedi Dosage 1997 00:00:00 Completed [facility] Polio (IPV/OPV) 1997 00:00:00 Completed [facility] HIB 4 Dose Schedule 1997 00:00:00 Completed [facility] DTAP 1997 00:00:00 Completed [facility] Hep B, Adol or Pedi Dosage 1997 00:00:00 Completed [facility] Polio (IPV/OPV) 1997 00:00:00 Completed [facility] HIB 4 Dose Schedule 1997 00:00:00 Completed [facility] DTAP 1997 00:00:00 Completed [facility] Hep B, Adol or Pedi Dosage 1997 00:00:00 Completed [facility] Polio (IPV/OPV) 1997 00:00:00 Completed [facility] HIB 4 Dose Schedule 1997 00:00:00 Completed [facility] DTAP 1997 00:00:00 Completed [facility] Hep B, Adol or Pedi Dosage 1997 00:00:00 Completed [facility] Polio (IPV/OPV) 1997 00:00:00 Completed [facility] HIB 4 Dose Schedule 1997 00:00:00 Completed [facility] DTAP 1997 00:00:00 Completed [facility] Hep B, Adol or Pedi Dosage 1997 00:00:00 Completed [facility] Polio (IPV/OPV) 1997 00:00:00 Completed [facility] HIB 4 Dose Schedule 1997 00:00:00 Completed [facility] DTAP 1997 00:00:00 Completed [facility] Hep B, Adol or Pedi Dosage 1997 00:00:00 Completed [facility] Polio (IPV/OPV) 1997 00:00:00 Completed [facility] HIB 4 Dose Schedule 1997 00:00:00 Completed [facility] DTAP 1997 00:00:00 Completed [facility] Hep B, Adol or Pedi Dosage 1997 00:00:00 Completed [facility] Polio (IPV/OPV) 1997 00:00:00 Completed [facility] HIB 4 Dose Schedule 1997 00:00:00 Completed [facility] DTAP 1997 00:00:00 Completed [facility] Hep B, Adol or Pedi Dosage 1997 00:00:00 Completed [facility] Polio (IPV/OPV) 1997 00:00:00 Completed [facility] HIB 4 Dose Schedule 1997 00:00:00 Completed [facility] Hep B, Adol or Pedi Dosage 1997 00:00:00 Completed [facility] Hep B, Adol or Pedi Dosage 1997 00:00:00 Completed [facility] Hep B, Adol or Pedi Dosage 1997 00:00:00 Completed [facility] Hep B, Adol or Pedi Dosage 1997 00:00:00 Completed [facility] Hep B, Adol or Pedi Dosage 1997 00:00:00 Completed [facility] Hep B, Adol or Pedi Dosage 1997 00:00:00 Completed [facility] Hep B, Adol or Pedi Dosage 1997 00:00:00 Completed [facility] Hep B, Adol or Pedi Dosage 1997 00:00:00 Completed [facility] Hep B, Adol or Pedi Dosage 1997 00:00:00 Completed [facility] Hep B, Adol or Pedi Dosage 1997 00:00:00 Completed [facility] Hep B, Adol or Pedi Dosage 1997 00:00:00 Completed [facility] DTAP Unknown Completed [facility] HEPATITIS A Unknown Completed [facility] Hep B, Adol or Pedi Dosage Unknown Completed [facility] HPV Unknown Completed [facility] H1n1 Vaccine Unknown Completed [facility] Meningococcal Vaccine Unknown Completed [facility] MMR Unknown Completed [facility] Polio (IPV/OPV) Unknown Completed [facility] TDAP Unknown Completed [facility] Varicella (varivax)(chicken pox) Unknown Completed [facility] HIB 4 Dose Schedule Unknown Completed [facility] SARS-COV-2 COVID-19 PFIZER VACCINE Unknown Completed [facility] Vital Signs Vital Name Observation Time Observation Value Comments S ource Heart rate 2024-06-01 16:35:00 84 /min Mayra tejada maria alejandragary - External Body temperature 2024-06-01 16:35:00 36.61 Shoshana Tiff Armendarizold - External Respiratory rate 2024-06-01 16:35:00 16 /min Tiff Marva - External Body height 2024-06-01 16:35:00 167.6 cm Vesna Durham - External Body weight 2024-06-01 16:35:00 61.689 kg Vesna montoya Seybold - External BMI 2024-06-01 16:35:00 21.95 kg/m2 Vesna montoya Seybold - External Oxygen saturation in Arterial blood by Pulse oximetry 2024-06-01 16:35:00 99 /min Tiff Moss ld - External Systolic blood pressure 2024-06-01 16:35:00 106 mm[Hg] Tiff Moss ld - External Diastolic blood pressure 2024-06-01 16:35:00 70 mm[Hg] Tiff yudy ld - External Systolic blood pressure 2022-06-05 15:36:00 108 mm[Hg] [facility] Diastolic blood pressure 2022-06-05 15:36:00 72 mm[Hg] [facility] Heart rate 2022-06-05 15:36:00 85 /min [facility] Body temperature 2022-06-05 15:36:00 36.33 Shoshana [facility] Respiratory rate 2022-06-05 15:36:00 18 /min [facility] Body height 2022-06-05 15:36:00 167.6 cm [facility] Body weight 2022-06-05 15:36:00 59.96 kg [facility] BMI 2022-06-05 15:36:00 21.34 kg/m2 [facility] Systolic blood pressure 2022-05-22 22:36:00 130 mm[Hg] [facility] Diastolic blood pressure 2022-05-22 22:36:00 79 mm[Hg] [facility] Heart rate 2022-05-22 22:36:00 101 /min [facility] Body temperature 2022-05-22 22:36:00 37.11 Shoshana [facility] Respiratory rate 2022-05-22 22:36:00 16 /min [facility] Body height 2022-05-22 22:36:00 167.6 cm [facility] Body weight 2022-05-22 22:36:00 61.326 kg [facility] BMI 2022-05-22 22:36:00 21.82 kg/m2 [facility] Oxygen saturation in Arterial blood by Pulse oximetry 2022-05-22 22:36:00 98 /min [facility] Systolic blood pressure 2022-05-15 14:07:00 114 mm[Hg] [facility] Diastolic blood pressure 2022-05-15 14:07:00 68 mm[Hg] [facility] Heart rate 2022-05-15 14:07:00 72 /min [facility] Body temperature 2022-05-15 14:07:00 36.39 Shoshana [facility] Respiratory rate 2022-05-15 14:07:00 20 /min [facility] Body height 2022-05-15 14:07:00 167.6 cm [facility] Body weight 2022-05-15 14:07:00 62.687 kg [facility] BMI 2022-05-15 14:07:00 22.31 kg/m2 [facility] Systolic blood pressure 2022-04-25 21:46:00 107 mm[Hg] [facility] Diastolic blood pressure 2022-04-25 21:46:00 77 mm[Hg] [facility] Heart rate 2022-04-25 21:46:00 103 /min [facility] Body temperature 2022-04-25 21:46:00 36.67 Shoshana [facility] Respiratory rate 2022-04-25 21:46:00 18 /min [facility] Oxygen saturation in Arterial blood by Pulse oximetry 2022-04-25 21:46:00 98 /min [facility] Body weight 2022-04-23 13:00:00 73 kg [facility] BMI 2022-04-23 13:00:00 25.98 kg/m2 [facility] Body height 2022-04-23 12:50:00 167.6 cm [facility] Systolic blood pressure 2022-04-20 13:58:00 135 mm[Hg] [facility] Diastolic blood pressure 2022-04-20 13:58:00 88 mm[Hg] [facility] Heart rate 2022-04-20 13:58:00 103 /min [facility] Body temperature 2022-04-20 13:58:00 36.67 Shoshana [facility] Respiratory rate 2022-04-20 13:58:00 18 /min [facility] Body height 2022-04-20 13:58:00 167.6 cm [facility] Body weight 2022-04-20 13:58:00 73.029 kg [facility] BMI 2022-04-20 13:58:00 25.99 kg/m2 [facility] Systolic blood pressure 2022-04-15 14:45:00 135 mm[Hg] [facility] Diastolic blood pressure 2022-04-15 14:45:00 81 mm[Hg] [facility] Heart rate 2022-04-15 14:45:00 99 /min [facility] Body temperature 2022-04-15 14:45:00 37 Shoshana [facility] Respiratory rate 2022-04-15 14:45:00 18 /min [facility] Body height 2022-04-15 14:45:00 167.6 cm [facility] Body weight 2022-04-15 14:45:00 73.573 kg [facility] BMI 2022-04-15 14:45:00 26.18 kg/m2 [facility] Oxygen saturation in Arterial blood by Pulse oximetry 2022-04-15 14:45:00 99 /min [facility] Systolic blood pressure 2022-04-09 13:33:00 113 mm[Hg] [facility] Diastolic blood pressure 2022-04-09 13:33:00 73 mm[Hg] [facility] Heart rate 2022-04-09 13:33:00 89 /min [facility] Body temperature 2022-04-09 13:33:00 36.5 Shoshana [facility] Respiratory rate 2022-04-09 13:33:00 18 /min [facility] Body height 2022-04-09 13:33:00 165.1 cm [facility] Body weight 2022-04-09 13:33:00 71.867 kg [facility] BMI 2022-04-09 13:33:00 26.37 kg/m2 [facility] Procedures Procedure Date / Time Performed Performing Clinician Source POCT URINALYSIS W/O SPECIFIC GRAVITY 2022-06-05 15:57:00 Olivia Gibson [facility] POCT SARS-COV-2 ANTIGEN (BINAX NOW) 2022-05-22 23:00[facility] 2022-05-22 22:56:00 Unknown, Attend [facility] POCT MOLECULAR STREP 2022-05-22 22:53:00 Unknown, Attmelody merida [facility] POCT URINALYSIS 2022-05-22 22:49:00 Kenna Cobb [facility] CBC WITH DIFF 2022-04-24 09:55:00 Solange Harris [facility] CBC WITH DIFF 2022-04-24 02:12:00 Maral Loomis [facility] VENOUS CORD GAS 2022-04-24 00:26:00 Odilia Navarro [facility] CENTRAL NEURAXIAL BLOCK 2022-04-23 18:02:48 Usman Shultz [facility] CBC WITH DIFF 2022-04-23 14:36:00 Hedy Orantes [facility] HEPATITIS B SURFACE ANTIGEN 2022-04-23 14:24:00 [facility] HIV 1/2 AG-AB WITH REFLEX 2022-04-23 14:24:00 Hedy Orantes [facility] GALV ONLY - SYPHILIS IGG/IGM 2022-04-23 14:24:00 [facility] HB ABO GROUPING 2022-04-23 14:23:00 Odilia Navarro [facility] RHO (D) IMMUNE GLOBULIN 2022-04-23 14:23:00 Solange Harris [facility] POCT URINALYSIS 2022-04-20 14:00:00 Olivia Gibson [facility] POCT URINALYSIS 2022-04-15 14:54:00 Olivia Gibson [facility] POCT URINALYSIS 2022-04-09 13:35:00 Olivia Gibson [facility] Encounters Start Date/Time End Date/Time Encounter Type Admission Type [facility]ending [facility] Care Facility Care Department Encounter ID Source 2024-06-01 11:45:00 2024-06-01 11:45:00 Outpatient [id number] TIFF LONG [id number] Tiff Durham 2024-06-01 11:00:00 2024-06-01 11:00:00 [id number]:00:00 2023-10-31 00:00:00 Outpatient GC_GCBZW_Ka diyala_S [facility] [id number] [facility] 2023-10-03 00:00:00 2023-10-03 00:00:00 Outpatient GC_GCBZW_Ka diyala_S PRIV PRIV [id number] [facility] 2023-09-06 00:00:00 2023-09-06 00:00:00 Outpatient GC_GCBZW_Ka diyala_S PRIV PRIV [id number] [facility] 2023-09-05 00:00:00 2023-09-05 00:00:00 Outpatient GC_GCBZW_Ka diyala_S PRIV PRIV [id number] [facility] 2023-08-08 00:00:00 2023-08-08 00:00:00 Outpatient GC_GCBZW_Ka diyala_S PRIV PRIV [id number] [facility] 2023-07-11 00:00:00 2023-07-11 00:00:00 Outpatient GC_GCBZW_Ka diyala_S PRIV PRIV [id number] [facility] 2023-06-13 00:00:00 2023-06-13 00:00:00 Outpatient GC_GCBZW_Ka diyala_S PRIV PRIV [id number] [facility] 2023-06-07 09:15:00 2023-06-07 09:15:00 Outpatient OLIVIA BORRERO [facility] [id number] [facility] 2023-05-27 00:00:00 2023-05-27 00:00:00 Outpatient GC_GCBZW_Ka diyala_S PRIV PRIV [id number] [facility] 2023-05-13 00:00:00 2023-05-13 00:00:00 Outpatient GC_GCBZW_Ka diyala_S PRIV PRIV [id number] [facility] 2023-05-12 00:00:00 2023-05-12 00:00:00 Outpatient GC_GCBZW_Ka diyala_S PRIV PRIV [id number] [facility] 2023-05-11 00:00:00 2023-05-11 00:00:00 Outpatient GC_GCBZW_Ka diyala_S PRIV PRIV [id number] [facility] 2023-04-14 00:00:00 2023-04-14 00:00:00 Outpatient GC_GCBZW_Ka diyala_S PRIV PRIV [id number] [facility] 2023-03-30 00:00:00 2023-03-30 00:00:00 Outpatient GC_GCBZW_Ka diyala_S PRIV PRIV [id number] [facility] 2023-03-17 00:00:00 2023-03-17 00:00:00 Outpatient GC_GCBZW_Ka diyala_S PRIV PRIV [id number] [facility] 2023-03-08 00:00:00 2023-03-08 00:00:00 Outpatient GC_GCBZW_Ka diyala_S PRIV PRIV [id number] [facility] 2023-03-01 00:00:00 2023-03-01 00:00:00 Outpatient GC_GCBZW_Ka diyala_S PRIV PRIV [id number] [facility] 2023-02-15 00:00:00 2023-02-15 00:00:00 Outpatient GC_GCBZW_Ka diyala_S PRIV PRIV [id number] [facility] 2022 08:30:00 2022 08:30:00 Outpatient R EVELIA POOLE [facility] [id number] [facility] 2022-06-05 09:15:00 2022-06-05 10:24:47 Outpatient R OLIVIA GIBSON [facility] [id number] [facility] 2022-06-05 09:15:00 2022-06-05 10:24:47 Office Visit Olivia Gibson [facility] 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 [facility] 1.2.840.114 350.1.13.10 4.2.7.2.686 [id number] [facility] 2022-05-22 19:00:00 2022-05-22 19:00:00 Outpatient R UNKNOWN, ATTENDING [facility] [id number] [facility] 2022-05-22 17:20:00 2022-05-22 18:40:47 Outpatient R FILIPPO AL [facility] [id number] [facility] 2022-05-22 17:20:00 2022-05-22 17:40:00 Urgent Care Filippo Al B Unknown, Attending [facility] 1.840.114 350.1.13.10 4.2.7.2.686 [id number] [facility] 2022-05-22 00:00:00 2022-05-22 00:00:00 Telephone Olivia Gibson [facility] 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 [facility] 1.840.114 350.1.13.10 4.2.7.2.686 [id number] [facility] 2022-05-15 09:00:00 2022-05-15 09:29:29 Outpatient R OLIVIA GIBSON [facility] [id number] [facility] 2022-05-15 09:00:00 2022-05-15 09:29:29 Routine Visit Olivia Gibson [facility] 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 [facility] 1.840.114 350.1.13.10 4.2.7.2.686 [id number] [facility] 2022-04-29 00:00:00 2022-04-29 00:00:00 Telephone Olivia Gibson [facility] 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 [facility] 1..840.114 350.1.13.10 4.2.7.2.686 [id number] [facility] 2022-04-23 07:34:00 2022-04-25 19:33:00 Inpatient P VICENTA BIRD [facility] TRIPP [id number] [facility] 2022-04-23 07:34:00 2022-04-25 19:33:00 Hospital Encounter Vicenta Bird Nkechinyere [facility] 1.84.114 350.1.13.10 4.2.7.2.686 [id number] [facility] 2022-04-23 12:46:00 2022-04-23 21:12:00 Anesthesia Event Usman Shultz Stefanie [facility] 1..114 350.1.13.10 4.2.7.2.686 [id number] [facility] 2022-04-20 08:45:00 2022-04-20 09:28:43 Outpatient R OLIVIA GIBSON [facility] [id number] [facility] 2022-04-20 08:45:00 2022-04-20 09:28:43 Routine Visit Olivia Gibson [facility] 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 [facility] 1.840.114 350.1.13.10 4.2.7.2.686 [id number] [facility] 2022-04-15 09:45:00 2022-04-15 10:21:34 Outpatient R OLIVIA GIBSON [facility] [id number] [facility] 2022-04-15 09:45:00 2022-04-15 10:21:34 Routine Visit Olivia Gibson [facility] 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 [facility] 1.840.114 350.1.13.10 4.2.7.2.686 [id number] [facility] 2022-04-09 08:30:00 2022-04-09 08:45:00 Routine Visit Olivia Gibson [facility] 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 [facility] 1..840.114 350.1.13.10 4.2.7.2.686 [id number] [facility] 2022-04-09 08:30:00 2022-04-09 08:30:00 Outpatient R RENEERAFAELAOLIVIA [facility] [id number] [facility] 2022-04-09 08:30:00 2022-04-09 08:30:00 Outpatient R RENEERAFAELAOLIVIA [facility] [id number] [facility] 2022-04-03 00:00:00 2022-04-03 00:00:00 Telephone Olivia Gibson [facility] 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 [facility] 1..840.114 350.1.13.10 4.2.7.2.686 [id number] [facility] 2022-04-02 09:15:00 2022-04-02 09:15:00 Outpatient P [facility] [id number] [facility] 2022-04-02 08:15:00 2022-04-02 08:57:41 Outpatient R RENEERAFAELAOLIVIA [facility] [id number] [facility] 2022-04-02 08:15:00 2022-04-02 08:57:41 Routine Visit Olivia Gibson [facility] 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 [facility] 1..840.114 350.1.13.10 4.2.7.2.686 [id number] [facility] 2022-04-02 08:15:00 2022-04-02 08:57:41 Outpatient R ARTHUR OLIVIA [facility] [id number] [facility] 2022-04-02 08:15:00 2022-04-02 08:15:00 Outpatient R OLIVIA GIBSON [facility] [id number] [facility] 2022-03-24 00:00:00 2022-03-24 00:00:00 Abstract Olivia Gibson [facility] 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 [facility] 1.2.840.114 350.1.13.10 4.2.7.2.686 [id number] [facility] 2022-03-23 11:15:00 2022-03-23 12:02:08 Main Galley Scullion Visit 1, [facility] Room Vicenta Bird [facility] 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 [facility] 1.840.114 350.1.13.10 4.2.7.2.686 [id number] [facility] 2022-03-23 11:15:00 2022-03-23 11:15:00 Outpatient P [facility] [id number] [facility] 2022-03-23 11:15:00 2022-03-23 11:15:00 Outpatient P FARR SOBIA Davila YADAV [facility] [id number] [facility] 2022-03-19 10:45:00 2022-03-19 11:43:06 Outpatient R OLIVIA GIBSON [facility] [id number] [facility] 2022-03-19 10:45:00 2022-03-19 11:43:06 Routine Visit Olivia Gibson [facility] 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 [facility] 1.2840.114 350.1.13.10 4.2.7.2.686 [id number] 107 [id number] [facility] 2022-03-05 10:45:00 2022-03-05 11:00:00 Routine Visit Olivia Gibson [facility] 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 [facility] 1.2.840.114 350.1.13.10 4.2.7.2.686 [id number] [facility] 2022-03-05 10:45:00 2022-03-05 10:45:00 Outpatient R OLIVIA GIBSON [facility] [id number] [facility] 2022-03-05 10:45:00 2022-03-05 10:45:00 Outpatient R OLIVIA GBISON [facility] [id number] [facility] 2022-03-05 09:00:00 2022-03-05 09:00:00 Outpatient P [facility] [id number] [facility] 2022-02-27 00:00:00 2022-02-27 00:00:00 Orders Only Doctor Unassigned, [place] [facility] 1.2.840.114 350.1.13.10 4.2.7.2.686 [id number] [facility] 2022-02-19 09:45:00 2022-02-19 10:53:59 Outpatient R OLIVIA GIBSON [facility] [id number] [facility] 2022-02-19 09:45:00 2022-02-19 10:53:59 Routine Visit Olivia Gibson [facility] 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 [facility] 1.2.840.114 350.1.13.10 4.2.7.2.686 [id number] [facility] 2022-02-19 09:45:00 2022-02-19 09:45:00 Outpatient R OLIVIA GIBSON [facility] [id number] [facility] 2022-02-05 10:30:00 2022-02-05 11:51:33 Outpatient R OLIVIA GIBSON [facility] [id number] [facility] 2022-02-05 10:30:00 2022-02-05 11:51:33 Outpatient R OLIVIA GIBSON [facility] [id number] [facility] 2022-02-05 10:30:00 2022-02-05 11:51:33 Routine Visit AkinsipeWilliamOlivia C [facility] 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 [facility] 1.2.840.114 350.1.13.10 4.2.7.2.686 [id number] [facility] 2022-02-05 10:30:00 2022-02-05 10:30:00 Outpatient R ARTHUR OLIVIA JOSEPH [facility] [id number] [facility] 2022-01-16 00:00:00 2022-01-16 00:00:00 Telephone ReneerafaelaOlivia Luisito [facility] 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 [facility] 1.2.840.114 350.1.13.10 4.2.7.2.686 [id number] [facility] 2022-01-15 00:00:00 2022-01-15 00:00:00 Patient Secure Msg Arthur Olivia Jorge [facility] 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 [facility] 1.2840.114 350.1.13.10 4.2.7.2.686 [id number] 107 [id number] [facility] 2022-01-14 09:30:00 2022-01-14 10:21:42 Outpatient R CHANELCASHRAFAELA OLIVIA [facility] [id number] [facility] 2022-01-14 09:30:00 2022-01-14 10:21:42 Routine Visit Olivia Gibson [facility] 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 [facility] 1.2.840.114 350.1.13.10 4.2.7.2.686 [id number] 107 [id number] [facility] 2021-12-19 00:00:00 2021-12-19 00:00:00 Telephone ArthurWilliamOlivia C [facility] 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 [facility] 1.2.840.114 350.1.13.10 4.2.7.2.686 [id number] [facility] 2021-12-17 09:15:00 2021-12-17 09:52:06 Outpatient R OLIVIA GIBSON [facility] [id number] [facility] 2021-12-17 09:15:00 2021-12-17 09:52:06 Routine Visit Olivia Gibson [facility] 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 [facility] 1.0.114 350.1.13.10 4.2.7.2.686 [id number] 107 [id number] [facility] 2021-12-04 10:00:00 2021-12-04 11:00:00 Main Galley Scullion Visit Ultrasound, Bobo Mireles [facility] 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 [facility] ..114 350.1.13.10 4.2.7.2.686 [id number] [facility] 2021-12-04 10:00:00 2021-12-04 10:00:00 Outpatient P BOBO ORR SANGEETA [facility] [id number] [facility] 2021-12-04 00:00:00 2021-12-04 00:00:00 Abstract Olivia Gibson [facility] 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 [facility] ..114 350.1.13.10 4.2.7.2.686 [id number] [facility] 2021-11-19 09:30:00 2021-11-19 10:05:47 Outpatient R OLIVIA GIBSON [facility] [id number] [facility] 2021-11-19 09:30:00 2021-11-19 10:05:47 Routine Visit Olivia Gibson [facility] 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 [facility] 1.0.114 350.1.13.10 4.2.7.2.686 [id number] 107 [id number] [facility] 2021-10-22 10:45:00 2021-10-22 11:09:58 Outpatient R OLIVIA GIBSON [facility] [id number] [facility] 2021-10-22 10:45:00 2021-10-22 11:09:58 Routine Visit Olivia Gibson [facility] 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 [facility] 1..840.114 350.1.13.10 4.2.7.2.686 [id number] 107 [id number] [facility] 2021-10-20 14:45:00 2021-10-20 15:21:13 Outpatient R MAXINE MARC [facility] [id number] [facility] 2021-10-20 14:45:00 2021-10-20 15:21:13 Main Galley Scullion Visit Lab, [facility] Benedicto MarcFreeman [facility] 1.840.114 350.1.13.10 4.2.7.2.686 [id number] [facility] 2021-10-20 14:00:00 2021-10-20 15:05:36 Main Galley Scullion Visit 1, [facility] Room Maxine Marc [facility] 1..840.114 350.1.13.10 4.2.7.2.686 [id number] [facility] 2021-10-20 14:00:00 2021-10-20 14:00:00 Outpatient P [facility] [id number] [facility] 2021-10-20 00:00:00 2021-10-20 00:00:00 Case Management Donna Jama [facility] 1.840.114 350.1.13.10 4.2.7.2.686 [id number] [facility] 2021-10-20 00:00:00 2021-10-20 00:00:00 Abstract William Gibsonservando Jorge [facility] 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 [facility] 1..840.114 350.1.13.10 4.2.7.2.686 [id number] [facility] 2021-09-26 10:30:00 2021-09-26 14:28:20 Main Galley Scullion Visit Lab, [facility] Olivia Jorge [facility] 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 [facility] 1..840.114 350.1.13.10 4.2.7.2.686 [id number] [facility] 2021-09-26 10:30:00 2021-09-26 10:30:00 Outpatient R OLIVIA GIBSON [facility] [id number] [facility] 2021-09-25 15:00:00 2021-09-25 15:00:00 Outpatient R [facility] [id number] [facility] 2021-09-25 13:00:00 2021-09-25 13:00:00 Outpatient R OLIVIA GIBSON [facility] [id number] [facility] 2021-09-24 10:30:00 2021-09-24 11:27:19 Routine Visit Olivia Gibson [facility] 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 [facility] 1..840.114 350.1.13.10 4.2.7.2.686 [id number] [facility] 2021-09-24 10:30:00 2021-09-24 11:27:19 Outpatient R OLIVIA GIBSON [facility] [id number] [facility] 2021-09-24 10:30:00 2021-09-24 10:30:00 Outpatient R OLIVIA GIBSON [facility] [id number] [facility] 2021-09-24 10:30:00 2021-09-24 10:30:00 Outpatient R OLIVIA GIBSON [facility] [id number] [facility] 2021-09-17 00:00:00 2021-09-17 00:00:00 Telephone Olivia Gibson [facility] 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 [facility] 1.84.114 350.1.13.10 4.2.7.2.686 [id number] [facility] 2021-09-01 00:00:00 2021-09-01 00:00:00 Telephone Olivia Gibson [facility] 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 [facility] 1..114 350.1.13.10 4.2.7.2.686 [id number] [facility] 2021-08-27 13:30:00 2021-08-27 14:40:54 Outpatient R OLIVIA GIBSON [facility] [id number] [facility] 2021-08-27 13:30:00 2021-08-27 14:40:54 Outpatient R OLIVIA GIBSON [facility] [id number] [facility] 2021-08-27 13:30:00 2021-08-27 14:40:54 Initial Visit Olivia Gibson [facility] 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 [facility] 1..114 350.1.13.10 4.2.7.2.686 [id number] [facility] 2021-08-27 13:00:00 2021-08-27 13:00:00 Outpatient R OLIVIA GIBSON [facility] [id number] [facility] 2021-08-27 00:00:00 2021-08-27 00:00:00 Orders Only Doctor Unassigned, [place] [facility] 1.84.114 350.1.13.10 4.2.7.2.686 [id number] [facility] Results Test Description Test Time Test Comments Results Result Co mments Source [facility] URINALYSIS W/O SPECIFIC [id number] 15:57:00* Test Item Value Reference Range Interpretation Comme nts POCT PH U (test code = 3254) 6 mg/dl 5-8 POCT U LEUK EST (test code = 3263) 1+ Negative - Negative POCT U NIT (test code = 3262) Neg Negative - Negati ve POCT U PROT (test code = 3259) Trace Negative - Negat dominique POCT U GLU (test code = 3256) Neg Negative - Negati ve POCT U KETONE (test code = 3258) None Negative - Neg ative POCT U BLD (test code = 3257) Trace Negative - Negati ve [facility] URINALYSIS W/O SPECIFIC [id number] 15:57:00* Test Item Value Reference Range Interpretation Comme nts POCT PH U (test code = 3254) 6 mg/dl 5-8 POCT U LEUK EST (test code = 3263) 1+ Negative - Negative POCT U NIT (test code = 3262) Neg Negative - Negati ve POCT U PROT (test code = 3259) Trace Negative - Negat dominique POCT U GLU (test code = 3256) Neg Negative - Negati ve POCT U KETONE (test code = 3258) None Negative - Neg ative POCT U BLD (test code = 3257) Trace Negative - Negati ve [facility] SARS-COV-2 ANTIGEN (BINAX NOW)2022-05-22 23:15:00* Test Item Value Reference Range Interpretation Comme nts POCT SARS-COV-2 ANTIGEN (cassandra t code = 70384-9) Not Detected Not Detected On board controls acceptable with C Line (test code = 3574) Yes Lab Interpretation (test cod e = 05850-3) Normal [facility] MOLECULAR [id number] 23:07:40* Test Item Value Reference Range Interpretation Comme nts POCT Molecular FluA (test co de = 78580-1) Negative Negative POCT Molecular FluB (test co de = 00788-3) Negative Negative Lab Interpretation (test cod e = 08767-0) Normal [facility] MOLECULAR [id number] 23:00:43* Test Item Value Reference Range Interpretation Comme nts POCT Molecular Strep (test c ode = 45879-8) Negative Negative Lab Interpretation (test cod e = 38800-4) [facility] [id number] 22:55:00* Test Item Value Reference Range Interpretation Comme nts POCT U SP GRAV (test code = 3255) azo stained 1.005-1.025 POCT PH U (test code = 3254) azo stained 5-8 POCT U LEUK EST (test code = 3263) azo stained Negative - Negative POCT U NIT (test code = 3262) azo stained Negative - Negative POCT U PROT (test code = 3259) azo stained Negative - Negative POCT U GLU (test code = 3256) azo stained Negative - Negative POCT U KETONE (test code = 3258) azo stained Negative - Negative POCT U UROBILI (test code = 3260) azo stained 0.2-1 POCT U BILI (test code = 3261) azo stained Negative - Negative POCT U BLD (test code = 3257) azo stained Negative - Negative POCT U COLOR (test code = 3266) azo stained POCT U APPEAR (test code = 3267) azo stained GERRY (test code = GERRY) accurate development and interpretation of all internal controls [facility] IMMUNE [id number] 04:05:46* Test Item Value Reference Range Interpretation Comme nts RHIG CANDIDATE? (test code = 5055) No- see comment Patient is not a candidate for RhIg- Patient is Rh Positive.Performed at [facility] Laboratory Services - [facility] Blood [address] [place] [id number] Free: [phone] No. [id number] [facility] WITH [id number] 02:21:31* Test Item Value Reference Range Interpretation Comme nts WBC (test code = 6690-2) See_Comment H [Automated message] The system which generated this result transmitted reference range: 4.30 - 11.10 10*3/?L. The reference range was not used to interpret this result as normal/abnormal. RBC (test code = 789-8) See_Comment L [Automated message] The system which generated this result transmitted reference range: 3.93 - 5.25 10*6/?L. The reference range was not used to interpret this result as normal/abnormal. HGB (test code = 718-7) 9.5 g/dL 11.6-15 L HCT (test code = 4544-3) 29.3 % 35.7-45.2 L MCV (test code = 787-2) 88.0 fL 80.6-95.5 MCH (test code = 785-6) 28.5 pg 25.9-32.8 MCHC (test code = 786-4) 32.4 g/dL 31.6-35.1 RDW-SD (test code = 70210-1) 44.4 fL 39-49.9 RDW-CV (test code = 788-0) 13.8 % 12-15.5 PLT (test code = 777-3) See_Comment L [Automated message] The system which generated this result transmitted reference range: 166 - 358 10*3/?L. The reference range was not used to interpret this result as normal/abnormal. MPV (test code = 80486-7) 11.2 fL 9.5-12.9 NRBC/100 WBC (test code = 4587401831) See_Comment [Automated message] The system which generated this result transmitted reference range: 0.0 - 10.0 /100 WBCs. The reference range was not used to interpret this result as normal/abnormal. NRBC x10^3 (test code = 8754276849) See_Comment [Automated message] The system which generated this result transmitted reference range: 10*3/?L. The reference range was not used to interpret this result as normal/abnormal. GRAN MAT (NEUT) % (test code = 770-8) 82.7 % IMM GRAN % (test code = 2286242069) 0.40 % LYMPH % (test code = 736-9) 8.8 % MONO % (test code = 5905-5) 7.9 % EOS % (test code = 713-8) 0.0 % BASO % (test code = 706-2) 0.2 % GRAN MAT x10^3(ANC) (test code = 0112927261) 14.02 10*3/uL 1.88-7.09 H IMM GRAN x10^3 (test code = 1938878398) 0.07 10*3/uL 0-0.06 H LYMPH x10^3 (test code = 731-0) 1.49 10*3/uL 1.32-3.29 MONO x10^3 (test code = 742-7) 1.33 10*3/uL 0.33-0.92 H EOS x10^3 (test code = 711-2) 0.03-0.39 L BASO x10^3 (test code = 704-7) 0.03 10*3/uL 0.01-0.07 Lab Interpretation (test code = 62332-3) Abnormal [facility] [id number] 00:35:34* Test Item Value Reference Range Interpretation Comme nts BASE EXCESS, CORD (test code = 9468041362) mEq/L AC PH, CORD (BEAKER) (test code = 4372844493) 7.18-7.38 PC02, CORD (test code = 8702498166) See_Comment [Automated messa ge] The system which generated this result transmitted reference range: 32 - 66 mmHg. The reference range was not used to interpret this result as normal/abnormal. PO2, CORD (test code = [id number]) See_Comment [Automated messa ge] The system which generated this result transmitted reference range: 10 - 30 mmHg. The reference range was not used to interpret this result as normal/abnormal. BICARBONATE, CORD (test code = [id number]) See_Comment [Automated messa ge] The system which generated this result transmitted reference range: 17 - 27 mEq/L. The reference range was not used to interpret this result as normal/abnormal. [id number]:34:53* Test Item Value Reference Range Interpretation Comme nts VENOUS BASE EXCESS, CORD (test code = [id number]) mEq/L VENOUS PH, CORD (test code = [id number]) 7.25-7.45 VENOUS PC02, CORD (test code = [id number]) See_Comment H [Automated me ssage] The system which generated this result transmitted reference range: 27 - 49 mmHg. The reference range was not used to interpret this result as normal/abnormal. VENOUS PO2, CORD (test code = [id number]) See_Comment [Automated me ssage] The system which generated this result transmitted reference range: 17 - 41 mmHg. The reference range was not used to interpret this result as normal/abnormal. VENOUS BICARBONATE, CORD (test code = [id number]) See_Comment [Automa baldemar message] The system which generated this result transmitted reference range: 12 - 29 mEq/L. The reference range was not used to interpret this result as normal/abnormal. Lab Interpretation (test code = 43927-9) Abnormal [place] [facility] - ONCE [id number] 15:06:12 * Test Item Value Reference Range Interpretation Comme nts ABO & RH (test code = 20) B POSITIVE Performed at [facility] Laboratory Services [facility] Blood [address] Free: [phone] No. [id number] IAT (test code = 1185) Negative Performed at [facility] Laboratory Services [facility] Blood [address] Free: [phone] No. [id number] [facility] SPECIFIC [id number] 14:00:00* Test Item Value Reference Range Interpretation Comme nts POCT U SP GRAV (test code = 3255) . 1.005-1.025 POCT PH U (test code = 3254) . 5-8 POCT U LEUK EST (test code = 3263) . Negative - N egative POCT U NIT (test code = 3262) . Negative - Negati ve POCT U PROT (test code = 3259) Trace Negative - Negat dominique POCT U GLU (test code = 3256) Neg Negative - Negati ve POCT U KETONE (test code = 3258) . Negative - Neg ative POCT U UROBILI (test code = 3260) . 0.2-1 POCT U BILI (test code = 3261) . Negative - Negat dominique POCT U BLD (test code = 3257) . Negative - Negati ve POCT U COLOR (test code = 3266) . POCT U APPEAR (test code = 3267) . [facility] URINALYSIS W SPECIFIC [id number] 14:55:00* Test Item Value Reference Range Interpretation Comme nts POCT U SP GRAV (test code = 3255) * 1.005-1.025 POCT PH U (test code = 3254) * 5-8 POCT U LEUK EST (test code = 3263) * Negative - Negative POCT U NIT (test code = 3262) * Negative - Negati ve POCT U PROT (test code = 3259) negative Negative - Negat dominique POCT U GLU (test code = 3256) negative Negative - Negati ve POCT U KETONE (test code = 3258) * Negative - Neg ative POCT U UROBILI (test code = 3260) * 0.2-1 POCT U BILI (test code = 3261) * Negative - Negat dominique POCT U BLD (test code = 3257) * Negative - Negati ve POCT U COLOR (test code = 3266) * POCT U APPEAR (test code = 3267) * Lab Interpretation (test cod e = [id number]) Normal [facility] URINALYSIS W SPECIFIC [id number] 13:35:00* Test Item Value Reference Range Interpretation Comme nts POCT U SP GRAV (test code = 3255) . 1.005-1.025 POCT PH U (test code = 3254) . 5-8 POCT U LEUK EST (test code = 3263) . Negative - N egative POCT U NIT (test code = 3262) . Negative - Negati ve POCT U PROT (test code = 3259) Trace Negative - Negat dominique POCT U GLU (test code = 3256) Neg Negative - Negati ve POCT U KETONE (test code = 3258) . Negative - Neg ative POCT U UROBILI (test code = 3260) . 0.2-1 POCT U BILI (test code = 3261) . Negative - Negat dominique POCT U BLD (test code = 3257) . Negative - Negati ve POCT U COLOR (test code = 3266) . POCT U APPEAR (test code = 3267) . [facility] Notes Date/Time Note Provider Source 2024-06-01 10:35:28 Chief Complaint Patient presents with Physical Fasting Diana Ervin CMA II [facility]
[2024-12-18 18:58] LABS: Absolute Monocytes 0.3 K/uL (0.1-1.3); Absolute Neutrophil 8.6 K/uL (1.8-8.0); Basophils % 0.2 % (0-1.3); Eosinophils % 0.1 % (0-4.4); Hematocrit 36.6 % (36.0-45.0); Hemoglobin 12.1 g/dL (12.0-15.0); Lymphocytes % 9.8 % (15.3-44.8); MCH 26.8 pg (27.0-35.0); MCV 81.2 fL (80-100); MPV 9.5 fL (7.6-11.3); Monocytes % 2.6 % (3.3-12.3); Neutrophils % 87.3 % (41.7-73.7); Platelets 214 thou/uL (152-406); RBC Red Blood Cell Count 4.51 M/uL (3.86-4.86); Red Cell Distribution Width 14.2 % (12.1-15.2)
[2024-12-18 19:15] LABS: Specific Gravity > 1.030 (1.005-1.030); Urine Bacteria <20 /HPF (<20); Urine Bilirubin NEGATIVE (Negative); Urine Blood 3+ (Negative); Urine Clarity Extremely Turbid (Clear); Urine Color Yellow (Yellow); Urine Crystals Unidentified Few /HPF (None Seen); Urine Culture Reflex Order REFLEXED; Urine Glucose NEGATIVE (Negative); Urine Ketones 2+ (Negative); Urine Microscopic Reflex YN ORDER UMIC; Urine Mucus 4+ /HPF (None Seen); Urine Nitrite NEGATIVE (Negative); Urine Protein 1+ (Negative); Urine RBC >50 /HPF (None Seen); Urine Urobilinogen Normal (Normal); Urine WBC 20-50 /HPF (<5); Urine Yeast (Budding) Occasional /HPF (None Seen)
[2024-12-18 19:16] LABS: Albumin 4.2 g/dL (3.4-5.0); Albumin/Globulin Ratio 1.1 (1.1-1.8); Anion Gap 8.8 mEq/L (5.0-15.0); Bilirubin Total 0.4 mg/dL (0.2-1.0); Globulin 3.7 g/dL (2.3-3.5); Potassium 3.8 mEq/L (3.5-5.1); Protein, Total 7.9 g/dL (6.4-8.2)
[2024-12-18 19:17] LABS: Specific Gravity > 1.030 (1.005-1.030)
[2024-12-18] MEDS ORDERED: ONDANSETRON 4 MG/2 ML VIAL ONE (20:06)
[2024-12-18] MEDS ORDERED: KETOROLAC 30 MG/ML INJ ONE (20:06)
[2024-12-18] MEDS ORDERED: NA CHLORIDE 0.9% 1,000 ML ONE (20:10)
--- NOTE | 2024-12-18 20:19 | RAD REPORT ---
EXAMINATION: Stone Protocol CLINICAL INDICATION: Abdominal pain TECHNIQUE: CT abdomen and pelvis was performed, without IV contrast, as per department protocol. Oral contrast not given. Axial, sagittal and coronal reconstructions were obtained. One or more of the following dose reduction techniques were used: Automated exposure control, adjustment of the mA and k V according to the patient size, and iterative reconstruction. Unless otherwise specified, incidental findings do not require dedicated imaging follow-up. COMPARISON: [id number] FINDINGS: The lack of intravenous and oral contrast limits the sensitivity of this exam for evaluation of solid visceral organs, vascular structures, and bowel Bilateral renal calculi. Mild left hydronephrosis. Left ureter is dilated. 4 mm calculus left UPJ. Liver, spleen, pancreas and adrenals grossly normal No evidence of diverticulitis. Moderate amount of stool transverse and right colon IMPRESSION: 4 mm calculus left UVJ results in mild left hydronephrosis
--- NOTE | 2024-12-18 20:32 | EDPHYS ---
Physician Documentation [facility] Name: Raghavendra Torres Age: 29 yrs Sex: Female : 1995 Arrival Date: 12/18/2024 Time: 18:03 Bed 13 Private MD: ED Physician Rad Renae HPI: 12/18 20:31 This 29 yrs old Female presents to ER via Ambulatory with complaints of kb Abdominal Pain, Back Pain. 20:31 Pt is a 29 year old female who presents for left flank and lower abd pain that started kb earlier today. States it felt like period cramps, then became constant and sharp. Denies urinary symptoms. Reports nausea and vomiting x1. . 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 - Infectious Disease History:: Denies. - Social history:: Smoking status: Patient denies any tobacco usage or history of. ROS: 20:27 Constitutional: As per HPI kb Exam: 20:27 Constitutional: This is a well developed, well nourished patient who is awake, alert, kb and in no acute distress. Head/Face: Normocephalic, atraumatic. ENT: Moist Mucous membranes Cardiovascular: Regular rate Respiratory: Respirations even and unlabored. No increased work of breathing. Talking in full sentences Skin: Warm, dry with normal turgor. Normal color. MS/ Extremity: Pulses equal, no cyanosis. Neurovascular intact. Full, normal range of motion. Neuro: Awake and alert, GCS 15, oriented to person, place, time, and situation. 20:27 Abdomen/GI: Inspection: abdomen appears normal, Bowel sounds: normal, Palpation: soft, in all quadrants, mild abdominal tenderness, in the right lower quadrant and left lower quadrant, 20:27 Back: CVA tenderness, that is mild, is noted on the left, Vital Signs: 18:11 BP 130 / 89; Pulse 85; Resp 16; Temp 98.4(O); Pulse Ox 100% ; Weight 59.87 kg; Height 5 hb ft. 6 in. ; Pain 7/10; 20:59 BP 121 / 76; Pulse 89; Resp 18; Temp 98.8(O); Pulse Ox 99% on R/A; km10 18:11 Body Mass Index 21.31 (59.87 kg, 167.64 cm) hb 18:11 Pain Scale: Adult hb MDM: 18:07 Medical Screening Exam initiated kb 20:30 Data reviewed: vital signs, nurses notes. kb 20:30 Differential diagnosis: non-specific abd pain, Ureterolithiasis, urinary tract kb infection, ovarian cyst. Historians other than the Patient: Spouse/Significant Other: significant other. Counseling: I had a detailed discussion with the patient and/or guardian regarding the historical points, exam findings, and any diagnostic results supporting the discharge/admit diagnosis, lab results, radiology results, the need for outpatient follow up, a urologist, to return to the emergency department if symptoms worsen or persist or if there are any questions or concerns that arise at home. 12/18 18:14 Order name: CBC with Diff 12/18 18:14 Order name: CMP; Complete Time: 19:18 kb 12/18 18:14 Order name: Lipase; Complete Time: 19:18 kb 12/18 18:14 Order name: Test, Urine; Complete Time: 19:18 kb 12/18 18:14 Order name: UA Rfx Masood Cult if indicated; Complete Time: 19:18 kb 12/18 19:05 Order name: CBC Smear Scan EDUT 12/18 19:19 Order name: Urine Culture EDUT 12/18 19:19 Order name: CT Stone Protocol; Complete Time: 20:20 kb 12/18 18:14 Order name: IV Saline Lock; Complete Time: 18:33 kb 12/18 18:14 Order name: Labs collected and sent; Complete Time: 18:33 kb Administered Medications: 20:13 Drug: NS 0.9% IV 1000 ml IV at 1 bolus Per protocol; to be given as a bolus over 60 km10 minutes Route: IV; Rate: 1 bolus; Site: right antecubital; 20:59 Follow up: Response: No adverse reaction; IV Status: Completed infusion; IV Intake: km10 800ml 20:13 Drug: Ketorolac IVP 15 mg IVP once Route: IVP; Site: right antecubital; km10 20:33 Follow up: Response: No adverse reaction; Marked relief of symptoms 10 20:13 Drug: Ondansetron IVP 4 mg IVP once; over 2 minutes Route: IVP; Site: right antecubital;10 20:33 Follow up: Response: No adverse reaction; Marked relief of symptoms km10 20:46 Drug: Flomax PO 0.4 mg PO once Route: PO; 10 20:59 Follow up: Response: No adverse reaction; Pain is decreased 10 20:46 Drug: Hydrocodone-Acetaminophen PO (7.5 mg-325 mg) 1 tabs PO once Route: PO; 10 20:59 Follow up: Response: No adverse reaction; Marked relief of symptoms 10 Disposition: 21:12 Co-signature as Attending Physician, Rad Renae MD I reviewed the patient's care rt provided by the Advanced Practice Provider and agree with the diagnosis and treatment plan. Disposition Summary: 12/18/24 20:32 Discharge Ordered Notes: Location: Home kb Condition: Stable kb Diagnosis - Calculus of ureter kb Followup: kb - With: Emergency Department - When: As needed - Reason: Worsening of condition Followup: kb - With: Private Physician - When: 2 - 3 days - Reason: Recheck today's complaints, Continuance of care, Re-evaluation by your physician Discharge Instructions: - Discharge Summary Sheet kb - Kidney Stones, [id number] kb Forms: - Medication Reconciliation Form kb - Antibiotic Education kb - Prescription Opioid Use kb - Patient Portal Instructions kb - Leadership Thank You Letter kb Prescriptions: - Flomax 0.4 mg Oral capsule - take 1 capsule ORAL route daily; 10 capsule; Refills: 0, Product Selection kb Permitted - Augmentin 875-125 mg Oral Tablet - take 1 tablet ORAL route every 12 hours for 10 days; 20 tablet; Refills: 0, kb Product Selection Permitted - Zofran 4 mg Oral tablet - take 1 tablet ORAL route every 6 hours As needed; 12 tablet; Refills: 0, kb Product Selection Permitted - Diclofenac Sodium 75 mg Oral tablet, delayed release (enteric coated) - take 1 tablet ORAL route 2 times per day As needed; 30 tablet; Refills: 0, kb Product Selection Permitted Signatures: Dispatcher [employer] Rosanna Hauser, BROOK BUNDY-Cyndi Torre RN RN Rad Preciado MD MD rt Sachi Hills, RN RN km10 Corrections: (The following items were deleted from the chart) 18:15 18:14 CBC+H.LAB.BRZ ordered. EDMS EDMS 18:15 18:14 COMPREHENSIVE METABOLIC PANEL+C.LAB.BRZ ordered. EDMS EDMS 18:15 18:14 LIPASE+C.LAB.BRZ ordered. EDMS EDMS 18:15 18:14 Test, Urine+UC.LAB.BRZ ordered. EDMS EDMS 18:15 18:14 UA Rfx Masood Cult if indicated+U.LAB.BRZ ordered. EDMS EDMS
--- NOTE | 2024-12-18 20:32 | ER ---
Nurse's Notes [facility] Name: Raghavendra Torres Age: 29 yrs Sex: Female : 1995 Arrival Date: 12/18/2024 Time: 18:03 Bed 13 Private MD: Diagnosis: Calculus of ureter Presentation: 12/18 18:09 Chief complaint: Left low back and lower abdominal pain since this morning. Vomit x 1. hb Coronavirus screen: At this time, the client does not indicate any symptoms associated with coronavirus-19. Ebola Screen: No symptoms or risks identified at this time. Initial Sepsis Screen: Does the patient meet any 2 criteria? No. Patient's initial sepsis screen is negative. Does the patient have a suspected source of infection? No. Patient's initial sepsis screen is negative. Risk Assessment: Do you want to hurt yourself or someone else? Patient reports no desire to harm self or others. Onset of symptoms was December 18, 2024. 18:09 Method Of Arrival: Ambulatory hb 18:09 Acuity: KIM 3 hb Triage Assessment: 19:30 General: Appears uncomfortable, Behavior is cooperative. Pain: Complains of pain in km10 abdomen. GI: Pt is actively vomiting bile, Last BM was December 18, 2024. at 07:00. pt state she had to strain to have BM this morning. 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 - Infectious Disease History:: Denies. - Social history:: Smoking status: Patient denies any tobacco usage or history of. Screenin:32 [facility] ED Fall Risk Assessment (Adult) History of falling in the last 3 months, km10 including since admission No falls in past 3 months (0 pts) Confusion or Disorientation No (0 pts) Intoxicated or Sedated No (0 pts) Impaired Gait No (0 pts) Mobility Assist Device Used No (0 pt) Altered Elimination No (0 pt) Score/Fall Risk Level 0 - 2 = Low Risk. Abuse screen: Denies threats or abuse. Denies injuries from another. Nutritional screening: No deficits noted. Tuberculosis screening: No symptoms or risk factors identified. Assessment: 20:30 GI: Bowel sounds present X 4 quads. Abd is non tender. km10 20:52 Reassessment: Patient states symptoms have improved. km10 Vital Signs: 18:11 BP 130 / 89; Pulse 85; Resp 16; Temp 98.4(O); Pulse Ox 100% ; Weight 59.87 kg; Height 5 hb ft. 6 in. ; Pain 7/10; 20:59 BP 121 / 76; Pulse 89; Resp 18; Temp 98.8(O); Pulse Ox 99% on R/A; km10 18:11 Body Mass Index 21.31 (59.87 kg, 167.64 cm) hb 18:11 Pain Scale: Adult hb ED Course: 18:07 Patient arrived in ED. al6 18:07 Rosanna Ortega FNP-C is [facility]. kb 18:07 Rad Renae MD is Attending Physician. kb 18:10 Triage completed. hb 18:10 Arm band placed on. hb 18:33 CBC with Diff Sent. bc6 18:33 CMP Sent. bc6 18:33 Lipase Sent. bc6 18:33 Initial lab(s) drawn, by co, sent to lab. Inserted saline lock: 20 gauge in right bc6 antecubital area, using aseptic technique. Blood collected. Flushed with 10 mL NS. 18:48 UA Rfx Masood Cult if indicated Sent. bc6 18:49 Test, Urine Sent. bc6 19:32 CT Stone Protocol In Process Unspecified. EDMS 20:00 Patient has correct armband on for positive identification. km10 20:00 Provided Education on: plan of care. km10 20:04 Sachi Hills, RN is Primary Nurse. km10 21:06 No provider procedures requiring assistance completed. IV discontinued, intact, km10 bleeding controlled, No redness/swelling at site. Pressure dressing applied. Administered Medications: 20:13 Drug: NS 0.9% IV 1000 ml IV at 1 bolus Per protocol; to be given as a bolus over 60 km10 minutes Route: IV; Rate: 1 bolus; Site: right antecubital; 20:59 Follow up: Response: No adverse reaction; IV Status: Completed infusion; IV Intake: km10 800ml 20:13 Drug: Ketorolac IVP 15 mg IVP once Route: IVP; Site: right antecubital; km10 20:33 Follow up: Response: No adverse reaction; Marked relief of symptoms km10 20:13 Drug: Ondansetron IVP 4 mg IVP once; over 2 minutes Route: IVP; Site: right antecubital;km10 20:33 Follow up: Response: No adverse reaction; Marked relief of symptoms km10 20:46 Drug: Flomax PO 0.4 mg PO once Route: PO; km10 20:59 Follow up: Response: No adverse reaction; Pain is decreased km10 20:46 Drug: Hydrocodone-Acetaminophen PO (7.5 mg-325 mg) 1 tabs PO once Route: PO; km10 20:59 Follow up: Response: No adverse reaction; Marked relief of symptoms km10 Medication: 21:06 VIS not applicable for this client. km10 Intake: 20:59 IV: 800ml; Total: 800ml. km10 Outcome: 20:32 Discharge ordered by . kb 21:05 Discharged to home ambulatory, km10 21:05 Condition: stable 21:05 Discharge instructions given to patient, family, Instructed on discharge instructions, follow up and referral plans. medication usage, Demonstrated understanding of instructions, follow-up care, medications, Prescriptions given X 4, 21:06 Patient left the ED. km10 Signatures: Dispatcher [employer] EDMS Rosanna Ortega, PAINTER INTERIOR FINISH-C PAINTER INTERIOR FINISH-Cyndi Torre RN RN Cristin Cabrales6 Adrienne Hunter Kirsten, PHIL RN km10
[2024-12-18] MEDS ORDERED: TAMSULOSIN 0.4 MG SR CAP ONE (20:37)
[2024-12-18] MEDS ORDERED: HYDROCODONE/APAP 7.5/325 MG TAB ONE (20:37)
[2024-12-18 21:07] LABS: White Blood Cell Scan OK (OK)
[2024-12-18 21:08] LABS: Blood Morphology Comment NOT SEEN (NOT SEEN); Platelet Estimate ADEQ
[2024-12-18 21:34] VITALS: BP 121/76; TEMP 98.8; O2SAT 99
== END 2024-12-18 21:06 | disposition home or self-care (01) ==
LOC: ER 18:03
DX: N20.1 Calculus of ureter (principal)
CPT/HCPCS: 36415; 74176; 76377; 80053; 81001; 81025; 83690; 85025; 87086; 87088; 96361; 96374; 96375; 99284; J2405; J7030